=== PATIENT | female | born 1945 | race Caucasian/White ===

== ENCOUNTER 2021-05-16 16:49 | Outpatient (REF) | payer MEDICARE, SELFPAY ==
[2021-05-16 17:05] LABS: MANUAL DIFF FLAG NO
[2021-05-16 17:11] LABS: Basophils Absolute Auto 0.1 X10*3/uL (0.0-0.2); Basophils Percent Auto 0.7 % (0-2); Eosinophils Absolute Auto 0.6 X10*3/uL (0.0-0.4); Eosinophils Percent Auto 7.3 % (0-4); Hematocrit 34.4 % (37.0-47.0); Hemoglobin 11.1 g/dl (12.0-16.0); Imm Gran Abs Auto 0.01 X10*3/uL (0.00-0.03); Imm Gran Pct Auto 0.1 % (0.0-0.4); Lymphocytes Absolute Auto 2.6 X10*3/uL (1.2-4.9); Mean Corpuscular HGB Conc 32.3 g/dl (31.0-35.0); Mean Corpuscular Hemoglobin 29.5 pg (27.0-33.0); Mean Corpuscular Volume 91.5 fL (80.0-98.0); Mean Platelet Volume 10.5 fL (9.4-12.3); Monocytes Absolute Auto 0.6 X10*3/uL (0.1-1.2); Monocytes Percent Auto 7.1 % (2-11); Neutrophils Absolute Auto 4.6 x10*3/uL (2.0-8.3); Neutrophils Percent Auto 53.8 % (45-73); Platelet Count 205 X10*3/uL (160-400); Red Blood Count 3.76 X10*6/uL (4.20-5.50); Red Cell Distribution Width 14.5 % (11.0-16.0); White Blood Count 8.5 X10*3/uL (4.8-10.8)
[2021-05-16 17:30] LABS: Alanine Aminotransferase 7 U/L (0-31); Albumin Level 4.4 g/dL (3.5-5.0); Alkaline Phosphatase 87 U/L (39-117); Anion Gap 16 (12-20); Aspartate Amino Transferase 8 U/L (5-31); Bilirubin Total 0.3 mg/dL (0.0-1.0); Blood Urea Nitrogen 41 mg/dL (9-16); Calcium 10.3 mg/dL (8.4-10.2); Carbon Dioxide 25 mmol/L (22-29); Chloride 108 mmol/L (96-108); Estimated Glomerular Filt Rate 14; Glucose Random 172 mg/dL (60-115); Potassium 4.3 mmol/L (3.3-5.1); Sodium 145 mmol/L (135-145); Total Protein 7.9 g/dL (6.5-8.0)
[2021-05-16 18:08] LABS: Creatinine Urine 71.82 mg/dL; Protein/Creatinine Ratio, Ur 0.63 (<0.2); Total Protein Urine Random 45 mg/dL (<12)
[2021-05-17 16:02] LABS: PTHI 110 pg/mL (14-64)
== END 2021-05-16 16:50 | disposition home or self-care (01) ==
LOC: HO.LAB 16:49
PROVIDERS: Visit Provider Internal Medicine Hypertension Specialist
DX: I12.9 Hypertensive chronic kidney disease with stage 1 through stage 4 chronic kidney disease, or unspecified chronic kidney disease (principal); N18.9 Chronic kidney disease, unspecified
CPT/HCPCS: 36415; 80053; 83970; 84156; 85025

== ENCOUNTER 2021-07-25 14:55 | Outpatient (REF) | payer MEDICARE, SELFPAY ==
[2021-07-25 16:20] LABS: Anion Gap 12 (12-20); Blood Urea Nitrogen 36 mg/dL (9-16); Calcium 10.7 mg/dL (8.4-10.2); Carbon Dioxide 26 mmol/L (22-29); Chloride 109 mmol/L (96-108); Estimated Glomerular Filt Rate 17; Glucose Random 108 mg/dL (60-115); Potassium 4.2 mmol/L (3.3-5.1); Sodium 143 mmol/L (135-145)
[2021-07-25 17:22] LABS: Creatinine Urine 77.79 mg/dL; Protein/Creatinine Ratio, Ur 0.64 (<0.2); Total Protein Urine Random 50 mg/dL (<12)
[2021-07-26 07:54] LABS: ~Hepatitis C Antibody Nonreactive (Nonreactive)
[2021-07-26 07:57] LABS: HBsAGNum1 0.24 S/CO (0.00-0.99); Hepatitis B Surface Antigen Negative (Negative)
[2021-07-26 13:36] LABS: Anti Nuclear Antibody Screen NEGATIVE (NEGATIVE)
[2021-07-26 17:41] LABS: Complement C3 157 mg/dL (83-193)
[2021-07-27 12:21] LABS: Anti Glomerular Basement Memb <1.0 AI; Myeloperoxidase Antibody <1.0 AI; Proteinase 3 PR3 Antibodies <1.0 AI
[2021-07-31 07:12] LABS: Prot Elec - Albumin 4.2 g/dL (3.8-4.8); Prot Elec - Alpha1 0.3 g/dL (0.2-0.3); Prot Elec - Alpha2 0.9 g/dL (0.5-0.9); Prot Elec - Beta 1 0.5 g/dL (0.4-0.6); Prot Elec - Beta 2 0.4 g/dL (0.2-0.5); Prot Elec - Gamma 1.2 g/dL (0.8-1.7); Prot Elec - Total Protein 7.4 g/dL (6.1-8.1)
[2021-07-31 14:31] LABS: PEU-Protein Creat Ratio Rand 0.788 (0.021-0.161); PEU-Rand. Prot/Creat Ratio 788 mg/g creat (21-161); PEU-Random Ur. Gamma Globulin 15 %; PEU-Random Urine A1 Globulin 3 %; PEU-Random Urine A2 Globulin 8 %; PEU-Random Urine Albumin 57 %; PEU-Random Urine Beta Globulin 17 %; PEU-Random Urine Creatinine 80 mg/dL (20-275); PEU-Random Urine Protein 63 mg/dL (5-24)
[2021-08-01 16:31] LABS: IgA 294 mg/dL (70-320); IgG 1128 mg/dL (600-1540); IgM 120 mg/dL (50-300)
== END 2021-07-25 14:56 | disposition home or self-care (01) ==
LOC: HO.LAB 14:55
PROVIDERS: PCP Internal Medicine; Visit Provider Internal Medicine Hypertension Specialist
DX: N17.9 Acute kidney failure, unspecified (principal)
CPT/HCPCS: 80048; 82570; 82784; 83520; 84156; 84165; 84166; 86021; 86038; 86039; 86160; 86334; 86335; 86803; 87340

== ENCOUNTER 2021-10-17 15:45 | Outpatient (REF) | payer MEDICARE, SELFPAY ==
[2021-10-17 16:31] LABS: Appearance Urine CLEAR; Color Urine YELLOW; Glucose Urine UA NEG (NEG); Leukocyte Esterase Urine NEG (NEG); Nitrite Urine NEG (NEG); PH 5.5 (5.0-8.0); Specific Gravity - Urine 1.025 (1.005-1.025); Urine Blood 1+ (NEG); Urine Ketones NEG (NEG); Urine Protein 2+ MG/DL (NEG-TRACE)
[2021-10-17 16:39] LABS: WBC Urine 0 /HPF (0-4)
[2021-10-17 16:40] LABS: Bacteria Urine TRACE /LPF; Squamous Epithelial Cell Urine 2+ /LPF
[2021-10-17 16:44] LABS: Creatinine Urine 113.05 mg/dL; Protein/Creatinine Ratio, Ur 0.71 (<0.2); Total Protein Urine Random 80 mg/dL (<12)
[2021-10-18 04:14] LABS: HBc Num1 0.13 S/CO (0.00-0.79); HBsAGNum1 0.14 S/CO (0.00-0.99); Hepatitis B Core Antibody Nonreactive (Nonreactive); Hepatitis B Surface Antigen Negative (Negative)
[2021-10-18 22:22] LABS: Complement C3 162 mg/dL (83-193)
[2021-10-19 16:31] LABS: Anti Nuclear Antibody Screen NEGATIVE (NEGATIVE)
[2021-10-21 14:21] LABS: Anti Glomerular Basement Memb <1.0 AI
[2021-10-22 11:06] LABS: Prot Elec - Albumin 4.2 g/dL (3.8-4.8); Prot Elec - Alpha1 0.3 g/dL (0.2-0.3); Prot Elec - Alpha2 0.9 g/dL (0.5-0.9); Prot Elec - Beta 1 0.5 g/dL (0.4-0.6); Prot Elec - Beta 2 0.4 g/dL (0.2-0.5); Prot Elec - Total Protein 7.3 g/dL (6.1-8.1)
[2021-10-23 11:05] LABS: Neutrophil Cyto Ab Screen ATYP P-ANCA POS (NEGATIVE)
== END 2021-10-17 15:46 | disposition home or self-care (01) ==
LOC: HO.LAB 15:45
PROVIDERS: PCP Internal Medicine; Visit Provider Internal Medicine Hypertension Specialist
DX: I12.9 Hypertensive chronic kidney disease with stage 1 through stage 4 chronic kidney disease, or unspecified chronic kidney disease (principal); N18.4 Chronic kidney disease, stage 4 (severe)
CPT/HCPCS: 81001; 83520; 84156; 84165; 86036; 86037; 86038; 86039; 86160; 86335; 86704; 87340

== ENCOUNTER 2021-11-05 12:58 | Outpatient (REF) | payer MEDICARE, SELFPAY ==
[2021-11-05 13:49] LABS: MANUAL DIFF FLAG NO
[2021-11-05 14:00] LABS: Basophils Absolute Auto 0.1 X10*3/uL (0.0-0.2); Basophils Percent Auto 0.6 % (0-2); Eosinophils Absolute Auto 0.7 X10*3/uL (0.0-0.4); Eosinophils Percent Auto 8.8 % (0-4); Hematocrit 33.7 % (37.0-47.0); Hemoglobin 11.1 g/dl (12.0-16.0); Imm Gran Abs Auto 0.02 X10*3/uL (0.00-0.03); Imm Gran Pct Auto 0.2 % (0.0-0.4); Lymphocytes Absolute Auto 2.4 X10*3/uL (1.2-4.9); Mean Corpuscular HGB Conc 32.9 g/dl (31.0-35.0); Mean Corpuscular Hemoglobin 29.8 pg (27.0-33.0); Mean Corpuscular Volume 90.6 fL (80.0-98.0); Mean Platelet Volume 10.7 fL (9.4-12.3); Monocytes Absolute Auto 0.8 X10*3/uL (0.1-1.2); Monocytes Percent Auto 10.2 % (2-11); Neutrophils Absolute Auto 4.1 x10*3/uL (2.0-8.3); Neutrophils Percent Auto 50.2 % (45-73); Platelet Count 174 X10*3/uL (160-400); Red Blood Count 3.72 X10*6/uL (4.20-5.50); Red Cell Distribution Width 13.8 % (11.0-16.0); White Blood Count 8.1 X10*3/uL (4.8-10.8)
[2021-11-05 14:09] LABS: Prothrombin Time 10.9 SEC (9.9-13.0)
[2021-11-05 14:39] LABS: Anion Gap 12 (12-20); Blood Urea Nitrogen 37 mg/dL (9-16); Calcium 10.3 mg/dL (8.4-10.2); Carbon Dioxide 26 mmol/L (22-29); Chloride 107 mmol/L (96-108); Estimated Glomerular Filt Rate 16; Potassium 4.3 mmol/L (3.3-5.1); Sodium 141 mmol/L (135-145)
== END 2021-11-05 12:59 | disposition home or self-care (01) ==
LOC: HO.LAB 12:58
PROVIDERS: PCP Internal Medicine; Visit Provider Internal Medicine Hypertension Specialist
DX: N18.4 Chronic kidney disease, stage 4 (severe) (principal)
CPT/HCPCS: 36415; 80051; 82310; 82565; 84520; 85025; 85610

== ENCOUNTER 2022-06-22 13:53 | Emergency (ER) | payer MEDICARE, SELFPAY ==
--- NOTE | ~2022-06-22 | XR_ITS ---
EXAMINATION: XR SHOULDER, RIGHT CLINICAL INFORMATION: Right shoulder pain COMPARISON: None TECHNIQUE: AP external rotation, Grashey, scapular Y, and axillary views of the right shoulder. FINDINGS: The glenohumeral joint space maintained. Minimal reduction AC joint space with inferior acromial spurring. There is a sclerotic lesion humeral head likely osteoid osteoma. No visible fracture or dislocation seen but is mild anterior periarticular spurring. No soft tissue calcification seen. XR/XR shoulder RT min 2V IMPRESSION: Mild degenerative changes right A.C. joint with inferior acromial and periarticular spurring. No visible acute fracture or dislocation seen. Sclerotic lesion or right humeral head, likely osteoid osteoma
[2022-06-22 14:04] VITALS: BP 154/76; PULSE 88; RESP 18; TEMP 36.8; O2SAT 98; BMI 27.4
--- NOTE | 2022-06-22 14:05 | ED.GENADULT ---
HPI - General Adult General Chief complaint: Extremity Injury, Upper <DREAD Hugo - Last Filed: 06/22/22 18:32> Stated complaint: R arm/shoulder pain no inj <DREAD Hugo - Last Filed: 06/22/22 18:32> Time Seen by Provider: 06/22/22 15:18 <DREAD Hugo - Last Filed: 06/22/22 18:32> History of Present Illness HPI narrative: Patient complains of atraumatic right shoulder pain which began yesterday without injury She denies any redness or swelling, it hurts to move the arm but she is able to move it, she has no other swollen joints denies any fever denies any numbness weakness or tingling, no chest pain no shortness of breath <DREAD Baez - Last Filed: 06/28/22 11:46> Related Data Allergies/adverse reactions: Allergies Allergy/AdvReac Type Severity Reaction Status Date / Time No Known Allergies Allergy Verified 06/22/22 14:04 <DREAD Hugo - Last Filed: 06/22/22 18:32> [facility] Past Medical History Source: nursing notes reviewed <DREAD Baez - Last Filed: 06/28/22 11:46> Physical Exam ED Vital Signs: Vital Signs - 24 hr 06/22/22 14:04 Temperature 98.2 F Pulse Rate 88 Respiratory Rate 18 Blood Pressure 154/76 H Pulse Oximetry 98 Oxygen Delivery Method Room Air BMI result Body Mass Index 27.4 <DREAD Hugo Last Filed: 06/22/22 18:32> Vital Signs - 24 hr 06/22/22 14:04 Temperature 98.2 F Pulse Rate 88 Respiratory Rate 18 Blood Pressure 154/76 H Pulse Oximetry 98 Oxygen Delivery Method Room Air BMI result Body Mass Index 27.4 <DREAD Baez - Last Filed: 06/28/22 11:46> General appearance comfortable no distress Head is normocephalic atraumatic Neck is supple Respiratory no distress Chest clear to auscultation bilateral Heart no murmur Abdomen soft nontender Extremities the right shoulder is not red it is not warm there is no rash or wound no swelling The right shoulder does have full range of motion but there is some discomfort with range of motion, neurovascular intact distal, there was tenderness to the anterior and lateral deltoid area of the shoulder Other extremities normal Neuro no focal motor sensory deficits <DREAD Baez - Last Filed: 06/28/22 11:46> Course Course Course Narrative: RME: 76 yold female presents to the ED for right shoulder pain that is worse on movement without any trauma. Symptoms since yesterday. patient deneis redness or swelling. NEuro/vascular exam of extremity intact. shoulder motor movement limited due to pain. shoulder xray ordered. <DREAD Hugo Last Filed: 06/22/22 18:32> RME: 76 yold female presents to the ED for right shoulder pain that is worse on movement without any trauma. Symptoms since yesterday. patient deneis redness or swelling. NEuro/vascular exam of extremity intact. shoulder motor movement limited due to pain. shoulder xray ordered. 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, Osteoid osteoma <DREAD Hugo Last Filed: 06/22/22 18:32> Patient Disposition: Home, Self-Care <DREAD Hugo Last Filed: 06/22/22 18:32> Additional Instructions: X-ray showed some arthritic changes There was also a probable osteoma, which is a likely benign lesion that may or may not be causing your pain, so follow with orthopedist for further evaluation and possible treatment Exam did not show any sign of infection, there were no broken bone seen on the x-ray Use Tylenol if needed Return any time any worse condition or any concerns <DREAD Hugo Last Filed: 06/22/22 18:32> Referrals: Bubba Lim MD [Physician] - (Right shoulder pain) <DREAD Hugo Last Filed: 06/22/22 18:32> Interventions: ED Discharge Assessment Last Done: 06/22/22 16:09 <DREAD Hugo - Last Filed: 06/22/22 18:32> Discharge Date/Time: 06/22/22 16:11 <DREAD Hugo - Last Filed: 06/22/22 18:32>
== END 2022-06-22 16:11 | disposition home or self-care (01) ==
PROVIDERS: Emergency Provider Emergency Medicine; PCP Internal Medicine
DX: M25.511 Pain in right shoulder (principal)
CPT/HCPCS: 73030; 99282; 99283

== ENCOUNTER → 2022-07-10 10:22 | Outpatient (BNVA) | payer MEDICARE, SELFPAY | PROVIDERS: PCP Internal Medicine; Visit Provider Physician Assistant | DX: M75.101 Unspecified rotator cuff tear or rupture of right shoulder, not specified as traumatic (principal) | CPT/HCPCS: 99202 ==

== ENCOUNTER 2022-09-18 15:41 | Outpatient (REF) | payer MEDICARE, SELFPAY ==
[2022-09-18 17:48] LABS: Hematocrit 34.2 % (37.0-47.0); Hemoglobin 11.1 g/dl (12.0-16.0); Mean Corpuscular HGB Conc 32.5 g/dl (31.0-35.0); Mean Corpuscular Hemoglobin 29.1 pg (27.0-33.0); Mean Corpuscular Volume 89.5 fL (80.0-98.0); Mean Platelet Volume 10.9 fL (9.4-12.3); Platelet Count 215 X10*3/uL (160-400); Red Blood Count 3.82 X10*6/uL (4.20-5.50); Red Cell Distribution Width 14.1 % (11.0-16.0); White Blood Count 7.9 X10*3/uL (4.8-10.8)
[2022-09-18 18:13] LABS: Anion Gap 16 (12-20); Blood Urea Nitrogen 38 mg/dL (9-16); Calcium 9.3 mg/dL (8.4-10.2); Carbon Dioxide 22 mmol/L (22-29); Chloride 110 mmol/L (96-108); Estimated Glomerular Filt Rate 17; Glucose Random 113 mg/dL (60-115); Potassium 4.6 mmol/L (3.3-5.1); Sodium 143 mmol/L (135-145)
[2022-09-22 11:03] LABS: Calcium (PTHI) 9.7 mg/dL (8.6-10.4); PTHI 120 pg/mL (16-77)
== END 2022-09-18 15:42 | disposition home or self-care (01) ==
LOC: HO.LAB 15:41
PROVIDERS: Visit Provider Internal Medicine Hypertension Specialist
DX: N18.4 Chronic kidney disease, stage 4 (severe) (principal)
CPT/HCPCS: 36415; 80048; 83970; 85027

== ENCOUNTER 2023-03-02 14:07 | Outpatient (REF) | payer MEDICARE, SELFPAY ==
[2023-03-02 16:05] LABS: Alanine Aminotransferase 7 U/L (0-31); Albumin Level 4.1 g/dL (3.5-5.0); Alkaline Phosphatase 69 U/L (39-117); Anion Gap 14 (12-20); Aspartate Amino Transferase 8 U/L (5-31); Bilirubin Total 0.4 mg/dL (0.0-1.0); Blood Urea Nitrogen 38 mg/dL (9-16); Calcium 9.1 mg/dL (8.4-10.2); Carbon Dioxide 21 mmol/L (22-29); Chloride 111 mmol/L (96-108); Estimated Glomerular Filt Rate 18; Glucose Random 154 mg/dL (60-115); Sodium 142 mmol/L (135-145); Total Protein 7.3 g/dL (6.5-8.0)
[2023-03-03 15:18] LABS: Calcium (PTHI) 9.1 mg/dL (8.6-10.4); PTHI 149 pg/mL (16-77)
== END 2023-03-02 14:08 | disposition home or self-care (01) ==
LOC: HO.LAB 14:07
PROVIDERS: PCP Internal Medicine; Visit Provider Internal Medicine Hypertension Specialist
DX: N18.4 Chronic kidney disease, stage 4 (severe) (principal)
CPT/HCPCS: 36415; 80053; 83970

== ENCOUNTER 2023-07-06 11:27 | Outpatient (AMB) | payer MEDICARE, SELFPAY ==
[2023-07-06 11:30] VITALS: BP 130/56; PULSE 82; O2SAT 96; BMI 28.3
--- NOTE | 2023-07-06 11:30 | HO.NEPHOV ---
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 She is here for further follow-up. No specific complaints today. PFSH Family History Mother Diabetes Hypertension H/O kidney removal Social History (Updated 07/06/23 @ 11:33 by Kierra Bobby) Alcohol intake: never Patient Tobacco Use Status: Former Tobacco user Vital Signs 07/06/23 11:30 Height 5 ft 6 in Weight 175 lb 8 oz BMI 28.3 BP 130/56 L Blood Pressure Location Rt brachial Position Sitting Pulse 82 Pulse Source Pulse Oximeter Pulse Oximetry (%) 96 Oxygen Delivery Method Room Air Physical Exam Vital Signs: Last Vital Signs Pulse 82 07/06/23 11:30 BP 130/56 L 07/06/23 11:30 Pulse Ox 96 07/06/23 11:30 Oxygen Delivery Method Room Air 07/06/23 11:30 BMI result Body Mass Index 28.3 Const General: comfortable Nutritional Appearance: well nourished Orientation/consciousness: patient oriented x3 HEENT Head: No normal to inspection Mouth: moist mucous membranes Neck Neck: Yes supple and Yes no JVD Resp Auscultation: clear to auscultation bilaterally, no rales and rub present Cardio Jugular venous distension: no JVD Palpation: no palpable S3 and no palpable S4 Heart sounds: no rubs GI Palpation (GI): Soft to palpation and nontender Percussion: No Fluid wave present General: Yes no CVA tenderness Back/Spine/Pelvis Back: no CVA tenderness Skin General skin exam: no rashes or lesions noted Neuro General: patient oriented x3 Extrem General: Yes no pedal edema and No clubbing Assessment & Plan Assessment & Plan (1) CKD (chronic kidney disease): Code(s): N18.9 - Chronic kidney disease, unspecified (2) Diabetes mellitus: Code(s): E11.9 - Type 2 diabetes mellitus without complications Plan Elderly woman with longstanding diabetes mellitus with CKD 4. 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 At present renal function stable at baseline. Goal is to slow the portion disease Continue to avoid nephrotoxic agents. Optimize blood pressure and maintain blood pressure less than 130/80. Continue with losartan for renal protection. All questions were answered. Orders: Orders Complete Blood Count no Diff 07/06/23 N18.9 - Chronic kidney disease, unspecified Comprehensive Met. Panel 07/06/23 N18.9 - Chronic kidney disease, unspecified Parathyroid Hormone Intact 07/06/23 N18.9 - Chronic kidney disease, unspecified Vitamin D 25-OH (D2 and D3) 07/06/23 N18.9 - Chronic kidney disease, unspecified Creatinine Urine 07/06/23 N18.9 - Chronic kidney disease, unspecified Total Protein Urine Random 07/06/23 N18.9 - Chronic kidney disease, unspecified UA and rflx microscopic 07/06/23 N18.9 - Chronic kidney disease, unspecified Hemoglobin A1c 07/06/23 N18.9 - Chronic kidney disease, unspecified, E11.9 - Type 2 diabetes mellitus without complications Coding Level of Care Code Est Pt Level 4 (80000) Diagnoses CKD (chronic kidney disease) N18.9 Diabetes mellitus E11.9 Results Reviewed Nephrology Results: Hgb 11.1 g/dl (12.0-16.0) L 07/06/23 WBC 7.7 X10*3/uL (4.8-10.8) 07/06/23 Plt Count 217 X10*3/uL (160-400) 07/06/23 Sodium 144 mmol/L (135-145) 07/06/23 Potassium 4.3 mmol/L (3.3-5.1) 07/06/23 Chloride 114 mmol/L (96-108) H 07/06/23 Carbon Dioxide 20 mmol/L (22-29) L 07/06/23 BUN 45 mg/dL (9-16) H 07/06/23 Creatinine 2.85 mg/dL (0.5-1.4) H 07/06/23 Calcium 9.8 mg/dL (8.4-10.2) 07/06/23 PTH Intact 101.1 pg/mL (8.7-77.1) H 07/06/23 Urine Protein 100 (2+) mg/dL (Neg-Trace) H 07/06/23 Urine Creatinine 147.27 mg/dL 07/06/23 Protein/Creatinin Ratio 0.71 (<0.2) H 10/17/21
== END 2023-07-06 11:48 | disposition home or self-care (01) ==
PROVIDERS: PCP Internal Medicine; Visit Provider Internal Medicine Hypertension Specialist
DX: N18.9 Chronic kidney disease, unspecified (principal); E11.9 Type 2 diabetes mellitus without complications
CPT/HCPCS: 99214

== ENCOUNTER → 2023-07-06 11:27 | Outpatient (BNVA) | payer MEDICARE, SELFPAY | PROVIDERS: PCP Internal Medicine; Visit Provider Internal Medicine Hypertension Specialist | DX: E11.22 Type 2 diabetes mellitus with diabetic chronic kidney disease (principal); N18.4 Chronic kidney disease, stage 4 (severe) | CPT/HCPCS: 99212 ==

== ENCOUNTER 2023-07-06 11:52 | Outpatient (REF) | payer MEDICARE, SELFPAY ==
[2023-07-06 13:19] LABS: Hematocrit 34.6 % (37.0-47.0); Hemoglobin 11.1 g/dl (12.0-16.0); Mean Corpuscular HGB Conc 32.1 g/dl (31.0-35.0); Mean Corpuscular Hemoglobin 29.1 pg (27.0-33.0); Mean Corpuscular Volume 90.8 fL (80.0-98.0); Mean Platelet Volume 11.1 fL (9.4-12.3); Platelet Count 217 X10*3/uL (160-400); Red Blood Count 3.81 X10*6/uL (4.20-5.50); Red Cell Distribution Width 13.9 % (11.0-16.0); White Blood Count 7.7 X10*3/uL (4.8-10.8)
[2023-07-06 13:21] LABS: Appearance Urine Cloudy; Color Urine Yellow; Glucose Urine UA Negative (Negative); Leukocyte Esterase Urine Small (1+) (Negative); Nitrite Urine Negative (Negative); PH 5.5 (5.0-9.0); Specific Gravity - Urine 1.015 (1.005-1.025); UMIC TRIGGER UA YES; Urine Blood Trace (Negative); Urine Ketones Negative (Negative); Urine Protein 100 (2+) mg/dL (Neg-Trace)
[2023-07-06 13:40] LABS: Estimated Average Glucose 140 mg/dL; Hemoglobin A1c % 6.5 % (<6.0)
[2023-07-06 13:50] LABS: Bacteria Urine Trace (None Seen); Granular Casts Urine Present; RBC Urine 0-2 /HPF (0-2)
[2023-07-06 14:00] LABS: Alanine Aminotransferase 12 U/L (0-31); Albumin Level 4.2 g/dL (3.5-5.0); Alkaline Phosphatase 67 U/L (39-117); Anion Gap 14 (12-20); Aspartate Amino Transferase 13 U/L (5-31); Bilirubin Total 0.3 mg/dL (0.0-1.0); Blood Urea Nitrogen 45 mg/dL (9-16); Calcium 9.8 mg/dL (8.4-10.2); Carbon Dioxide 20 mmol/L (22-29); Chloride 114 mmol/L (96-108); Estimated Glomerular Filt Rate 16; Glucose Random 133 mg/dL (60-115); Parathyroid Hormone Intact 101.1 pg/mL (8.7-77.1); Potassium 4.3 mmol/L (3.3-5.1); Sodium 144 mmol/L (135-145); Total Protein 7.7 g/dL (6.5-8.0)
[2023-07-06 14:03] LABS: Creatinine Urine 147.27 mg/dL; Total Protein Urine Random 127 mg/dL (<12)
[2023-07-10 14:22] LABS: Vitamin D 25-OH, D2 <4 ng/mL; Vitamin D 25-OH, D3 44 ng/mL; Vitamin D 25-OH, Total 44 ng/mL (30-100)
== END 2023-07-06 11:53 | disposition home or self-care (01) ==
LOC: HO.10HDL 11:52
PROVIDERS: Visit Provider Internal Medicine Hypertension Specialist
DX: E11.22 Type 2 diabetes mellitus with diabetic chronic kidney disease (principal); N18.9 Chronic kidney disease, unspecified
CPT/HCPCS: 36415; 80053; 81001; 82306; 82570; 83036; 83970; 84156; 85027

== ENCOUNTER 2023-10-05 11:33 | Outpatient (AMB) | payer MEDICARE, SELFPAY ==
[2023-10-05 11:34] VITALS: BP 132/66; PULSE 121; O2SAT 95; BMI 29.0
--- NOTE | 2023-10-05 11:34 | HO.NEPHOV ---
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 h/o P-ANCA positivity She is here for further follow-up. No specific complaints today. PFSH Family History Mother Diabetes Hypertension H/O kidney removal Social History Alcohol intake: never Patient Tobacco Use Status: Former Tobacco user Physical Exam Vital Signs: Last Vital Signs Pulse 121 H 10/05/23 11:34 BP 132/66 10/05/23 11:34 Pulse Ox 95 10/05/23 11:34 Oxygen Delivery Method Room Air 10/05/23 11:34 BMI result Body Mass Index 29.0 Const General: comfortable Nutritional Appearance: well nourished Orientation/consciousness: patient oriented x3 HEENT Head: No normal to inspection Mouth: moist mucous membranes Neck Neck: Yes supple and Yes no JVD Resp Auscultation: clear to auscultation bilaterally, no rales and rub present Cardio Jugular venous distension: no JVD Palpation: no palpable S3 and no palpable S4 Heart sounds: no rubs GI Palpation (GI): Soft to palpation and nontender Percussion: No Fluid wave present General: Yes no CVA tenderness Back/Spine/Pelvis Back: no CVA tenderness Skin General skin exam: no rashes or lesions noted Neuro General: patient oriented x3 Extrem General: Yes no pedal edema and No clubbing Results Reviewed Nephrology Results: Hgb 11.1 g/dl (12.0-16.0) L 07/06/23 WBC 7.7 X10*3/uL (4.8-10.8) 07/06/23 Plt Count 217 X10*3/uL (160-400) 07/06/23 Sodium 144 mmol/L (135-145) 07/06/23 Potassium 4.3 mmol/L (3.3-5.1) 07/06/23 Chloride 114 mmol/L (96-108) H 07/06/23 Carbon Dioxide 20 mmol/L (22-29) L 07/06/23 BUN 45 mg/dL (9-16) H 07/06/23 Creatinine 2.85 mg/dL (0.5-1.4) H 07/06/23 Calcium 9.8 mg/dL (8.4-10.2) 07/06/23 PTH Intact 101.1 pg/mL (8.7-77.1) H 07/06/23 Urine Protein 100 (2+) mg/dL (Neg-Trace) H 07/06/23 Urine Creatinine 147.27 mg/dL 07/06/23 Protein/Creatinin Ratio 0.71 (<0.2) H 10/17/21 Assessment & Plan Assessment & Plan (1) CKD (chronic kidney disease): Code(s): N18.9 - Chronic kidney disease, unspecified Category: Medical (2) Diabetes mellitus: Code(s): E11.9 - Type 2 diabetes mellitus without complications Category: Medical Plan Elderly woman with longstanding diabetes mellitus with CKD 4. 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 At present renal function stable at baseline. Goal is to slow the portion disease Continue to avoid nephrotoxic agents. Optimize blood pressure and maintain blood pressure less than 130/80. Continue with losartan for renal protection. h/o P-ANCA positivity- shall recheck All questions were answered. Orders: Orders Comprehensive Met. Panel Today N18.9 - Chronic kidney disease, unspecified Parathyroid Hormone Intact Today N18.9 - Chronic kidney disease, unspecified Neutrophil Cytoplasma Ab Today N18.9 - Chronic kidney disease, unspecified Myeloperoxidase Antibody Today N18.9 - Chronic kidney disease, unspecified Proteinase 3 PR3 Antibodies Today N18.9 - Chronic kidney disease, unspecified Complete Blood Count Auto Diff Today N18.30 - Chronic kidney disease, stage 3 unspecified, N18.9 - Chronic kidney disease, unspecified Hemoglobin A1c Today N18.9 - Chronic kidney disease, unspecified Phosphorus Today N18.9 - Chronic kidney disease, unspecified Coding Level of Care Code Est Pt Level 4 (40089) Diagnoses CKD (chronic kidney disease) N18.9 Diabetes mellitus E11.9
== END 2023-10-05 11:48 | disposition home or self-care (01) ==
PROVIDERS: PCP Internal Medicine; Visit Provider Internal Medicine Hypertension Specialist
DX: N18.9 Chronic kidney disease, unspecified (principal); E11.9 Type 2 diabetes mellitus without complications
CPT/HCPCS: 99214

== ENCOUNTER → 2023-10-05 11:33 | Outpatient (BNVA) | payer MEDICARE, SELFPAY | PROVIDERS: PCP Internal Medicine; Visit Provider Internal Medicine Hypertension Specialist | DX: E11.22 Type 2 diabetes mellitus with diabetic chronic kidney disease (principal); E11.21 Type 2 diabetes mellitus with diabetic nephropathy; N18.4 Chronic kidney disease, stage 4 (severe) | CPT/HCPCS: 99212 ==

== ENCOUNTER 2023-10-06 12:05 | Outpatient (REF) | payer MEDICARE, SELFPAY ==
[2023-10-06 13:15] LABS: MANUAL DIFF FLAG NO
[2023-10-06 13:30] LABS: Basophils Absolute Auto 0.1 X10*3/uL (0.0-0.2); Basophils Percent Auto 0.9 % (0-2); Eosinophils Absolute Auto 0.4 X10*3/uL (0.0-0.4); Hematocrit 33.4 % (37.0-47.0); Hemoglobin 11.1 g/dl (12.0-16.0); Imm Gran Abs Auto 0.04 X10*3/uL (0.00-0.03); Imm Gran Pct Auto 0.5 % (0.0-0.4); Lymphocytes Absolute Auto 1.8 X10*3/uL (1.2-4.9); Lymphocytes Percent Auto 23.5 % (20-40); Mean Corpuscular HGB Conc 33.2 g/dl (31.0-35.0); Mean Corpuscular Hemoglobin 30.6 pg (27.0-33.0); Mean Platelet Volume 10.9 fL (9.4-12.3); Monocytes Absolute Auto 0.8 X10*3/uL (0.1-1.2); Monocytes Percent Auto 10.5 % (2-11); Neutrophils Absolute Auto 4.5 x10*3/uL (2.0-8.3); Neutrophils Percent Auto 59.6 % (45-73); Platelet Count 182 X10*3/uL (160-400); Red Blood Count 3.63 X10*6/uL (4.20-5.50); Red Cell Distribution Width 14.4 % (11.0-16.0); White Blood Count 7.5 X10*3/uL (4.8-10.8)
[2023-10-06 13:54] LABS: Alanine Aminotransferase 12 U/L (0-31); Albumin Level 4.1 g/dL (3.5-5.0); Alkaline Phosphatase 68 U/L (39-117); Anion Gap 12 (12-20); Aspartate Amino Transferase 12 U/L (5-31); Bilirubin Total 0.4 mg/dL (0.0-1.0); Blood Urea Nitrogen 30 mg/dL (9-16); Calcium 8.9 mg/dL (8.4-10.2); Carbon Dioxide 21 mmol/L (22-29); Chloride 114 mmol/L (96-108); Estimated Glomerular Filt Rate 18; Glucose Random 251 mg/dL (60-115); Phosphorus 3.2 mg/dL (2.7-4.5); Potassium 3.9 mmol/L (3.3-5.1); Sodium 143 mmol/L (135-145); Total Protein 7.4 g/dL (6.5-8.0)
[2023-10-06 15:13] LABS: Estimated Average Glucose 151 mg/dL; Hemoglobin A1C 150.3066 umol/L; Hemoglobin A1c % 6.9 % (<6.0)
[2023-10-06 16:08] LABS: Parathyroid Hormone Intact 308.8 pg/mL (8.7-77.1)
[2023-10-07 20:23] LABS: Myeloperoxidase Antibody <1.0 AI; Proteinase 3 PR3 Antibodies <1.0 AI
[2023-10-09 14:27] LABS: Atypical P-ANCA Titer 1:40 titer (<1:20); Neutrophil Cyto Ab Screen ATYP P-ANCA POS (NEGATIVE)
== END 2023-10-06 12:06 | disposition home or self-care (01) ==
LOC: HO.10HDL 12:05
PROVIDERS: Visit Provider Internal Medicine Hypertension Specialist
DX: N18.9 Chronic kidney disease, unspecified (principal); N18.30 Chronic kidney disease, stage 3 unspecified
CPT/HCPCS: 36415; 80053; 83036; 83970; 84100; 85025; 86021; 86036; 86037

== ENCOUNTER 2024-02-01 11:20 | Outpatient (REF) | payer MEDICARE, SELFPAY ==
[2024-02-01 12:05] LABS: MANUAL DIFF FLAG NO
[2024-02-01 12:46] LABS: Basophils Absolute Auto 0.1 X10*3/uL (0.0-0.2); Basophils Percent Auto 0.8 % (0-2); Eosinophils Absolute Auto 0.5 X10*3/uL (0.0-0.4); Eosinophils Percent Auto 6.1 % (0-4); Hematocrit 34.6 % (37.0-47.0); Hemoglobin 11.3 g/dl (12.0-16.0); Imm Gran Abs Auto 0.02 X10*3/uL (0.00-0.03); Imm Gran Pct Auto 0.3 % (0.0-0.4); Lymphocytes Absolute Auto 1.7 X10*3/uL (1.2-4.9); Lymphocytes Percent Auto 22.2 % (20-40); Mean Corpuscular HGB Conc 32.7 g/dl (31.0-35.0); Mean Corpuscular Hemoglobin 30.2 pg (27.0-33.0); Mean Corpuscular Volume 92.5 fL (80.0-98.0); Mean Platelet Volume 10.6 fL (9.4-12.3); Monocytes Absolute Auto 0.7 X10*3/uL (0.1-1.2); Monocytes Percent Auto 9.2 % (2-11); Neutrophils Absolute Auto 4.7 x10*3/uL (2.0-8.3); Neutrophils Percent Auto 61.4 % (45-73); Platelet Count 168 X10*3/uL (160-400); Red Blood Count 3.74 X10*6/uL (4.20-5.50); White Blood Count 7.6 X10*3/uL (4.8-10.8)
[2024-02-01 13:10] LABS: Estimated Average Glucose 148 mg/dL; Hemoglobin A1c % 6.8 % (<6.0)
[2024-02-01 13:13] LABS: Alanine Aminotransferase 17 U/L (0-31); Albumin Level 4.2 g/dL (3.5-5.0); Alkaline Phosphatase 57 U/L (39-117); Anion Gap 14 (12-20); Aspartate Amino Transferase 15 U/L (5-31); Bilirubin Total 0.6 mg/dL (0.0-1.0); Blood Urea Nitrogen 31 mg/dL (9-16); Calcium 9.2 mg/dL (8.4-10.2); Carbon Dioxide 23 mmol/L (22-29); Chloride 109 mmol/L (96-108); Estimated Glomerular Filt Rate 17; Glucose Random 144 mg/dL (60-115); Potassium 4.8 mmol/L (3.3-5.1); Sodium 141 mmol/L (135-145); Total Protein 7.4 g/dL (6.5-8.0); Uric Acid 6.1 mg/dL (2.4-5.7)
[2024-02-01 13:14] LABS: Parathyroid Hormone Intact 305.9 pg/mL (8.7-77.1)
[2024-02-01 13:34] LABS: Appearance Urine Clear; Color Urine Yellow; Glucose Urine UA Negative (Negative); Leukocyte Esterase Urine Small (1+) (Negative); Nitrite Urine Negative (Negative); PH 5.5 (5.0-9.0); UMIC TRIGGER UA YES; Urine Blood Trace (Negative); Urine Ketones Negative (Negative); Urine Protein 100 (2+) mg/dL (Neg-Trace)
[2024-02-01 13:59] LABS: Creatinine Urine 63.53 mg/dL; Total Protein Urine Random 81 mg/dL (<12)
[2024-02-01 14:04] LABS: Bacteria Urine None Seen (None Seen); Hyaline Casts Urine 0-2 /LPF (0-2); RBC Urine 0-2 /HPF (0-2); Squamous Epithelial Cell Urine 0-2 /HPF (0-2); WBC Urine 0-5 /HPF (0-5)
== END 2024-02-01 11:21 | disposition home or self-care (01) ==
LOC: HO.LAB 11:20
PROVIDERS: PCP Internal Medicine; Visit Provider Internal Medicine Hypertension Specialist
DX: N18.9 Chronic kidney disease, unspecified (principal); E11.9 Type 2 diabetes mellitus without complications
CPT/HCPCS: 36415; 80053; 81001; 82570; 83036; 83970; 84156; 84550; 85025; 99212

== ENCOUNTER 2024-02-01 11:20 | Outpatient (AMB) | payer MEDICARE, SELFPAY ==
--- NOTE | 2024-02-01 11:22 | HO.NEPHOV ---
Vital Signs 02/01/24 11:23 Height 5 ft 6 in Weight 180 lb BMI 29.0 BP 130/58 L Blood Pressure Location Lt brachial Position Sitting Pulse 120 H Pulse Source Pulse Oximeter Pulse Oximetry (%) 93 Oxygen Delivery Method Room Air Intake Visit Reasons: CKD/ 4 MO FU/ Unable to reach Lactation Consultant Required: No Accompanied by: Self / Same As Patient Allergies shellfish Allergy (Mild, Uncoded 10/05/23 11:36) Unknown Medication List - Last Reconciled 02/01/24 by Fadi Stokes MD albuterol sulfate 90 mcg/actuation 2 puffs inhalation Q4H PRN alendronate 70 mg PO QWEEK amlodipine 5 mg PO DAILY cholecalciferol (vitamin D3) 50 mcg PO DAILY colestipol 1 g PO DAILY PRN heoemanebuw-wspordxnu-qzfsoknt 200-62.5-25 mcg (Trelegy Ellipta) 1 inh inhalation DAILY losartan 25 mg PO DAILY montelukast 10 mg PO DAILY simvastatin 10 mg PO BEDTIME sitagliptin phosphate (Januvia) 100 mg PO DAILY HPI Comments Details: Elderly woman with a history of longstanding diabetes mellitus with 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 h/o P-ANCA positivity She is here for further follow-up. No specific complaints today. PFSH Family History Mother Diabetes Hypertension H/O kidney removal Social History Alcohol intake: never Patient Tobacco Use Status: Former Tobacco user Physical Exam Vital Signs: Last Vital Signs Pulse 120 H 02/01/24 11:23 BP 130/58 L 02/01/24 11:23 Pulse Ox 93 02/01/24 11:23 Oxygen Delivery Method Room Air 02/01/24 11:23 BMI result Body Mass Index 29.0 Const General: comfortable; No acute distress Orientation/consciousness: patient oriented x3 Eyes General: appearance normal, both eyes and all related structures Visual Barriga: normal visual barriga by confrontation Neck Neck: Yes supple and Yes no JVD Resp Effort & Inspection: normal respiratory effort and respiratory effort not decreased Auscultation: rhonchi Cardio Palpation: no palpable S3 and no palpable S4 Heart sounds: no rubs GI Inspection: Yes normal to inspection Palpation (GI): Soft to palpation Percussion: Yes normal to percussion Auscultation: normal bowel sounds General: Yes no CVA tenderness Back/Spine/Pelvis Back: no CVA tenderness Skin General skin exam: no petechiae and no purpura Neuro General: patient oriented x3 and no focal motor deficits Extrem General: No clubbing and No edema Results Reviewed Nephrology Results: Hgb 11.1 g/dl (12.0-16.0) L 10/06/23 WBC 7.5 X10*3/uL (4.8-10.8) 10/06/23 Plt Count 182 X10*3/uL (160-400) 10/06/23 Sodium 143 mmol/L (135-145) 10/06/23 Potassium 3.9 mmol/L (3.3-5.1) 10/06/23 Chloride 114 mmol/L (96-108) H 10/06/23 Carbon Dioxide 21 mmol/L (22-29) L 10/06/23 BUN 30 mg/dL (9-16) H 10/06/23 Creatinine 2.58 mg/dL (0.5-1.4) H 10/06/23 Calcium 8.9 mg/dL (8.4-10.2) 10/06/23 Phosphorus 3.2 mg/dL (2.7-4.5) 10/06/23 PTH Intact 308.8 pg/mL (8.7-77.1) H 10/06/23 Urine Protein 100 (2+) mg/dL (Neg-Trace) H 07/06/23 Urine Creatinine 147.27 mg/dL 07/06/23 Protein/Creatinin Ratio 0.71 (<0.2) H 10/17/21 Assessment & Plan Assessment & Plan (1) CKD (chronic kidney disease): Code(s): N18.9 - Chronic kidney disease, unspecified Category: Medical (2) Diabetes mellitus: Code(s): E11.9 - Type 2 diabetes mellitus without complications Category: Medical Plan Elderly woman with longstanding diabetes mellitus with CKD 4. 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 At present renal function stable at baseline. Goal is to slow the portion disease Continue to avoid nephrotoxic agents. Optimize blood pressure and maintain blood pressure less than 130/80. Continue with losartan for renal protection. ALong with JAnuvia h/o P-ANCA positivity REcheck PTH and add CAlcitriol if needed Am=nemia- HgB is stbale at 11.1 All questions were answered. Orders: Orders Comprehensive Met. Panel Today N18.9 - Chronic kidney disease, unspecified Creatinine Urine Today N18.9 - Chronic kidney disease, unspecified Complete Blood Count Auto Diff Today N18.9 - Chronic kidney disease, unspecified Total Protein Urine Random Today N18.9 - Chronic kidney disease, unspecified Parathyroid Hormone Intact Today N18.9 - Chronic kidney disease, unspecified Hemoglobin A1c Today N18.9 - Chronic kidney disease, unspecified Coding Level of Care Code Est Pt Level 4 (34209) Diagnoses CKD (chronic kidney disease) N18.9 Diabetes mellitus E11.9
[2024-02-01 11:23] VITALS: BP 130/58; PULSE 120; O2SAT 93; BMI 29.0
== END 2024-02-01 11:39 | disposition home or self-care (01) ==
PROVIDERS: PCP Internal Medicine; Visit Provider Internal Medicine Hypertension Specialist
DX: N18.9 Chronic kidney disease, unspecified (principal); E11.9 Type 2 diabetes mellitus without complications
CPT/HCPCS: 99214

== ENCOUNTER 2024-05-23 10:43 | Outpatient (AMB) | payer MEDICARE, SELFPAY ==
[2024-05-23 10:46] VITALS: BP 112/58; PULSE 109; O2SAT 97; BMI 28.2
--- NOTE | 2024-05-23 10:46 | HO.NEPHOV_ITS ---
Vital Signs 05/23/24 10:46 Height 5 ft 6 in Weight 175 lb BMI 28.2 BP 112/58 L Blood Pressure Location Lt brachial Position Sitting Pulse 109 H Pulse Source Pulse Oximeter Pulse Oximetry (%) 97 Oxygen Delivery Method Room Air Intake Visit Reasons: CKD/ Conf Marketing Recruiter Required: No Accompanied by: Self / Same As Patient Allergies shellfish Allergy (Mild, Uncoded 10/05/23 11:36) Unknown Medication List - Last Reconciled 05/23/24 by Fadi Stokes MD albuterol sulfate 90 mcg/actuation 2 puffs inhalation Q4H PRN alendronate 70 mg PO QWEEK amlodipine 5 mg PO DAILY cholecalciferol (vitamin D3) 50 mcg PO DAILY colestipol 1 g PO DAILY PRN dapagliflozin propanediol (Farxiga) 10 mg PO DAILY kyunibvmjsh-enrxizaln-nbusrbyx 200-62.5-25 mcg (Trelegy Ellipta) 1 inh inhalation DAILY losartan 25 mg PO DAILY montelukast 10 mg PO DAILY simvastatin 10 mg PO BEDTIME HPI Comments Details: Elderly woman with a history of longstanding diabetes mellitus with 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 h/o P-ANCA positivity She is here for further follow-up. No specific complaints today. [facility] Family History Mother Diabetes Hypertension H/O kidney removal Social History Alcohol intake: never Patient Tobacco Use Status: Former Tobacco user Physical Exam Vital Signs: Last Vital Signs Pulse 109 H 05/23/24 10:46 Pulse Ox 97 05/23/24 10:46 Oxygen Delivery Method Room Air 05/23/24 10:46 BMI result Body Mass Index 28.2 Comfortable Neck supple no JVD. Lungs entry equal no rales. Heart S1-S2 heard no gallop or rub. Abdomen soft nontender. Neuro alert awake oriented. No asterixis. Extremities no edema. Results Reviewed Nephrology Results: Hgb 11.3 g/dl (12.0-16.0) L 02/01/24 WBC 7.6 X10*3/uL (4.8-10.8) 02/01/24 Plt Count 168 X10*3/uL (160-400) 02/01/24 Sodium 141 mmol/L (135-145) 02/01/24 Potassium 4.8 mmol/L (3.3-5.1) 02/01/24 Chloride 109 mmol/L (96-108) H 02/01/24 Carbon Dioxide 23 mmol/L (22-29) 02/01/24 BUN 31 mg/dL (9-16) H 02/01/24 Creatinine 2.64 mg/dL (0.5-1.4) H 02/01/24 Calcium 9.2 mg/dL (8.4-10.2) 02/01/24 Phosphorus 3.2 mg/dL (2.7-4.5) 10/06/23 PTH Intact 305.9 pg/mL (8.7-77.1) H 02/01/24 Urine Protein 100 (2+) mg/dL (Neg-Trace) H 02/01/24 Urine Creatinine 63.53 mg/dL 02/01/24 Assessment & Plan Assessment & Plan (1) CKD (chronic kidney disease): Code(s): N18.9 - Chronic kidney disease, unspecified Category: Medical (2) Diabetes mellitus: Code(s): E11.9 - Type 2 diabetes mellitus without complications Category: Medical Plan Elderly woman with longstanding diabetes mellitus with CKD 4. 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 At present renal function stable at baseline. Goal is to slow the portion disease Continue to avoid nephrotoxic agents. Optimize blood pressure and maintain blood pressure less than 130/80. Continue with losartan for renal protection. h/o P-ANCA positivity Off Januvia Will benefit from Farxiga ; Agree with titrating the dose. PTH remains elevated add Calcitriol 0.25 Decrease cholecalceferol to 2000 U QOD from QD Watch Ca and PTH Anemia- HgB is stable at 11.1 All questions were answered. Orders: Orders Parathyroid Hormone Intact 2 Months N18.9 - Chronic kidney disease, unspecified Basic Metabolic Panel 2 Months N18.9 - Chronic kidney disease, unspecified Complete Blood Count no Diff 2 Months N18.9 - Chronic kidney disease, unspecified Medications: New calcitriol 0.25 mcg PO DAILY 30 caps 6RF Changed From cholecalciferol (vitamin D3) 50 mcg PO DAILY To cholecalciferol (vitamin D3) 50 mcg PO .QOD Coding Level of Care Code Est Pt Level 4 (45412) Diagnoses CKD (chronic kidney disease) N18.9 Diabetes mellitus E11.9
== END 2024-05-23 11:00 | disposition home or self-care (01) ==
PROVIDERS: PCP Internal Medicine; Visit Provider Internal Medicine Hypertension Specialist
DX: E11.22 Type 2 diabetes mellitus with diabetic chronic kidney disease (principal); N18.4 Chronic kidney disease, stage 4 (severe)
CPT/HCPCS: 99214

== ENCOUNTER → 2024-05-23 10:43 | Outpatient (BNVA) | payer MEDICARE, SELFPAY | PROVIDERS: PCP Internal Medicine; Visit Provider Internal Medicine Hypertension Specialist | DX: E11.22 Type 2 diabetes mellitus with diabetic chronic kidney disease (principal); E11.21 Type 2 diabetes mellitus with diabetic nephropathy; N18.4 Chronic kidney disease, stage 4 (severe) | CPT/HCPCS: 99212 ==

== ENCOUNTER 2024-08-10 11:11 | Outpatient (REF) | payer MEDICARE, SELFPAY ==
--- OUTSIDE RECORDS SUMMARY | 2024-08-10 13:27 | XMS_ITS | Clinical Summary ---
Author Organization [address] Address [address] [place] [address] Phone Care Team Providers Care Receiver Bulk System Name Role Phone Venu Moreira MD Primary Care Provider Encounters Date Type Department Care Team Description 07/04/2024 Lab Requisition [facility] - Main Lab [address] [facility] [place] [address] Gonzalo Aguilar PA Other fatigue; Encounter for screening for diabetes mellitus; Mixed hyperlipidemia; Type 2 diabetes mellitus without complications (CMS/HCC) from Last 3 Months Surgical History Surgery Date Site/Laterality Comments LASER ABLATION OF THE CERVIX PROCEDURE: [place] CAUTERY CERVIX LASER ABLATION Medical History Medical History Date Comments Acquired cyst of kidney 12/31/2006 DX:Acqui red cyst of kidney; COMMENT: CT 12/12: The right renal mass identified on lumbar spine CT is probably a benign cyst containing proteinaceous fluid or hemorrhage. 6-month followup CT with contrast is recommended. There is a second Bosniak category II lesion in the interpolar right kidney posterolaterally which should also be followed up in [address] without and with intravenous c* Retinal detachment with reti nal defect, unspecified DX:Retinal detachment with r etinal defect, unspecified; COMMENT: od Type II or unspecified type diabetes mellitus without mention of complication, not stated as uncontrolled 06/16/2005 DX:Type II or unspecified ty pe diabetes mellitus without mention of complication, not stated as uncontrolled Essential hypertension, benign 06/16/2005 D X:Essential hypertension, benign Essential hypertension, benign 06/16/2005 D X:Essential hypertension, benign DM (diabetes mellitus) type II controlled with renal manifestation (CMS/HCC) 07/31/2010 DX:DM (diabetes mellitus) ty pe II controlled with renal manifestation ([facility]) Family History Medical History Relation Name Comments Diabetes Maternal Grandfather Diabetes Mother Blindness Other cousin Macular degeneration Sister Cataracts Neg Hx Glaucoma Neg Hx Strabismus Neg Hx Relation Name Status Comments Maternal Grandfather Mother Other cousin Alive Sister Social History Tobacco Use Types Packs/Day Years Used Date Smoking Tobacco: Former Cigarettes Q uit: 08/06/2010 Smokeless Tobacco: Never Alcohol Use Standard Drinks/Week Comments No 0 (1 standard drink = 0.6 oz pur e alcohol) Comments Unknown Sex and Gender Information Value Date Recorded Sex Assigned at Not on file Legal Sex Female 8:28 PM EST Gender Identity Not on file Sexual Orientation Not on file Obstetrics History Plan of Treatment Health Maintenance Due Date Last Done Comments Diabetes: Annual Foot Exam 12/20/1953 Diabetes: Annual Retina Eye Exam 12/20/1953 Zoster Vaccines (1 of 2) 12/20/1993 Pneumococcal Vaccine: 50+ Years (2 of 2 - PCV) 04/26/2011 04/26/2010, 05/20/2002 DTaP,Tdap,and Td Vaccines (2 - Td or Tdap) 04/06/2017 04/06/2007 RSV Immunization Patients 60+ Years Old (1 - 1-dose 75+ series) 12/20/2018 Depression Screening 05/10/2022 Falls Risk Assessment 05/10/2022 Medicare Annual Wellness Visit 05/10/2022 Social Influencers of Health Screening 05/10/2022 Diabetes: Annual Urine Albumin-Creatinine Ratio (uACR) 05/24/2022 COVID-19 Vaccine ( season) 2024 Influenza Vaccine (#1) 2024 2, 02/19/2011, 04/26/2010, Additional history exists Diabetes: Blood Sugar Control Test (HGBA1C) 01/01/2025 07/04/2024 Diabetes: Annual GFR (Glomerular Filtration Rate) 07/04/2025 07/04/2024 Hypertension/CHF/CAD Annual BMP Blood Test 07/04/2025 07/04/2024 Cholesterol Screening (Lipid Panel) 07/04/2029 07/04/2024, 07/04/2024 Osteoporosis Screening (Bone Density Screening) 11/23/2031 11/22/2021, 08/10/2019 HIB Vaccines Aged Out No longer eligi ble based on patient's age to complete this topic HPV Vaccines Aged Out No longer eligi ble based on patient's age to complete this topic Hepatitis A Vaccines Aged Out No long er eligible based on patient's age to complete this topic Hepatitis B Vaccines Aged Out No long er eligible based on patient's age to complete this topic IPV Vaccines Aged Out No longer eligi ble based on patient's age to complete this topic MMR Vaccines Aged Out No longer eligi ble based on patient's age to complete this topic Meningococcal ACWY Vaccine Aged Out N o longer eligible based on patient's age to complete this topic Meningococcal B Vacine Aged Out No lo nger eligible based on patient's age to complete this topic RSV Immunization Patients Under 20 months Aged Out No longer eligible based on patient's age to complete this topic Varicella Vaccines Aged Out No longer eligible based on patient's age to complete this topic Procedures Procedure Name Priority Date/Time Associated Diagnosis Comments CBC WITH AUTO DIFFERENTIAL Routine 07/04/2024 12:00 AM EST Other fatigue Encounter for screening for diabetes mellitus Mixed hyperlipidemia Type 2 diabetes mellitus without complications (CMS/HCC) SST - GOLD Routine 07/04/2024 12:00 AM EST Other fatigue Encounter for screening for diabetes mellitus Mixed hyperlipidemia Type 2 diabetes mellitus without complications (CMS/HCC) HEMOGLOBIN A1C Routine 07/04/2024 12:00 AM EST Other fatigue Encounter for screening for diabetes mellitus Mixed hyperlipidemia Type 2 diabetes mellitus without complications (CMS/HCC) CBC AND DIFFERENTIAL Routine 07/04/2024 12:00 AM EST Other fatigue Encounter for screening for diabetes mellitus Mixed hyperlipidemia Type 2 diabetes mellitus without complications (CMS/HCC) LDL CHOLESTEROL, DIRECT Routine 07/04/2024 12:00 AM EST Other fatigue Encounter for screening for diabetes mellitus Mixed hyperlipidemia Type 2 diabetes mellitus without complications (CMS/HCC) LIPID PANEL WITH REFLEX TO DIRECT LDL Routine 07/04/2024 12:00 AM EST Other fatigue Encounter for screening for diabetes mellitus Mixed hyperlipidemia Type 2 diabetes mellitus without complications (CMS/HCC) COMPREHENSIVE METABOLIC PANEL Routine 07/04/2024 12:00 AM EST Other fatigue Encounter for screening for diabetes mellitus Mixed hyperlipidemia Type 2 diabetes mellitus without complications (CMS/HCC) [facility] DEXA AXIAL SKELETON Routine 11/22/2021 10:45 AM EDT Other specified disorders of bone density and structure, multiple sites from Last 3 Months or Most Recently Relevant to Health Maintenance Results * SST tube (07/04/2024 12:00 AM EST) Pathologist [facility] Extra Tube Hold for add-ons. 07/04/2024 8:[address] [facility] Comment:Auto resulted. Blood Venous blood specimen / Unknown 07/04/2024 07/04/2024 6:18 PM EST us Gonzalo [place] LAB BLOOD ORDERABLES Final Res ult [facility] [address] [place] [address], [place] [phone] * (ABNORMAL) Lipid panel with reflex to direct LDL (07/04/2024 12:00 AM EST) [facility] Cholesterol 165 0 - 200 mg/dL LAB CHEMISTRY METHOD 07/04/2024 7:[address] [facility] Triglycerides 346(H) 0 - 150 mg/dL LAB CHEMISTRY METHOD 07/04/2024 7:[address] [facility] HDL 33(L) >=40 mg/dL LAB CHEMISTRY METHOD 07/04/2024 7:[address] [facility] LDL Calculated 63 0 - 100 mg/dL LAB CHEMISTRY METHOD 07/04/2024 7:[address] [facility] VLDL Cholesterol Jose Maria 69.2 mg/dL LAB CHEMISTRY METHOD 07/04/2024 7:[address] [facility] Non HDL Chol. (LDL+VLDL) 132 <145 mg/dL LAB CHEMISTRY METHOD 07/04/2024 7:[address] [facility] Chol/HDL Ratio 5.0(H) 0.0 - 4.4 LAB CHEMISTRY METHOD 07/04/2024 7:[address] [facility] Blood Venous blood specimen / Unknown 07/04/2024 07/04/2024 6:18 PM EST us Gonzalo [place] LAB BLOOD ORDERABLES Final Res ult [facility] [address] [place] [address], [place] [phone] * (ABNORMAL) CBC auto differential (07/04/2024 12:00 AM EST) WBC 8.2 4.8 - 10.8 K/mcL LAB HEMETOLOGY METHOD 07/04/2024 6:[address] [facility] RBC 3.90 3.80 - 4.80 M/mcL LAB HEMETOLOGY METHOD 07/04/2024 6:[address] [facility] Hemoglobin 11.9 11.5 - 16.0 g/dL LAB HEMETOLOGY METHOD 07/04/2024 6:[address] [facility] Hematocrit 37.4 35.0 - 47.0 % LAB HEMETOLOGY METHOD 07/04/2024 6:[address] [facility] MCV 94.9 79.0 - 98.0 FL LAB HEMETOLOGY METHOD 07/04/2024 6:[address] [facility] MCH 30.2 27.0 - 32.0 pcg LAB HEMETOLOGY METHOD 07/04/2024 6:[address] [facility] MCHC 31.8(L) 32.0 - 37.0 g/dL LAB HEMETOLOGY METHOD 07/04/2024 6:[address] [facility] RDW 13.7 11.0 - 15.0 % LAB HEMETOLOGY METHOD 07/04/2024 6:[address] [facility] Platelets 195 130 - 400 K/mcL LAB HEMETOLOGY METHOD 07/04/2024 6:[address] [facility] MPV 11.3(H) 7.0 - 11.0 FL LAB HEMETOLOGY METHOD 07/04/2024 6:[address] [facility] NRBC 0.0 <1.0 % LAB HEMETOLOGY METHOD 07/04/2024 6:[address] [facility] NRBC Absolute 0.00 <0.10 K/mcL LAB HEMETOLOGY METHOD 07/04/2024 6:[address] [facility] Neutrophils Relative 63.4 % LAB HEMETOLOGY METHOD 07/04/2024 6:[address] [facility] Lymphocytes Relative 17.7 % LAB HEMETOLOGY METHOD 07/04/2024 6:[address] [facility] Monocytes Relative 11.7 % LAB HEMETOLOGY METHOD 07/04/2024 6:[address] [facility] Eosinophils Relative 5.8 % LAB HEMETOLOGY METHOD 07/04/2024 6:[address] [facility] Basophils Relative 1.0 % LAB HEMETOLOGY METHOD 07/04/2024 6:[address] [facility] Immature Granulocytes Relative 0.4 % LAB HEMETOLOGY METHOD 07/04/2024 6:[address] [facility] Neutrophils Absolute 5.23 1.50 - 7.00 K/mcL LAB HEMETOLOGY METHOD 07/04/2024 6:[address] [facility] Lymphocytes Absolute 1.46 1.00 - 5.00 K/mcL LAB HEMETOLOGY METHOD 07/04/2024 6:[address] [facility] Monocytes Absolute 0.96 0.20 - 1.00 K/mcL LAB HEMETOLOGY METHOD 07/04/2024 6:58 PM EST [facility] Eosinophils Absolute 0.48 0.00 - 0.50 K/[facility] LAB HEMETOLOGY METHOD 07/04/2024 6:58 PM EST [facility] Basophils Absolute 0.08 0.00 - 0.20 K/[facility] LAB HEMETOLOGY METHOD 07/04/2024 6:58 PM EST [facility] Immature Granulocytes Absolute 0.03 0.00 - 0.03 K/[facility] LAB HEMETOLOGY METHOD 07/04/2024 6:58 PM EST [facility] Blood Venous blood specimen / Unknown 07/04/2024 07/04/2024 6:18 PM EST [facility] [place] LAB BLOOD ORDERABLES Final Res ult Performing Organization Address City/[facility]/ZIP Co de Phone Number [facility] [address] [place] [address], [place] [phone] * LDL cholesterol, direct (07/04/2024 12:00 AM EST) LDL Direct 89 <=100 mg/dL LAB CHEMISTRY METHOD 07/04/2024 7:[address] [facility] Blood Venous blood specimen / Unknown 07/04/2024 07/04/2024 6:18 PM EST [facility] [place] [facility] BLOOD ORDERABLES Final Res ult [facility] [address] [place] [address], [place] [phone] * (ABNORMAL) Hemoglobin A1c (07/04/2024 12:00 AM EST) Hemoglobin A1C 7.0(H) <6.5 % LAB CHEMISTRY METHOD 07/04/2024 9:16 PM EST [facility] Mean Bld Glu Estim. 154 mg/dL LAB CHEMISTRY METHOD 07/04/2024 9:16 PM EST [facility] Blood Venous blood specimen / Unknown 07/04/2024 07/04/2024 6:18 PM EST us [facility] [place] [facility] BLOOD ORDERABLES Final Res ult [facility] [address] [place] [address], [place] [phone] * (ABNORMAL) Comprehensive metabolic panel (07/04/2024 12:00 AM EST) Sodium 138 133 - 145 mmol/L LAB CHEMISTRY METHOD 07/04/2024 7:[address] [facility] Potassium 4.7 3.5 - 5.5 mmol/L LAB CHEMISTRY METHOD 07/04/2024 7:[address] [facility] Chloride 107 96 - 110 mmol/L LAB CHEMISTRY METHOD 07/04/2024 7:[address] [facility] CO2 25 21 - 32 mmol/L LAB CHEMISTRY METHOD 07/04/2024 7:[address] [facility] Anion Gap 6 3 - 11 LAB CHEMISTRY METHOD 07/04/2024 7:[address] [facility] Glucose 184(H) 70 - 100 mg/dL LAB CHEMISTRY METHOD 07/04/2024 7:[address] [facility] BUN 44(H) 5 - 25 mg/dL LAB CHEMISTRY METHOD 07/04/2024 7:[address] [facility] Creatinine 3.32(H) 0.50 - 1.10 mg/dL LAB CHEMISTRY METHOD 07/04/2024 7:[address] [facility] eGFR 14(L) >=60 mL/min/1. 73m2 LAB CHEMISTRY METHOD 07/04/2024 7:[address] [facility] Comment:Calculation based on the??Chronic Kidney Disease Epidemiology Collaboration (CKD-EPI) equation refit??without adjustment for race. BUN/Creatinine Ratio 13.3 LAB CHEMISTRY METHOD 07/04/2024 7:[address] [facility] Calcium 9.9 8.5 - 10.5 mg/dL LAB CHEMISTRY METHOD 07/04/2024 7:[address] [facility] AST (SGOT) 9(L) 10 - 42 unit/L LAB CHEMISTRY METHOD 07/04/2024 7:[address] [facility] ALT (SGPT) 22 10 - 60 unit/L LAB CHEMISTRY METHOD 07/04/2024 7:[address] [facility] Alkaline Phosphatase 70 42 - 121 unit/L LAB CHEMISTRY METHOD 07/04/2024 7:[address] [facility] Total Protein 7.6 6.0 - 8.0 g/dL LAB CHEMISTRY METHOD 07/04/2024 7:[address] [facility] Albumin 4.1 3.2 - 5.0 g/dL LAB CHEMISTRY METHOD 07/04/2024 7:[address] [facility] Total Bilirubin 0.5 0.0 - 1.4 mg/dL LAB CHEMISTRY METHOD 07/04/2024 7:[address] [facility] Blood Venous blood specimen / Unknown 07/04/2024 07/04/2024 6:18 PM EST us Gonzalo [place] [facility] BLOOD ORDERABLES Final Res ult [facility] [address] [place] [address], * EDGARDO DEXA AXIAL SKELETON (11/22/2021 10:45 AM EDT) Anatomical Region Laterality Modality Mammography 11/22/2021 9:50 AM EDT Narrative 11/22/2021 10:45 AM EDT [facility] Diagnostic Imaging Department [address] [place] [address] Patient: ??MADELEINE BATISTA I ?/Age/Sex: 1945 75 - F Unit#: ??[id number] ? Location/Status: ??SPDIMAM/REG CLI ? Mnemonic/Ordering Site: ??MAMDEXAAX/SPMAM Ordering Physician: ??VENU MOREIRA MD [facility] Dexa Axial Skeleton - 11/22/21 - 1013 HISTORY: ??The patient is a 75-year-old postmenopausal female with clinical concern for metabolic bone disease. FINDINGS: ??Dual energy x-ray absorptiometry of the lumbar spine and femurs is performed. The mean bone mineral density at L1-L4 is 0.970 gm/cm2 which is 82% of that of young normals and 95% of that of age matched controls. This yields a T-score of -1.7 and a Z-score of -0.4 which is diagnostic of osteopenia. The mean bone mineral density of the femurs bilaterally is 0.855 gm/cm2 which is 85% of that of young normals and 105% of that of age matched controls. ??This yields a T-score of -1.2 and a Z-score of 0.3 which is diagnostic of osteopenia. The T-score of the right femoral neck is -1.9 and that of the left femoral neck is -2.3 which is diagnostic of osteopenia. IMPRESSION: 1. Osteopenia. ??There has been a decrease of 2.2% in bone mineral density in the lumbar spine since the prior examination of 08/10/2019. ??There has been a decrease of 3.9% in bone mineral density in the right femur and a decrease of 3.3% in bone mineral density in the left femur. 2. FRAX analysis yields a 10-year probability of major osteoporotic fracture of 20.7% and a 10-year probability of hip fracture of 5.2%. Code 23219 Dictating Physician: ??LIANA KIRKLAND MD Electronically Signed by: ??LIANA KIRKLAND MD Dic Date/Time: ??11/22/21 1044 Sign date/Time: ??11/22/21 1045 Procedure Note Liana Kirkland MD - 05/28/2022 [facility] Diagnostic Imaging Department [address] [place], [place] [id number] Patient: MADELEINE BATISTA I /Age/Sex: 1945 - 75 - F Unit#: [id number] [facility]Ordering Site: [facility] Ordering Physician: VENU MOREIRA MD [facility] Dexa Axial Skeleton - 11/22/21 - 1013 HISTORY: The patient is a 75-year-old postmenopausal female withclinical concern for metabolic bone disease. FINDINGS: Dual energy x-ray absorptiometry of the lumbar spine and femursis performed. The mean bone mineral density at L1-L4 is 0.970 gm/cm2 which is82% of that of young normals and 95% of that of age matched controls. Thisyields a T-score of -1.7 and a Z-score of -0.4 which is diagnostic of osteopenia. The mean bone mineral density of the femurs bilaterally is 0.855 gm/hy4nurit is 85% of that of young normals and 105% of that of age matched controls.This yields a T-score of -1.2 and a Z-score of 0.3 which is diagnostic ofosteopenia. The T-score of the right femoral neck is -1.9 and that of the left femoralneck is -2.3 which is diagnostic of osteopenia. IMPRESSION: 1. Osteopenia. There has been a decrease of 2.2% in bone mineral densityin the lumbar spine since the prior examination of 08/10/2019. There has jose decrease of 3.9% in bone mineral density in the right femur and a decreaseof 3.3% in bone mineral density in the left femur. 2. FRAX analysis yields a 10-year probability of major osteoporoticfracture of 20.7% and a 10-year probability of hip fracture of 5.2%. Code 50976 Dictating Physician: LIANA KIRKLAND MD Electronically Signed by: LIANA KIRKLAND MD Dic Date/Time: 11/22/21 1044 Sign date/Time: 11/22/21 104 Venu Moreira MD IM BI PROCEDURES Final Res ult from Last 3 Months or Most Recently Relevant to Health Maintenance Insurance [employer] MEDICARE [facility] [place] [id number] Care Teams Receiver Bulk System Relationship Specialty Start Date End Date Venu Moreira MD [address] [place] [address] PCP - General Internal Medicine 02/17/14
--- OUTSIDE RECORDS SUMMARY | 2024-08-10 13:27 | XMS_ITS | Clinical Summary ---
Author Organization [facility] Address [address] [place] [address] Phone Care Team Providers Care Silica Spray Mixer Name Role Phone Venu Ramos MD Primary Care Provider [phone] Allergies No known active allergies Medications alendronate (FOSAMAX) 70 MG tablet Take 1 tablet (70 mg total) by mouth 1 (one) time each day 90 tablet 3 04/08/2021 Active albuterol HFA (PROVENTIL HFA;VENTOLIN HFA) 108 (90 Base) MCG/ACT inhaler 02/07/2021 Active cholecalciferol (VITAMIN D-3 SUPER STRENGTH) 50 MCG (2000 UT) tablet Take 1 tablet by mouth 1 (one) time each day Active Trelegy Ellipta 200-62.5-25 MCG/INH aerosol powder 03/04/2021 Active montelukast (SINGULAIR) 10 MG tablet Take 1 tablet by mouth 1 (one) time each day Active simvastatin (ZOCOR) 10 MG tablet Take 10 mg by mouth every night 03/06/2021 Active colestipol (COLESTID) 1 g tablet Take 1 g by mouth if needed 05/23/2021 Active glipiZIDE (Glucotrol XL) 5 MG 24 hr tablet Take 1 tablet (5 mg total) by mouth 1 (one) time each day Do not crush, chew, or split. 90 tablet 3 12/30/2021 Active Januvia 100 MG tablet Take 100 mg by mouth 1 (one) time each day 03/25/2022 Active losartan (COZAAR) 25 MG tablet Take 25 mg by mouth 1 (one) time each day 05/06/2022 Active amLODIPine (NORVASC) 5 MG tablet Take 1 tablet (5 mg total) by mouth 1 (one) time each day 90 tablet 03/23/2023 Active Active Problems Problem Noted Date Diagnosed Date Chronic kidney disease 05/15/2021 Hypertensive disorder 05/15/2021 Microalbuminuria 11/19/2011 Overview (07/24/2021): Last elevated on 10/15/2010 Nuclear senile cataract 11/19/2011 Overview (07/24/2021): 2+ nuclear sclerosis bilat as noted from Dr. Rossi exam on 04/18/2011. Type 2 diabetes mellitus 07/31/2010 Postmenopausal osteoporosis 06/21/2008 Acquired cyst of kidney 12/31/2006 Overview (07/24/2021): CT 12/12: The right renal mass identified on lumbar spine CT is probably a benign cyst containing proteinaceous fluid or hemorrhage. 6-month followup CT with contrast is recommended. There is a second Bosniak category II lesion in the interpolar right kidney posterolaterally which should also be followed up in [address] without and with intravenous contrast. Additional clearly benign cysts are visible on CT but apparently not visible on ultrasound. There is a nonobstructing 2 mm calculus in a lower pole calyx in the right kidney. 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 Benign essential hypertension 06/16/2005 Chronic airway obstruction, not elsewhere classi fied 06/16/2005 Overview (07/24/2021): PFT 07/11 FEV11.36, 55% Pure hypercholesterolemia 06/16/2005 Family History Medical History Relation Comments Diabetes Mother Hypertension Mother Kidney disease Mother kidney full of s tones Diabetes Sibling Relation Status Comments Mother Sibling Social History Tobacco Use Types Packs/Day Years Used Date Smoking Tobacco: Former Smokeless Tobacco: Never Tobacco Cessation:Counseling Given: No Alcohol Use Standard Drinks/Week Comments Never 0 (1 standard drink = 0.6 oz pure alcohol) Alcoholic Drinks/day: Occasional social drink Comments Unknown Sex and Gender Information Value Date Recorded Sex Assigned at Not on file Legal Sex Female 4:56 PM EST Gender Identity Not on file Sexual Orientation Not on file Last Filed Vital Signs Vital Sign Reading Time Taken Comments Blood Pressure 119/65 04/03/2023 10:29 AM EDT Pulse 82 04/03/2023 10:29 AM EDT Temperature - - Respiratory Rate - - Oxygen Saturation 99% 03/02/2023 1:50 PM EDT Inhaled Oxygen Concentration - - Weight 81.2 kg (179 lb) 04/03/2023 10:29 AM EDT Height 162.6 cm (5' 4 ) 08/11/2019 12:00 PM EST Body Mass Index 30.73 08/11/2019 12:00 PM EST Plan of Treatment Health Maintenance Due Date Last Done Comments Pneumococcal Vaccine: 65+ Years (3 of 3 - PCV) 04/26/2011 04/26/2010, 05/20/2002 Diabetes: Hemoglobin A1C 05/15/2021 Diabetes: Ophthalmology Exam 05/15/202104/2011, 03/12/2010, 03/07/2009, Additional history exists Diabetes: Pedal Pulse Checked 05/15/2021 Diabetes: Sensory Foot Exam 05/15/2021 Diabetes: Visual Foot Exam 05/15/2021 Influenza Vaccine (#1) 2024 Hepatitis B Vaccine Aged Out No longe r eligible based on patient's age to complete this topic [place] [address] MEDICARE Care Teams Silica Spray Mixer Relationship Specialty Start Date End Date Venu Ramos MD [address] [facility] [address] [place], [place] PCP - General 06/18/20
--- OUTSIDE RECORDS SUMMARY | 2024-08-10 13:27 | XMS_ITS | Encounter Summary ---
Author Organization [facility] Address [address] [place] [address] Care Team Providers Care Blood Bank Laboratory Technician Name Role Phone Venu Ramos MD Primary Care Provider Encounter Details Date Type Department Care Team (Latest Contact Info) Description 07/04/2024 Lab Requisition [facility] - Main Lab [address] [facility] [place] [address] Gonzalo Aguilar PA 299 [facility] [address] [place], [place] [id number] Other fatigue; Encounter for screening for diabetes mellitus; Mixed hyperlipidemia; Type 2 diabetes mellitus without complications (CMS/HCC) Social History Tobacco Use Types Packs/Day Years [...] on file Sexual Orientation Not on file documented as of this encounter Plan of Treatment Not on file documented as of this encounter Procedures Procedure Name Priority Date/Time Associated Diagnosis Comments SST - GOLD Routine 07/04/2024 12:00 AM EST Other fatigue Encounter for screening for diabetes mellitus Mixed hyperlipidemia Type 2 diabetes mellitus without complications (CMS/HCC) LIPID PANEL WITH REFLEX TO DIRECT LDL Routine 07/04/2024 12:00 AM EST Other fatigue Encounter for screening for diabetes mellitus Mixed hyperlipidemia Type 2 diabetes mellitus without complications (CMS/HCC) CBC WITH AUTO DIFFERENTIAL Routine 07/04/2024 12:00 [...] Type 2 diabetes mellitus without complications (CMS/HCC) documented in this encounter Results * (ABNORMAL) CBC auto differential (07/04/2024 12:00 AM EST) [facility] WBC 8.2 4.8 - 10.8 K/mcL LAB HEMETOLOGY METHOD 07/04/2024 6:58 PM [facility] RBC 3.90 3.80 - 4.80 M/mcL LAB HEMETOLOGY METHOD 07/04/2024 6:58 PM [facility] Hemoglobin 11.9 11.5 - 16.0 g/dL LAB HEMETOLOGY METHOD 07/04/2024 6:58 PM [facility] Hematocrit 37.4 35.0 - 47.0 % LAB HEMETOLOGY METHOD 07/04/2024 6:58 PM [facility] MCV 94.9 79.0 - 98.0 FL LAB HEMETOLOGY METHOD 07/04/2024 6:58 PM [facility] MCH 30.2 27.0 - 32.0 pcg LAB HEMETOLOGY METHOD 07/04/2024 6:58 PM [facility] MCHC 31.8(L) 32.0 - 37.0 g/dL LAB HEMETOLOGY METHOD 07/04/2024 6:58 PM [facility] RDW 13.7 11.0 - 15.0 % LAB HEMETOLOGY METHOD 07/04/2024 6:58 PM [facility] Platelets 195 130 - 400 K/mcL LAB HEMETOLOGY METHOD 07/04/2024 6:58 PM [facility] MPV 11.3(H) 7.0 - 11.0 FL LAB HEMETOLOGY METHOD 07/04/2024 6:58 PM [facility] NRBC 0.0 <1.0 % LAB HEMETOLOGY METHOD 07/04/2024 6:58 PM [facility] NRBC Absolute 0.00 <0.10 K/mcL LAB HEMETOLOGY METHOD 07/04/2024 6:58 PM [facility] Neutrophils Relative 63.4 % LAB HEMETOLOGY METHOD 07/04/2024 6:58 PM [facility] Lymphocytes Relative 17.7 % LAB HEMETOLOGY METHOD 07/04/2024 6:58 PM [facility] Monocytes Relative 11.7 % LAB HEMETOLOGY METHOD 07/04/2024 6:58 PM [facility] Eosinophils Relative 5.8 % LAB HEMETOLOGY METHOD 07/04/2024 6:58 PM [facility] Basophils Relative 1.0 % LAB HEMETOLOGY METHOD 07/04/2024 6:58 PM [facility] Immature Granulocytes Relative 0.4 % LAB HEMETOLOGY METHOD 07/04/2024 6:58 PM [facility] Neutrophils Absolute 5.23 1.50 - 7.00 K/mcL LAB HEMETOLOGY METHOD 07/04/2024 6:58 PM [facility] Lymphocytes Absolute 1.46 1.00 - 5.00 K/mcL LAB HEMETOLOGY METHOD 07/04/2024 6:58 PM EST [facility] Monocytes Absolute 0.96 0.20 - 1.00 K/[facility] LAB HEMETOLOGY METHOD 07/04/2024 6:58 PM EST [facility] Eosinophils Absolute 0.48 0.00 - 0.50 K/[facility] LAB HEMETOLOGY METHOD 07/04/2024 6:58 PM EST [facility] Basophils Absolute 0.08 0.00 - 0.20 K/[facility] LAB HEMETOLOGY METHOD 07/04/2024 6:58 PM EST [facility] Immature Granulocytes Absolute 0.03 0.00 - 0.03 K/[facility] LAB HEMETOLOGY METHOD 07/04/2024 6:58 PM EST [facility] Blood Venous blood specimen / Unknown 07/04/2024 07/04/2024 6:18 PM EST Gonzalo [place] LAB BLOOD ORDERABLES Final Res ult [facility] [address] [place] [address], [place] [phone] * SST tube (07/04/2024 12:00 AM EST) Extra Tube Hold for add-ons. 07/04/2024 8:01 PM EST [facility] Comment:Auto resulted. Blood Venous blood specimen / Unknown 07/04/2024 07/04/2024 6:18 PM EST Gonzalo [place] LAB BLOOD ORDERABLES Final Res ult [facility] [address] [place] [address], [place] [phone] * (ABNORMAL) Hemoglobin A1c (07/04/2024 12:00 AM EST) Hemoglobin A1C 7.0(H) <6.5 % LAB CHEMISTRY METHOD 07/04/2024 9:16 PM EST [facility] Mean Bld Glu Estim. 154 mg/dL LAB CHEMISTRY METHOD 07/04/2024 9:16 PM EST [facility] Blood Venous blood specimen / Unknown 07/04/2024 07/04/2024 6:18 PM EST Gonz[place] LAB BLOOD ORDERABLES Final Res ult [facility] [address] [place] [address], [place] [phone] * LDL cholesterol, direct (07/04/2024 12:00 AM EST) Pathologist [facility] [place] LDL Direct 89 <=100 mg/dL LAB CHEMISTRY METHOD 07/04/2024 7:13 PM EST [facility] Blood Venous blood specimen / Unknown 07/04/2024 07/04/2024 6:18 PM EST Gonz[place] LAB BLOOD ORDERABLES Final Res ult [facility] [address] [place] [address], [place] [phone] * (ABNORMAL) Lipid panel with reflex to direct LDL (07/04/2024 12:00 AM EST) Pathologist [facility] [place] Cholesterol 165 0 - 200 mg/dL LAB CHEMISTRY METHOD 07/04/2024 7:14 PM EST [facility] Triglycerides 346(H) 0 - 150 mg/dL LAB CHEMISTRY METHOD 07/04/2024 7:14 PM [facility] HDL 33(L) >=40 mg/dL LAB CHEMISTRY METHOD 07/04/2024 7:14 PM EST [facility] LDL Calculated 63 0 - 100 mg/dL LAB CHEMISTRY METHOD 07/04/2024 7:14 PM [facility] VLDL Cholesterol Jose Maria 69.2 mg/dL LAB CHEMISTRY METHOD 07/04/2024 7:14 PM [facility] Non HDL Chol. (LDL+VLDL) 132 <145 mg/dL LAB CHEMISTRY METHOD 07/04/2024 7:14 PM [facility] Chol/HDL Ratio 5.0(H) 0.0 - 4.4 LAB CHEMISTRY METHOD 07/04/2024 7:14 PM [facility] Blood Venous blood specimen / Unknown 07/04/2024 07/04/2024 6:18 PM EST us Gonzalo [place] LAB BLOOD ORDERABLES Final Res ult [facility] [address] [place] [address], [place] [phone] * (ABNORMAL) Comprehensive metabolic panel (07/04/2024 12:00 AM EST) Sodium 138 133 - 145 mmol/L LAB CHEMISTRY METHOD 07/04/2024 7:13 PM [facility] Potassium 4.7 3.5 - 5.5 mmol/L LAB CHEMISTRY METHOD 07/04/2024 7:13 PM [facility] Chloride 107 96 - 110 mmol/L LAB CHEMISTRY METHOD 07/04/2024 7:13 PM [facility] CO2 25 21 - 32 mmol/L LAB CHEMISTRY METHOD 07/04/2024 7:13 PM [facility] Anion Gap 6 3 - 11 LAB CHEMISTRY METHOD 07/04/2024 7:13 PM [facility] Glucose 184(H) 70 - 100 mg/dL LAB CHEMISTRY METHOD 07/04/2024 7:13 PM [facility] BUN 44(H) 5 - 25 mg/dL LAB CHEMISTRY METHOD 07/04/2024 7:13 PM [facility] Creatinine 3.32(H) 0.50 - 1.10 mg/dL LAB CHEMISTRY METHOD 07/04/2024 7:13 PM [facility] eGFR 14(L) >=60 mL/min/1. 73m2 LAB CHEMISTRY METHOD 07/04/2024 7:13 PM [facility] Comment:Calculation based on the??Chronic Kidney Disease Epidemiology Collaboration (CKD-EPI) equation refit??without adjustment for race. BUN/Creatinine Ratio 13.3 LAB CHEMISTRY METHOD 07/04/2024 7:13 PM [facility] Calcium 9.9 8.5 - 10.5 mg/dL LAB CHEMISTRY METHOD 07/04/2024 7:13 PM [facility] AST (SGOT) 9(L) 10 - 42 unit/L LAB CHEMISTRY METHOD 07/04/2024 7:13 PM [facility] ALT (SGPT) 22 10 - 60 unit/L LAB CHEMISTRY METHOD 07/04/2024 7:13 PM [facility] Alkaline Phosphatase 70 42 - 121 unit/L LAB CHEMISTRY METHOD 07/04/2024 7:13 PM [facility] Total Protein 7.6 6.0 - 8.0 g/dL LAB CHEMISTRY METHOD 07/04/2024 7:13 PM [facility] Albumin 4.1 3.2 - 5.0 g/dL LAB CHEMISTRY METHOD 07/04/2024 7:13 PM [facility] Total Bilirubin 0.5 0.0 - 1.4 mg/dL LAB CHEMISTRY METHOD 07/04/2024 7:13 PM [facility] Blood Venous blood specimen / Unknown 07/04/2024 07/04/2024 6:18 PM EST Gonz[place] LAB BLOOD ORDERABLES Final Res ult [facility] [address] [place] [address], documented in this encounter Visit Diagnoses Diagnosis Other fatigue Encounter for screening for diabetes mellitus Mixed hyperlipidemia Type 2 diabetes mellitus without complications (CMS/HCC) documented in this encounter Care Teams Blood Bank Laboratory Technician Relationship Specialty Start Date End Date Venu Ramos MD [address] PCP - General Internal Medicine 02/17/14 documented as of this encounter
[2024-08-10 13:33] LABS: Hematocrit 33.9 % (37.0-47.0); Mean Corpuscular HGB Conc 32.4 g/dl (31.0-35.0); Mean Corpuscular Hemoglobin 30.1 pg (27.0-33.0); Mean Corpuscular Volume 92.9 fL (80.0-98.0); Mean Platelet Volume 11.3 fL (9.4-12.3); Platelet Count 177 X10*3/uL (160-400); Red Blood Count 3.65 X10*6/uL (4.20-5.50); Red Cell Distribution Width 13.7 % (11.0-16.0); White Blood Count 6.7 X10*3/uL (4.8-10.8)
[2024-08-10 13:38] LABS: Anion Gap 13 (12-20); Blood Urea Nitrogen 40 mg/dL (9-16); Calcium 9.8 mg/dL (8.4-10.2); Carbon Dioxide 23 mmol/L (22-29); Chloride 113 mmol/L (96-108); Estimated Glomerular Filt Rate 16; Glucose Random 185 mg/dL (60-115); Potassium 4.2 mmol/L (3.3-5.1); Sodium 145 mmol/L (135-145)
[2024-08-10 14:25] LABS: Parathyroid Hormone Intact 155.3 pg/mL (8.7-77.1)
== END 2024-08-10 11:12 | disposition home or self-care (01) ==
LOC: HO.10HDL 11:11
PROVIDERS: Visit Provider Internal Medicine Hypertension Specialist
DX: N18.9 Chronic kidney disease, unspecified (principal)
CPT/HCPCS: 36415; 80048; 83970; 85027

== ENCOUNTER 2024-08-15 09:34 | Outpatient (AMB) | payer MEDICARE, SELFPAY ==
[2024-08-15 09:35] VITALS: BP 132/68; PULSE 102; O2SAT 94; BMI 27.6
--- NOTE | 2024-08-15 09:35 | HO.NEPHOV ---
Vital Signs 08/15/24 09:35 Height 5 ft 6 in Weight 171 lb BMI 27.6 BP 132/68 Blood Pressure Location Rt brachial Position Sitting Pulse 102 H Pulse Source Pulse Oximeter Pulse Oximetry (%) 94 Oxygen Delivery Method Room Air Intake Visit Reasons: CKD/ Conf Methods And Procedures Analyst Required: No Accompanied by: Self / Same As Patient Allergies shellfish Allergy (Mild, Uncoded 10/05/23 11:36) Unknown Medication List - Last Reconciled 08/15/24 by Fadi Stokes MD albuterol sulfate 90 mcg/actuation 2 puffs inhalation Q4H PRN alendronate 70 mg PO QWEEK amlodipine 5 mg PO DAILY calcitriol 0.25 mcg PO DAILY cholecalciferol (vitamin D3) 50 mcg PO .QOD colestipol 1 g PO DAILY PRN dapagliflozin propanediol (Farxiga) 10 mg PO DAILY cdzuytjzrxr-hrlwlmwij-xcxohjjy 200-62.5-25 mcg (Trelegy Ellipta) 1 inh inhalation DAILY losartan 25 mg PO DAILY montelukast 10 mg PO DAILY simvastatin 10 mg PO BEDTIME HPI Comments Details: Elderly woman with a history of longstanding diabetes mellitus with 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 h/o P-ANCA positivity She is here for further follow-up. No specific complaints today. 08/15/24 Sha loose stools - on Cholestepol and it helps She stopped Farxiga- Too expensive ( about $400 for 3 months) PFSH Family History Mother Diabetes Hypertension H/O kidney removal Social History Alcohol intake: never Patient Tobacco Use Status: Former Tobacco user Physical Exam Vital Signs: Last Vital Signs Pulse 102 H 08/15/24 09:35 BP 132/68 08/15/24 09:35 Pulse Ox 94 08/15/24 09:35 Oxygen Delivery Method Room Air 08/15/24 09:35 BMI result Body Mass Index 27.6 Comfortable Neck supple no JVD. Lungs entry equal no rales. Heart S1-S2 heard no gallop or rub. Abdomen soft nontender. Neuro alert awake oriented. No asterixis. Extremities no edema. Results Reviewed Nephrology Results: Hgb 11.0 g/dl (12.0-16.0) L 08/10/24 WBC 6.7 X10*3/uL (4.8-10.8) 08/10/24 Plt Count 177 X10*3/uL (160-400) 08/10/24 Sodium 145 mmol/L (135-145) 08/10/24 Potassium 4.2 mmol/L (3.3-5.1) 08/10/24 Chloride 113 mmol/L (96-108) H 08/10/24 Carbon Dioxide 23 mmol/L (22-29) 08/10/24 BUN 40 mg/dL (9-16) H 08/10/24 Creatinine 2.77 mg/dL (0.5-1.4) H 08/10/24 Calcium 9.8 mg/dL (8.4-10.2) 08/10/24 Phosphorus 3.2 mg/dL (2.7-4.5) 10/06/23 PTH Intact 155.3 pg/mL (8.7-77.1) H 08/10/24 Urine Protein 100 (2+) mg/dL (Neg-Trace) H 02/01/24 Urine Creatinine 63.53 mg/dL 02/01/24 Assessment & Plan Assessment & Plan (1) CKD (chronic kidney disease): Code(s): N18.9 - Chronic kidney disease, unspecified Category: Medical (2) Diabetes mellitus: Code(s): E11.9 - Type 2 diabetes mellitus without complications Category: Medical Plan Elderly woman with longstanding diabetes mellitus with CKD 4. 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 At present renal function stable at baseline. Goal is to slow the portion disease Continue to avoid nephrotoxic agents. Optimize blood pressure and maintain blood pressure less than 130/80. Continue with losartan for renal protection. h/o P-ANCA positivity Off Januvia Will benefit from Farxiga ; Unable to to take due to cost ! PTH remains elevated added Calcitriol 0.25 Decreased cholecalceferol 2000 U QOD from QD Repeat PTH is 153 - down from 308 Watch Ca and PTH Anemia- HgB is stable at 11.0 and stable All questions were answered. Orders: Orders Basic Metabolic Panel 4 Months N18.9 - Chronic kidney disease, unspecified Hemoglobin A1c 4 Months N18.9 - Chronic kidney disease, unspecified Parathyroid Hormone Intact 4 Months N18.9 - Chronic kidney disease, unspecified Complete Blood Count no Diff 4 Months N18.9 - Chronic kidney disease, unspecified Coding Level of Care Code Est Pt Level 4 (37906) Diagnoses CKD (chronic kidney disease) N18.9 Diabetes mellitus E11.9
--- OUTSIDE RECORDS SUMMARY | 2024-08-15 10:22 | XMS_ITS | Encounter Summary ---
Author Organization [facility] Address [address] [place] [address] Care Team Providers Care Community Representative Name Role Phone Venu Ramos MD Primary Care Provider Encounter Details Date Type Department Care Team (Latest Contact Info) Description 07/04/2024 Lab Requisition [facility] - Main Lab [address] [facility] [place] [address] Gonzalo Aguilar PA [address] [facility] [address] [place], [place] [id number] Other fatigue; Encounter for screening for diabetes [...] CBC auto differential (07/04/2024 12:00 AM EST) [facility] WBC 8.2 4.8 - 10.8 K/mcL LAB HEMETOLOGY METHOD 07/04/2024 6:58 PM [facility] RBC 3.90 3.80 - 4.80 M/mcL LAB HEMETOLOGY METHOD 07/04/2024 6:58 PM [facility] Hemoglobin 11.9 11.5 - 16.0 g/dL LAB HEMETOLOGY METHOD 07/04/2024 6:58 PM [facility] Hematocrit 37.4 35.0 - 47.0 % LAB HEMETOLOGY METHOD 07/04/2024 6:58 PM [facility] MCV 94.9 79.0 - 98.0 FL LAB HEMETOLOGY METHOD 07/04/2024 6:58 PM [facility] MCH 30.2 27.0 - 32.0 pcg LAB HEMETOLOGY METHOD 07/04/2024 6:58 PM [facility] MCHC 31.8(L) 32.0 - 37.0 g/dL LAB HEMETOLOGY METHOD 07/04/2024 6:58 PM [facility] RDW 13.7 11.0 - 15.0 % LAB HEMETOLOGY METHOD 07/04/2024 6:58 PM [facility] Platelets 195 130 - 400 K/mcL LAB HEMETOLOGY METHOD 07/04/2024 6:58 PM [facility] MPV 11.3(H) 7.0 - 11.0 FL LAB HEMETOLOGY METHOD 07/04/2024 6:58 PM [facility] NRBC 0.0 <1.0 % LAB HEMETOLOGY METHOD 07/04/2024 6:58 PM [facility] NRBC Absolute 0.00 <0.10 K/mcL LAB HEMETOLOGY METHOD 07/04/2024 6:58 PM [facility] Neutrophils Relative 63.4 % LAB HEMETOLOGY METHOD 07/04/2024 6:58 PM [facility] Lymphocytes Relative 17.7 % LAB HEMETOLOGY METHOD 07/04/2024 6:58 PM [facility] Monocytes Relative 11.7 % LAB HEMETOLOGY METHOD 07/04/2024 6:58 PM [facility] Eosinophils Relative 5.8 % LAB HEMETOLOGY METHOD 07/04/2024 6:58 PM [facility] Basophils Relative 1.0 % LAB HEMETOLOGY METHOD 07/04/2024 6:58 PM [facility] Immature Granulocytes Relative 0.4 % LAB HEMETOLOGY METHOD 07/04/2024 6:58 PM [facility] Neutrophils Absolute 5.23 1.50 - 7.00 K/mcL LAB HEMETOLOGY METHOD 07/04/2024 6:58 PM [facility] Lymphocytes Absolute 1.46 1.00 - 5.00 K/mcL LAB HEMETOLOGY METHOD 07/04/2024 6:58 PM EST [facility] Monocytes Absolute 0.96 0.20 - 1.00 K/[facility] LAB HEMETOLOGY METHOD 07/04/2024 6:58 PM EST [facility] Eosinophils Absolute 0.48 0.00 - 0.50 K/[facility] LAB HEMETOLOGY METHOD 07/04/2024 6:58 PM EST [facility] Basophils Absolute 0.08 0.00 - 0.20 K/[facility] LAB HEMETOLOGY METHOD 07/04/2024 6:58 PM EST [facility] Immature Granulocytes Absolute 0.03 0.00 - 0.03 K/[facility] LAB HEMETOLOGY METHOD 07/04/2024 6:58 PM EST [facility] Blood Venous blood specimen / Unknown 07/04/2024 07/04/2024 6:18 PM EST Gonzalo [place] LAB BLOOD ORDERABLES Final Res ult [facility] [address] [place] [address], [place] [phone] * SST tube (07/04/2024 12:00 AM EST) Extra Tube Hold for add-ons. 07/04/2024 8:01 PM EST [facility] Comment:Auto resulted. Blood Venous blood specimen / Unknown 07/04/2024 07/04/2024 6:18 PM EST [place] LAB BLOOD ORDERABLES Final Res ult [facility] [address] [place] [address], [place] [phone] * (ABNORMAL) Hemoglobin A1c (07/04/2024 12:00 AM EST) Hemoglobin A1C 7.0(H) <6.5 % LAB CHEMISTRY METHOD 07/04/2024 9:16 PM EST [facility] Mean Bld Glu Estim. 154 mg/dL LAB CHEMISTRY METHOD 07/04/2024 9:16 PM EST [facility] Blood Venous blood specimen / Unknown 07/04/2024 07/04/2024 6:18 PM EST [place] LAB BLOOD ORDERABLES Final Res ult [facility] [address] [place] [address], [place] [phone] * LDL cholesterol, direct (07/04/2024 12:00 AM EST) Pathologist [facility] LDL Direct 89 <=100 mg/dL LAB CHEMISTRY METHOD 07/04/2024 7:13 PM EST [facility] Blood Venous blood specimen / Unknown 07/04/2024 07/04/2024 6:18 PM EST Gonz[place] LAB BLOOD ORDERABLES Final Res ult [facility] [address] [place] [address], [place] [phone] * (ABNORMAL) Lipid panel with reflex to direct LDL (07/04/2024 12:00 AM EST) Pathologist [facility] Cholesterol 165 0 - 200 mg/dL LAB CHEMISTRY METHOD 07/04/2024 7:14 PM EST [facility] Triglycerides 346(H) 0 - 150 mg/dL LAB CHEMISTRY METHOD 07/04/2024 7:14 PM [facility] HDL 33(L) >=40 mg/dL LAB CHEMISTRY METHOD 07/04/2024 7:14 PM EST [facility] LDL Calculated 63 0 - 100 mg/dL LAB CHEMISTRY METHOD 07/04/2024 7:14 PM [facility] VLDL Cholesterol Jose Maria 69.2 mg/dL LAB CHEMISTRY METHOD 07/04/2024 7:14 PM [facility] Non HDL Chol. (LDL+VLDL) 132 <145 mg/dL LAB CHEMISTRY METHOD 07/04/2024 7:14 PM [facility] Chol/HDL Ratio 5.0(H) 0.0 - 4.4 LAB CHEMISTRY METHOD 07/04/2024 7:14 PM [facility] Blood Venous blood specimen / Unknown 07/04/2024 07/04/2024 6:18 PM EST us Gonzalo [place] LAB BLOOD ORDERABLES Final Res ult [facility] [address] [place] [address], [place] [phone] * (ABNORMAL) Comprehensive metabolic panel (07/04/2024 12:00 AM EST) Sodium 138 133 - 145 mmol/L LAB CHEMISTRY METHOD 07/04/2024 7:13 PM [facility] Potassium 4.7 3.5 - 5.5 mmol/L LAB CHEMISTRY METHOD 07/04/2024 7:13 PM [facility] Chloride 107 96 - 110 mmol/L LAB CHEMISTRY METHOD 07/04/2024 7:13 PM [facility] CO2 25 21 - 32 mmol/L LAB CHEMISTRY METHOD 07/04/2024 7:13 PM [facility] Anion Gap 6 3 - 11 LAB CHEMISTRY METHOD 07/04/2024 7:13 PM [facility] Glucose 184(H) 70 - 100 mg/dL LAB CHEMISTRY METHOD 07/04/2024 7:13 PM [facility] BUN 44(H) 5 - 25 mg/dL LAB CHEMISTRY METHOD 07/04/2024 7:13 PM [facility] Creatinine 3.32(H) 0.50 - 1.10 mg/dL LAB CHEMISTRY METHOD 07/04/2024 7:13 PM [facility] eGFR 14(L) >=60 mL/min/1. 73m2 LAB CHEMISTRY METHOD 07/04/2024 7:13 PM [facility] Comment:Calculation based on the??Chronic Kidney Disease Epidemiology Collaboration (CKD-EPI) equation refit??without adjustment for race. BUN/Creatinine Ratio 13.3 LAB CHEMISTRY METHOD 07/04/2024 7:13 PM [facility] Calcium 9.9 8.5 - 10.5 mg/dL LAB CHEMISTRY METHOD 07/04/2024 7:13 PM [facility] AST (SGOT) 9(L) 10 - 42 unit/L LAB CHEMISTRY METHOD 07/04/2024 7:13 PM [facility] ALT (SGPT) 22 10 - 60 unit/L LAB CHEMISTRY METHOD 07/04/2024 7:13 PM [facility] Alkaline Phosphatase 70 42 - 121 unit/L LAB CHEMISTRY METHOD 07/04/2024 7:13 PM [facility] Total Protein 7.6 6.0 - 8.0 g/dL LAB CHEMISTRY METHOD 07/04/2024 7:13 PM [facility] Albumin 4.1 3.2 - 5.0 g/dL LAB CHEMISTRY METHOD 07/04/2024 7:13 PM [facility] Total Bilirubin 0.5 0.0 - 1.4 mg/dL LAB CHEMISTRY METHOD 07/04/2024 7:13 PM [facility] Blood Venous blood specimen / Unknown 07/04/2024 07/04/2024 6:18 PM EST [place] LAB BLOOD ORDERABLES Final Res ult [facility] [address] [place] [address], documented in this encounter Visit Diagnoses Diagnosis Other fatigue Encounter for screening for diabetes mellitus Mixed hyperlipidemia Type 2 diabetes mellitus without complications (CMS/HCC) documented in this encounter Care Teams Community Representative Relationship Specialty Start Date End Date Venu Ramos MD [address] PCP - General Internal Medicine 02/17/14 documented as of this encounter
--- OUTSIDE RECORDS SUMMARY | 2024-08-15 10:22 | XMS_ITS | Clinical Summary ---
Author Organization [address] Address [address] [place] [address] Phone Care Team Providers Care Office Agent Name Role Phone Venu Moreira MD Primary Care Provider [phone] Encounters Date Type Department Care Team Description 07/04/2024 Lab Requisition [facility] - Main Lab [address] [facility] [place] [address] Gonzalo Aguilar PA Other fatigue; Encounter for screening for diabetes mellitus; Mixed hyperlipidemia; Type 2 diabetes mellitus without complications (CMS/HCC) from Last 3 Months Surgical History Surgery Date Site/Laterality Comments LASER ABLATION OF THE CERVIX PROCEDURE: [place] CAUTERY CERVIX LASER ABLATION Medical History Medical [...] 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) Family History Medical History Relation Name Comments [...] Type 2 diabetes mellitus without complications (CMS/HCC) [facility] DEXA AXIAL SKELETON Routine 11/22/2021 10:45 AM EDT Other specified disorders of bone density and structure, multiple sites from Last 3 Months or Most Recently Relevant to Health Maintenance Results * SST tube (07/04/2024 12:00 AM EST) Pathologist [facility] Extra Tube Hold for add-ons. 07/04/2024 8:01 PM [facility] Comment:Auto resulted. Blood Venous blood specimen / Unknown 07/04/2024 07/04/2024 6:18 PM EST us Gonzalo CANADA LAB BLOOD ORDERABLES Final Res ult [facility] [address] [place] [address], [place] [phone] * (ABNORMAL) Lipid panel with reflex to direct LDL (07/04/2024 12:00 AM EST) [facility] Cholesterol 165 0 - 200 mg/dL LAB CHEMISTRY METHOD 07/04/2024 7:14 PM [facility] Triglycerides 346(H) 0 - 150 mg/dL LAB CHEMISTRY METHOD 07/04/2024 7:14 PM [facility] HDL 33(L) >=40 mg/dL LAB CHEMISTRY METHOD 07/04/2024 7:14 PM [facility] LDL Calculated 63 0 - 100 mg/dL LAB CHEMISTRY METHOD 07/04/2024 7:14 PM [facility] VLDL Cholesterol Jose Maria 69.2 mg/dL LAB CHEMISTRY METHOD 07/04/2024 7:14 PM [facility] Non HDL Chol. (LDL+VLDL) 132 <145 mg/dL LAB CHEMISTRY METHOD 07/04/2024 7:14 PM [facility] Chol/HDL Ratio 5.0(H) 0.0 - 4.4 LAB CHEMISTRY METHOD 07/04/2024 7:14 PM [facility] Blood Venous blood specimen / Unknown 07/04/2024 07/04/2024 6:18 PM EST us Gonzalo [place] LAB BLOOD ORDERABLES Final Res ult [facility] [address] [place] [address], [place] [phone] * (ABNORMAL) CBC auto differential (07/04/2024 12:00 AM EST) WBC 8.2 4.8 - 10.8 K/mcL LAB HEMETOLOGY METHOD 07/04/2024 6:58 PM [facility] RBC 3.90 3.80 - 4.80 M/mcL LAB HEMETOLOGY METHOD 07/04/2024 6:58 PM [facility] Hemoglobin 11.9 11.5 - 16.0 g/dL LAB HEMETOLOGY METHOD 07/04/2024 6:58 PM [facility] Hematocrit 37.4 35.0 - 47.0 % LAB HEMETOLOGY METHOD 07/04/2024 6:58 PM [facility] MCV 94.9 79.0 - 98.0 FL LAB HEMETOLOGY METHOD 07/04/2024 6:58 PM [facility] MCH 30.2 27.0 - 32.0 pcg LAB HEMETOLOGY METHOD 07/04/2024 6:58 PM [facility] MCHC 31.8(L) 32.0 - 37.0 g/dL LAB HEMETOLOGY METHOD 07/04/2024 6:58 PM [facility] RDW 13.7 11.0 - 15.0 % LAB HEMETOLOGY METHOD 07/04/2024 6:58 PM [facility] Platelets 195 130 - 400 K/mcL LAB HEMETOLOGY METHOD 07/04/2024 6:58 PM [facility] MPV 11.3(H) 7.0 - 11.0 FL LAB HEMETOLOGY METHOD 07/04/2024 6:58 PM [facility] NRBC 0.0 <1.0 % LAB HEMETOLOGY METHOD 07/04/2024 6:58 PM [facility] NRBC Absolute 0.00 <0.10 K/mcL LAB HEMETOLOGY METHOD 07/04/2024 6:58 PM [facility] Neutrophils Relative 63.4 % LAB HEMETOLOGY METHOD 07/04/2024 6:58 PM [facility] Lymphocytes Relative 17.7 % LAB HEMETOLOGY METHOD 07/04/2024 6:58 PM [facility] Monocytes Relative 11.7 % LAB HEMETOLOGY METHOD 07/04/2024 6:58 PM [facility] Eosinophils Relative 5.8 % LAB HEMETOLOGY METHOD 07/04/2024 6:58 PM [facility] Basophils Relative 1.0 % LAB HEMETOLOGY METHOD 07/04/2024 6:58 PM [facility] Immature Granulocytes Relative 0.4 % LAB HEMETOLOGY METHOD 07/04/2024 6:58 PM [facility] Neutrophils Absolute 5.23 1.50 - 7.00 K/mcL LAB HEMETOLOGY METHOD 07/04/2024 6:58 PM [facility] Lymphocytes Absolute 1.46 1.00 - 5.00 K/mcL LAB HEMETOLOGY METHOD 07/04/2024 6:58 PM [facility] Monocytes Absolute 0.96 0.20 - 1.00 K/mcL LAB HEMETOLOGY METHOD 07/04/2024 6:58 PM EST [facility] Eosinophils Absolute 0.48 0.00 - 0.50 K/[facility] LAB HEMETOLOGY METHOD 07/04/2024 6:58 PM EST [facility] Basophils Absolute 0.08 0.00 - 0.20 K/[facility] LAB HEMETOLOGY METHOD 07/04/2024 6:58 PM EST [facility] Immature Granulocytes Absolute 0.03 0.00 - 0.03 K/[facility] LAB HEMETOLOGY METHOD 07/04/2024 6:58 PM EST [facility] Blood Venous blood specimen / Unknown 07/04/2024 07/04/2024 6:18 PM EST Gonzalo CANA[place] LAB BLOOD ORDERABLES Final Res ult Performing Organization Address City/[facility]/ZIP Co de Phone Number [facility] [address] [place] [address], [place] [phone] * LDL cholesterol, direct (07/04/2024 12:00 AM EST) LDL Direct 89 <=100 mg/dL LAB CHEMISTRY METHOD 07/04/2024 7:13 PM [facility] Blood Venous blood specimen / Unknown 07/04/2024 07/04/2024 6:18 PM EST Gonzalo [place] LAB BLOOD ORDERABLES Final Res ult [facility] [address] [place] [address], [place] [phone] * (ABNORMAL) Hemoglobin A1c (07/04/2024 12:00 AM EST) Hemoglobin A1C 7.0(H) <6.5 % LAB CHEMISTRY METHOD 07/04/2024 9:16 PM EST [facility] Mean Bld Glu Estim. 154 mg/dL LAB CHEMISTRY METHOD 07/04/2024 9:16 PM EST [facility] Blood Venous blood specimen / Unknown 07/04/2024 07/04/2024 6:18 PM EST us Gonzalo [place] LAB BLOOD ORDERABLES Final Res ult [facility] [address] [place] [address], [place] [phone] * (ABNORMAL) Comprehensive metabolic panel (07/04/2024 12:00 AM EST) Sodium 138 133 - 145 mmol/L LAB CHEMISTRY METHOD 07/04/2024 7:13 PM [facility] Potassium 4.7 3.5 - 5.5 mmol/L LAB CHEMISTRY METHOD 07/04/2024 7:13 PM [facility] Chloride 107 96 - 110 mmol/L LAB CHEMISTRY METHOD 07/04/2024 7:13 PM [facility] CO2 25 21 - 32 mmol/L LAB CHEMISTRY METHOD 07/04/2024 7:13 PM [facility] Anion Gap 6 3 - 11 LAB CHEMISTRY METHOD 07/04/2024 7:13 PM [facility] Glucose 184(H) 70 - 100 mg/dL LAB CHEMISTRY METHOD 07/04/2024 7:13 PM [facility] BUN 44(H) 5 - 25 mg/dL LAB CHEMISTRY METHOD 07/04/2024 7:13 PM [facility] Creatinine 3.32(H) 0.50 - 1.10 mg/dL LAB CHEMISTRY METHOD 07/04/2024 7:13 PM [facility] eGFR 14(L) >=60 mL/min/1. 73m2 LAB CHEMISTRY METHOD 07/04/2024 7:13 PM [facility] Comment:Calculation based on the??Chronic Kidney Disease Epidemiology Collaboration (CKD-EPI) equation refit??without adjustment for race. BUN/Creatinine Ratio 13.3 LAB CHEMISTRY METHOD 07/04/2024 7:13 PM [facility] Calcium 9.9 8.5 - 10.5 mg/dL LAB CHEMISTRY METHOD 07/04/2024 7:13 PM [facility] AST (SGOT) 9(L) 10 - 42 unit/L LAB CHEMISTRY METHOD 07/04/2024 7:13 PM [facility] ALT (SGPT) 22 10 - 60 unit/L LAB CHEMISTRY METHOD 07/04/2024 7:13 PM [facility] Alkaline Phosphatase 70 42 - 121 unit/L LAB CHEMISTRY METHOD 07/04/2024 7:13 PM [facility] Total Protein 7.6 6.0 - 8.0 g/dL LAB CHEMISTRY METHOD 07/04/2024 7:13 PM [facility] Albumin 4.1 3.2 - 5.0 g/dL LAB CHEMISTRY METHOD 07/04/2024 7:13 PM [facility] Total Bilirubin 0.5 0.0 - 1.4 mg/dL LAB CHEMISTRY METHOD 07/04/2024 7:13 PM [facility] Blood Venous blood specimen / Unknown 07/04/2024 07/04/2024 6:18 PM EST us Gonzalo [place] LAB BLOOD ORDERABLES Final Res ult [facility] [address] [place] [address], * EDGARDO DEXA AXIAL SKELETON (11/22/2021 10:45 AM EDT) Anatomical Region Laterality Modality Mammography 11/22/2021 9:50 AM EDT Narrative 11/22/2021 10:45 AM EDT [facility] Diagnostic Imaging Department [address] [place] [address] Patient: ??MADELEINE BATISTA I ?/Age/Sex: 1945 75 - F Unit#: ??[id number] ? Location/Status: ??SPDIMAM/REG CLI ? Mnemonic/Ordering Site: ??MAMDEXAAX/SPMAM Ordering Physician: ??VENU MOREIRA MD [facility] Dexa Axial Skeleton - 11/22/21 [...] probability of hip fracture of 5.2%. Code 99355 Dictating Physician: ??LIANA KIRKLAND MD Electronically Signed by: ??LIANA KIRKLAND MD Dic Date/Time: ??11/22/21 1044 Sign date/Time: ??11/22/21 1045 Procedure Note Liana Kirkland MD - 05/28/2022 [facility] Diagnostic Imaging Department [address] [place], [place] [id number] Patient: MADELEINE BATISTA I /Age/Sex: 1945 - 75 - F Unit#: [id number] [facility] Ordering Physician: VENU MOREIRA MD [facility] Dexa Axial Skeleton - 11/22/21 [...] density of the femurs bilaterally is 0.855 gm/ru7vytvd is 85% of that of young normals [...] probability of hip fracture of 5.2%. Code 57412 Dictating Physician: LIANA KIRKLAND MD Electronically Signed by: LIANA KIRKLAND MD Dic Date/Time: 11/22/21 1044 Sign date/Time: 11/22/21 104 Venu Moreira MD IM BI PROCEDURES Final Res ult from Last 3 Months or Most Recently Relevant to Health Maintenance Insurance [employer]ICARE [facility] [place] [id number] Care Teams Office Agent Relationship Specialty Start Date End Date Venu Moreira MD [address] [place] [address] PCP - General Internal Medicine 02/17/14
--- OUTSIDE RECORDS SUMMARY | 2024-08-15 10:22 | XMS_ITS | Clinical Summary ---
Author Organization [facility] Address [address] [place] [address] Phone Care Team Providers Care Contact Lens Polisher Name Role Phone Venu Ramos MD Primary Care Provider [phone] Allergies No known active allergies Medications alendronate [...] age to complete this topic Insurance MEDICARE MEDICARE Care Teams Contact Lens Polisher Relationship Specialty Start Date End Date Venu Ramos MD [address] [facility] [address] [place], [place] PCP - General 06/18/20
== END 2024-08-15 09:50 | disposition home or self-care (01) ==
PROVIDERS: PCP Internal Medicine; Visit Provider Internal Medicine Hypertension Specialist
DX: N18.9 Chronic kidney disease, unspecified (principal); E11.9 Type 2 diabetes mellitus without complications
CPT/HCPCS: 99214

== ENCOUNTER → 2024-08-15 09:34 | Outpatient (BNVA) | payer MEDICARE, SELFPAY | PROVIDERS: PCP Internal Medicine; Visit Provider Internal Medicine Hypertension Specialist | DX: E11.22 Type 2 diabetes mellitus with diabetic chronic kidney disease (principal); N18.9 Chronic kidney disease, unspecified | CPT/HCPCS: 99212 ==

== ENCOUNTER 2024-12-07 12:42 | Outpatient (REF) | payer MEDICARE, SELFPAY ==
--- OUTSIDE RECORDS SUMMARY | 2024-12-07 13:12 | XMS_ITS | Encounter Summary ---
Author Organization [facility] Address [address] [place] [address] Care Team Providers Care Linux Server Engineer Name Role Phone Venu Ramos MD Primary Care Provider Encounter Details Date Type Department Care Team (Latest Contact Info) Description 10/04/2024 Lab Requisition [facility] - Main Lab 299 [facility] [place] [address] Gonzalo Aguilar PA 299 [facility] [address] [place], [place] [id number] Essential (primary) hypertension; Type 2 diabetes mellitus without complications (CMS/HCC V24, CMS/HCC V28) Social History Tobacco Use Types Packs/Day Years [...] Procedure Name Priority Date/Time Associated Diagnosis Comments URINALYSIS MICROSCOPIC ONLY Routine 10/04/2024 12:00 AM EDT Essential (primary) hypertension Type 2 diabetes mellitus without complications (CMS/HCC V24, CMS/HCC V28) THYROID STIMULATING HORMONE WITH REFLEX TO FREE T4 AND FREE T3 Routine 10/04/2024 12:00 AM EDT Essential (primary) hypertension Type 2 diabetes mellitus without complications (CMS/HCC V24, CMS/HCC V28) SST - GOLD Routine 10/04/2024 12:00 AM EDT Essential (primary) hypertension Type 2 diabetes mellitus without complications (CMS/HCC V24, CMS/HCC V28) LIPID PANEL WITH REFLEX TO DIRECT LDL Routine 10/04/2024 12:00 AM EDT Essential (primary) hypertension Type 2 diabetes mellitus without complications (CMS/HCC V24, CMS/HCC V28) URINALYSIS MICROSCOPIC ONLY Routine 10/04/2024 12:00 AM EDT Essential (primary) hypertension Type 2 diabetes mellitus without complications (CMS/HCC V24, CMS/HCC V28) CBC WITH AUTO DIFFERENTIAL Routine 10/04/2024 12:00 AM EDT Essential (primary) hypertension Type 2 diabetes mellitus without complications (CMS/HCC V24, CMS/HCC V28) CBC AND DIFFERENTIAL Routine 10/04/2024 12:00 AM EDT Essential (primary) hypertension Type 2 diabetes mellitus without complications (CMS/HCC V24, CMS/HCC V28) C-REACTIVE PROTEIN Routine 10/04/2024 12 :00 AM EDT Essential (primary) hypertension Type 2 diabetes mellitus without complications (CMS/HCC V24, CMS/HCC V28) THYROXINE FREE Routine 10/04/2024 12:00 AM EDT Essential (primary) hypertension Type 2 diabetes mellitus without complications (CMS/HCC V24, CMS/HCC V28) MAGNESIUM Routine 10/04/2024 12:00 AM EDT Essential (primary) hypertension Type 2 diabetes mellitus without complications (CMS/HCC V24, CMS/HCC V28) HEMOGLOBIN A1C Routine 10/04/2024 12:00 AM EDT Essential (primary) hypertension Type 2 diabetes mellitus without complications (CMS/HCC V24, CMS/HCC V28) COMPREHENSIVE METABOLIC PANEL Routine 10/04/2024 12:00 AM EDT Essential (primary) hypertension Type 2 diabetes mellitus without complications (CMS/HCC V24, CMS/HCC V28) documented in this encounter Results * Thyroxine free (10/04/2024 12:00 AM EDT) Free T4 1.10 0.70 - 1.80 ng/dL LAB CHEMISTRY METHOD 10/05/2024 9:41 AM EDT [facility] Blood Venous blood specimen / Unknown 10/04/2024 10/04/2024 7:03 PM EDT Gonzalo CANADA LAB BLOOD ORDERABLES Final Res ult [facility] [address] [place] [address], [place] [phone] * SST tube (10/04/2024 12:00 AM EDT) [facility] Extra Tube Hold for add-ons. 10/04/2024 9:01 PM EDT [facility] Comment:Auto resulted. Blood Venous blood specimen / Unknown 10/04/2024 10/04/2024 7:03 PM EDT Gonzalo CANADA LAB BLOOD ORDERABLES Final Res ult [facility] [address] [place] [address], [place] [phone] * (ABNORMAL) Urinalysis microscopic only (10/04/2024 12:00 AM EDT) [facility] RBC, Urine 2.9 0 - 4 /HPF LAB URINALYSIS - AUTOMATED METHOD 10/04/2024 8:38 PM EDT [facility] WBC, Urine 20.8(H) 0 - 4 /HPF LAB URINALYSIS - AUTOMATED METHOD 10/04/2024 8:38 PM EDT [facility] Squamous Epithelial, Urine 38 0 - 60 /LPF LAB URINALYSIS - AUTOMATED METHOD 10/04/2024 8:38 PM EDT [facility] Bacteria, Urine Negative Negative /HPF LAB URINALYSIS - AUTOMATED METHOD 10/04/2024 8:38 PM EDT [facility] Hyaline Casts, Urine 2.8 0 - 3 /LPF LAB URINALYSIS - AUTOMATED METHOD 10/04/2024 8:38 PM EDT [facility] Urine Urine specimen obtained by clean catch procedure / Unknown 10/04/2024 10/04/2024 7:03 PM EDT us Gonzalo CANADA LAB URINE ORDERABLES Final Res ult [facility] [address] [place] [address], [place] [phone] * (ABNORMAL) CBC auto differential (10/04/2024 12:00 AM EDT) WBC 7.0 4.8 - 10.8 K/mcL LAB [facility]EMETOLOG[facility] RBC 3.90 3.80 - 4.80 M/mcL LAB HEMETOLOGY METHOD 10/04/2024 8:05 PM [facility] Hemoglobin 11.9 11.5 - 16.0 g/dL LAB HEMETOLOGY METHOD 10/04/2024 8:05 PM EDT [facility] Hematocrit 37.9 35.0 - 47.0 % LAB HEMETOLOGY METHOD [facility]/04[facility]2024 [facility] MCV 97.4 79.0 - 98.0 FL LAB HEMETOLOGY METHOD 10/04/2024 8:05 PM [facility] MCH 30.6 27.0 - 32.0 pcg LAB HEMETOLOGY METHOD 10/04/2024 8[facility] MCHC 31.4(L) 32.0 - 37.0 g/dL LAB HEMETOLOGY METHOD 10/04/2024 8:05 PM [facility] RDW 13.8 11.0 - 15.0 % LAB HEMETOLOGY METHOD 10/04/2024 8:05 PM [facility] Platelets 194 130 - 400 K/mcL LAB HEMETOLOGY METHOD 10/04/2024 8:05 PM [facility] MPV 11.4(H) 7.0 - 11.0 FL LAB HEMETOLOGY METHOD 10/04/2024 8:05 PM [facility] NRBC 0.0 <1.0 % LAB HEMETOLOGY METHOD 10/04/2024 8:05 PM [facility] NRBC Absolute 0.00 <0.10 K/mcL LAB HEMETOLOGY METHOD 10/04/2024 8:05 PM [facility] Neutrophils Relative 58.4 % LAB HEMETOLOGY METHOD 10/04/2024 8:05 PM [facility] Lymphocytes Relative 26.4 % LAB HEMETOLOGY METHOD 10/04/2024 8:05 PM [facility] Monocytes Relative 8.0 % LAB HEMETOLOGY METHOD 10/04/2024 8:05 PM [facility] Eosinophils Relative 5.7 % LAB HEMETOLOGY METHOD 10/04/2024 8:05 PM [facility] Basophils Relative 1.1 % LAB HEMETOLOGY METHOD 10/04/2024 8:05 PM [facility] Immature Granulocytes Relative 0.4 % LAB HEMETOLOGY METHOD 10/04/2024 8:05 PM [facility] Neutrophils Absolute 4.08 1.50 - 7.00 K/mcL LAB HEMETOLOGY METHOD 10/04/2024 8:05 PM EDT [facility] Lymphocytes Absolute 1.85 1.00 - 5.00 K/mcL LAB HEMETOLOGY METHOD 10/04/2024 8:05 PM EDT [facility] Monocytes Absolute 0.56 0.20 - 1.00 K/mcL LAB HEMETOLOGY METHOD 10/04/2024 8:05 PM EDT [facility] Eosinophils Absolute 0.40 0.00 - 0.50 K/[facility] LAB HEMETOLOGY METHOD 10/04/2024 8:05 PM EDT [facility] Basophils Absolute 0.08 0.00 - 0.20 K/mcL LAB HEMETOLOGY METHOD 10/04/2024 8:05 PM EDT [facility] Immature Granulocytes Absolute 0.03 0.00 - 0.03 K/mcL LAB HEMETOLOGY METHOD 10/04/2024 8:05 PM EDT [facility] Blood Venous blood specimen / Unknown 10/04/2024 10/04/2024 7:03 PM EDT Gonzalo CANA[place] LAB BLOOD ORDERABLES Final Res ult [facility] [address] [place] [address], * Magnesium (10/04/2024 12:00 AM EDT) Magnesium 2.2 1.9 - 2.6 mg/dL LAB CHEMISTRY METHOD 10/04/2024 8:11 PM EDT [facility] Blood Venous blood specimen / Unknown 10/04/2024 10/04/2024 7:03 PM EDT Gonzalo [place] LAB BLOOD ORDERABLES Final Res ult [facility] [address] [place] [address], [place] [phone] * (ABNORMAL) Hemoglobin A1c (10/04/2024 12:00 AM EDT) [facility] Hemoglobin A1C 6.7(H) <6.5 % LAB CHEMISTRY METHOD 10/05/2024 12:47 PM EDT [facility] Mean Bld Glu Estim. 146 mg/dL LAB CHEMISTRY METHOD 10/05/2024 12:47 PM EDT [facility] Blood Venous blood specimen / Unknown 10/04/2024 10/04/2024 7:03 PM EDT us Gonzalo CANADA LAB BLOOD ORDERABLES Final Res ult [facility] [address] [place] [address], * Thyroid stimulating hormone with reflex to free t4 and free t3 (10/04/2024 12:00 AM EDT) [facility] TSH 1.01 0.40 - 4.00 mcIU/mL LAB CHEMISTRY METHOD 10/04/2024 9:03 PM EDT [facility] Blood Venous blood specimen / Unknown 10/04/2024 10/04/2024 7:03 PM EDT us Gonzalo CANA[place] LAB BLOOD ORDERABLES Final Res ult [facility] [address] [place] [address], [place] [phone] * C-reactive protein (10/04/2024 12:00 AM EDT) [facility] C-Reactive Protein <0.29 <=0.50 mg/dL LAB CHEMISTRY METHOD 10/04/2024 8:11 PM EDT [facility] Blood Venous blood specimen / Unknown 10/04/2024 10/04/2024 7:03 PM EDT Gonzalo CANADA LAB BLOOD ORDERABLES Final Res ult [facility] [address] [place] [address], [place] [phone] * (ABNORMAL) Lipid panel with reflex to direct LDL (10/04/2024 12:00 AM EDT) Cholesterol 148 0 - 200 mg/dL LAB CHEMISTRY METHOD 10/04/2024 8:15 PM EDT [facility] Triglycerides 252(H) 0 - 150 mg/dL LAB CHEMISTRY METHOD 10/04/2024 8:15 PM EDT [facility] HDL 35(L) >=40 mg/dL LAB CHEMISTRY METHOD 10/04/2024 8:15 PM EDT [facility] LDL Calculated 63 0 - 100 mg/dL LAB CHEMISTRY METHOD 10/04/2024 8:15 PM EDT [facility] VLDL Cholesterol Jose Maria 50.4 mg/dL LAB CHEMISTRY METHOD 10/04/2024 8:15 PM EDT [facility] Non HDL Chol. (LDL+VLDL) 113 <145 mg/dL LAB CHEMISTRY METHOD 10/04/2024 8:15 PM EDT [facility] Chol/HDL Ratio 4.2 0.0 - 4.4 LAB CHEMISTRY METHOD 10/04/2024 8:15 PM EDT [facility] Blood Venous blood specimen / Unknown 10/04/2024 10/04/2024 7:03 PM EDT us Gonzalo CANADA LAB BLOOD ORDERABLES Final Res ult Performing Organization Address City/[facility]/ZIP Co de Phone Number [facility] [address] [place] [address], [place] [phone] * (ABNORMAL) Comprehensive metabolic panel (10/04/2024 12:00 AM EDT) Sodium 140 133 - 145 mmol/L LAB CHEMISTRY METHOD 10/04/2024 8:15 PM [facility] Potassium 4.2 3.5 - 5.5 mmol/L LAB CHEMISTRY METHOD 10/04/2024 8:15 PM [facility] Chloride 113(H) 96 - 110 mmol/L LAB CHEMISTRY METHOD 10/04/2024 8:15 PM [facility] CO2 21 21 - 32 mmol/L LAB CHEMISTRY METHOD 10/04/2024 8:15 PM [facility] Anion Gap 6 3 - 11 LAB CHEMISTRY METHOD 10/04/2024 8:15 PM [facility] Glucose 106(H) 70 - 100 mg/dL LAB CHEMISTRY METHOD 10/04/2024 8:15 PM [facility] BUN 40(H) 5 - 25 mg/dL LAB CHEMISTRY METHOD 10/04/2024 8:15 PM [facility] Creatinine 3.15(H) 0.50 - 1.10 mg/dL LAB CHEMISTRY METHOD 10/04/2024 8:15 PM [facility] eGFR 14(L) >=60 mL/min/1. 73m2 LAB CHEMISTRY METHOD 10/04/2024 8:15 PM [facility] Comment:Calculation based on the Chronic Kidney Disease Epidemiology Collaboration (CKD-EPI) equation refit without adjustment for race. BUN/Creatinine Ratio 12.7 LAB CHEMISTRY METHOD 10/04/2024 8:15 PM [facility] Calcium 9.1 8.5 - 10.5 mg/dL LAB CHEMISTRY METHOD 10/04/2024 8:15 PM [facility] AST (SGOT) 13 10 - 42 unit/L LAB CHEMISTRY METHOD 10/04/2024 8:15 PM [facility] ALT (SGPT) 22 10 - 60 unit/L LAB CHEMISTRY METHOD 10/04/2024 8:15 PM EDT [facility] Alkaline Phosphatase 71 42 - 121 unit/L LAB CHEMISTRY METHOD 10/04/2024 8:15 PM EDT [facility] Total Protein 7.7 6.0 - 8.0 g/dL LAB CHEMISTRY METHOD 10/04/2024 8:15 PM EDT [facility] Albumin 4.2 3.2 - 5.0 g/dL LAB CHEMISTRY METHOD 10/04/2024 8:15 PM EDT [facility] Total Bilirubin 0.6 0.0 - 1.4 mg/dL LAB CHEMISTRY METHOD 10/04/2024 8:15 PM EDT [facility] Blood Venous blood specimen / Unknown 10/04/2024 10/04/2024 7:03 PM EDT us Gonzalo [place]NA[place] LAB BLOOD ORDERABLES Final Res ult [facility] [address] [place] [address], documented in this encounter Visit Diagnoses Diagnosis Essential (primary) hypertension Unspecified essential hypertension Type 2 diabetes mellitus without complications (CMS/HCC V24, CMS/HCC V28) documented in this encounter Care Teams Linux Server Engineer Relationship Specialty Start Date End Date Venu Ramos MD [address] PCP - General Internal Medicine 02/17/14 documented as of this encounter
--- OUTSIDE RECORDS SUMMARY | 2024-12-07 13:12 | XMS_ITS | Patient Health Record ---
Author Organization [facility] [place] Address [address] [facility] [address] [place] [address] Care Team Providers Care Retention Specialist Name Role Phone Gonzalo Aguilar Unavailable [phone] Migration, Provider Unavailable Unavailable Reason For Referral No Information Encounters Encounter Location Date Provider Diagnosis [facility] [place] [address] [facility] [address] [place] [phone] 01/11/2024 Provider Migration [facility] [place] 299 [facility] [address] [place] [phone] 02/15/2024 Provider Migration [facility] [place] 299 [facility] [address] [place] [phone] 04/04/2024 Provider Migration [facility] [place] [address] [facility] [address] [place] [phone] 05/02/2024 Provider Migration [facility] [place] 299 [facility] [address] [place] [phone] 05/23/2024 Provider Migration [facility] [place] [address] [facility] [address] [place] [phone] 06/13/2024 Provider Migration [facility] [place] [address] [phone] 07/04/2024 Gonzalo Aguilar [facility] [place] [address] [facility] [address] [place] [phone] 07/04/2024 Provider Migration [facility] [place] 299 [facility] [address] [place] [phone] 10/04/2024 Gonzalo Aguilar Plan Of Treatment Next Appt Details Provider Name:Gonzalo Aguilar , 01/03/2025 11:45:00 AM, [address], Suite [facility], [place], [address], [phone] Insurance Providers Payer Name Payer Address Payer Phone Subscriber Number Group Number Insured Name Patient Relationship to Insured Coverage Start Date Coverage End Date [facility] Medicare Plan [address] [address] [place] [id number] LYNNENovember Self - patient is the insured
--- OUTSIDE RECORDS SUMMARY | 2024-12-07 13:12 | XMS_ITS | Clinical Summary ---
Author Organization [facility] Address [address] [place] [address] Phone Care Team Providers Care Distribution Systems Serviceperson Name Role Phone Venu Ramos MD Primary Care Provider [phone] Allergies No known active allergies Medications alendronate [...] Due Date Last Done Comments Pneumococcal Vaccine: 50+ Years (3 of 3 - PCV) 04/26/2011 04/26/2010, 05/20/2002 Diabetes: Hemoglobin A1C 05/15/2021 Diabetes: Ophthalmology Exam 05/15/2021 04/18/2011, 03/12/2010, 03/07/2009, Additional history exists Diabetes: Pedal Pulse Checked 05/15/2021 Diabetes: Sensory Foot Exam 05/15/2021 Diabetes: Visual Foot Exam 05/15/2021 Influenza Vaccine (Season Ended) 2025 Pneumococcal Vaccine: Peds (0 to 5 Years) and At-Risk Patients (6 to 49 Years) Discontinued 04/26/2010, 05/20/2002 Hepatitis B Vaccine Aged Out No longe r eligible based on patient's age to complete this topic Insurance Medicare [facility] Medicare Care Teams Distribution Systems Serviceperson Relationship Specialty Start Date End Date Venu Ramos MD [address] [place] [address] [address] [place] [address] PCP - General 06/18/20
[2024-12-07 13:46] LABS: Hematocrit 35.3 % (37.0-47.0); Hemoglobin 11.2 g/dl (12.0-16.0); Mean Corpuscular HGB Conc 31.7 g/dl (31.0-35.0); Mean Corpuscular Hemoglobin 29.5 pg (27.0-33.0); Mean Corpuscular Volume 92.9 fL (80.0-98.0); NRBC Abs Auto 0.000 X10*3/uL (0.0-0.012); NRBC Pct Auto 0.0 /100WBC (0.0-0.2); Platelet Count 204 X10*3/uL (160-400); Red Blood Count 3.80 X10*6/uL (4.20-5.50); White Blood Count 8.3 X10*3/uL (4.8-10.8)
[2024-12-07 14:03] LABS: Hemoglobin A1C 142.3536 umol/L; Total Hemoglobin (HGBA1C) 2988.5206 umol/L
[2024-12-07 14:19] LABS: Parathyroid Hormone Intact 84.7 pg/mL (8.7-77.1)
[2024-12-07 14:20] LABS: Anion Gap 12 (12-20); Blood Urea Nitrogen 44 mg/dL (9-16); Calcium 9.6 mg/dL (8.4-10.2); Carbon Dioxide 23 mmol/L (22-29); Chloride 112 mmol/L (96-108); Estimated Glomerular Filt Rate 15; Potassium 5.1 mmol/L (3.3-5.1); Sodium 142 mmol/L (135-145)
== END 2024-12-07 12:43 | disposition home or self-care (01) ==
LOC: HO.LAB 12:42
PROVIDERS: PCP Internal Medicine; Visit Provider Internal Medicine Hypertension Specialist
DX: Z13.1 Encounter for screening for diabetes mellitus (principal); N18.9 Chronic kidney disease, unspecified
CPT/HCPCS: 36415; 80048; 83036; 83970; 85027

== ENCOUNTER 2024-12-08 12:14 | Outpatient (AMB) | payer MEDICARE, SELFPAY ==
--- NOTE | 2024-12-08 12:16 | HO.NEPHOV ---
Vital Signs 12/08/24 12:17 Height 5 ft 6 in Weight 167 lb BMI 27.0 BP 110/60 Blood Pressure Location Lt brachial Position Sitting Pulse 101 H Pulse Source Pulse Oximeter Pulse Oximetry (%) 94 Oxygen Delivery Method Room Air Intake Visit Reasons: December-Conf Match Up Worker Required: No Accompanied by: Self / Same As Patient Allergies shellfish Allergy (Mild, Uncoded 10/05/23 11:36) Unknown Medication List - Last Reconciled 12/08/24 by Fadi Stokes MD albuterol sulfate 90 mcg/actuation 2 puffs inhalation Q4H PRN alendronate 70 mg PO QWEEK amlodipine 5 mg PO DAILY calcitriol 0.25 mcg PO DAILY cholecalciferol (vitamin D3) 50 mcg PO .QOD colestipol 1 g PO DAILY PRN dapagliflozin propanediol (Farxiga) 10 mg PO DAILY efzwdxfmxqr-oqpcmcalx-pixuejpm 200-62.5-25 mcg (Trelegy Ellipta) 1 inh inhalation DAILY losartan 25 mg PO DAILY montelukast 10 mg PO DAILY simvastatin 10 mg PO BEDTIME HPI Comments Details: Elderly woman with a history of longstanding diabetes mellitus with 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 h/o P-ANCA positivity She is here for further follow-up. No specific complaints today. 08/15/24 Sha loose stools - on Cholestepol and it helps She stopped Farxiga- Too expensive ( about $400 for 3 months) 12/08/24 The patient is an 78-year-old female presenting with chronic kidney disease. Her kidney function is currently stable at 15-17%, which has been consistent over recent evaluations. She has been advised to maintain hydration and monitor her kidney function regularly. The patient also has a history of asthma, which is managed with her current medication regimen. She reports no recent exacerbations and denies any significant respiratory symptoms. Additionally, the patient experiences occasional hyperglycemia, though she does not monitor her blood sugar levels daily. She has been advised to keep her blood sugar under control to prevent complications. [facility] Family History Mother Diabetes Hypertension H/O kidney removal Social History Alcohol intake: never Patient Tobacco Use Status: Former Tobacco user Physical Exam Vital Signs: Last Vital Signs Pulse 101 H 12/08/24 12:17 BP 110/60 12/08/24 12:17 Pulse Ox 94 12/08/24 12:17 Oxygen Delivery Method Room Air 12/08/24 12:17 BMI result Body Mass Index 27.0 Comfortable Neck supple no JVD. Lungs entry equal no rales. Heart S1-S2 heard no gallop or rub. Abdomen soft nontender. Neuro alert awake oriented. No asterixis. Extremities no edema. Results Reviewed Nephrology Results: Hgb, (12.0-16.0) 11.2 g/dl L 12/07/24 WBC, (4.8-10.8) 8.3 X10*3/uL 12/07/24 Plt Count, (160-400) 204 X10*3/uL 12/07/24 Sodium, (135-145) 142 mmol/L 12/07/24 Potassium, (3.3-5.1) 5.1 mmol/L Δ 12/07/24 Chloride, (96-108) 112 mmol/L H 12/07/24 Carbon Dioxide, (22-29) 23 mmol/L 12/07/24 BUN, (9-16) 44 mg/dL H 12/07/24 Creatinine, (0.5-1.4) 2.98 mg/dL H 12/07/24 Calcium, (8.4-10.2) 9.6 mg/dL 12/07/24 Phosphorus, (2.7-4.5) 3.2 mg/dL 10/06/23 PTH Intact, (8.7-77.1) 84.7 pg/mL H 12/07/24 Urine Protein, (Neg-Trace) 100 (2+) mg/dL H 02/01/24 Urine Creatinine 63.53 mg/dL 02/01/24 Assessment & Plan Assessment & Plan (1) CKD (chronic kidney disease): Code(s): N18.9 - Chronic kidney disease, unspecified Category: Medical (2) Diabetes mellitus: Code(s): E11.9 - Type 2 diabetes mellitus without complications Category: Medical Plan Elderly woman with longstanding diabetes mellitus with CKD 4. 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 At present renal function stable at baseline. Goal is to slow the portion disease Continue to avoid nephrotoxic agents. Optimize blood pressure and maintain blood pressure less than 130/80. Continue with losartan for renal protection. h/o P-ANCA positivity Off Januvia On SGLT2 inhi PTH remains elevated On Calcitriol 0.25 Decreased cholecalceferol 2000 U QOD from QD Repeat PTH is 86, down from 153 - down from 308 Watch Ca and PTH Anemia- HgB is stable at 11.2 and stable No indication for KAZ All questions were answered. Discussed possible need for dialysis in the near future. Will refer for education Orders: Orders Basic Metabolic Panel 3 Months N18.9 - Chronic kidney disease, unspecified Parathyroid Hormone Intact 3 Months N18.9 - Chronic kidney disease, unspecified Phosphorus 3 Months N18.9 - Chronic kidney disease, unspecified Complete Blood Count no Diff 3 Months N18.9 - Chronic kidney disease, unspecified Coding Level of Care Code Est Pt Level 4 (88586) Diagnoses CKD (chronic kidney disease) N18.9 Diabetes mellitus E11.9
[2024-12-08 12:17] VITALS: BP 110/60; PULSE 101; O2SAT 94; BMI 27.0
--- OUTSIDE RECORDS SUMMARY | 2024-12-08 12:38 | XMS_ITS | Clinical Summary ---
Author Organization [facility] Address [address] [place] [address] Phone Care Team Providers Care Statement Clerks Supervisor Name Role Phone Venu Ramos MD Primary Care Provider [phone] Allergies No known active allergies Medications alendronate [...] age to complete this topic Insurance Medicare [place] Medicare Care Teams Statement Clerks Supervisor Relationship Specialty Start Date End Date Venu Ramos MD [address] [place] [address] [place] [address] PCP - General 06/18/20
--- OUTSIDE RECORDS SUMMARY | 2024-12-08 12:38 | XMS_ITS | Patient Health Record ---
Author Organization [facility] [place] Address [address] [facility] [address] [place] [address] Care Team Providers Care Director Child Name Role Phone Gonzalo Aguilar Unavailable [phone] Migration, Provider Unavailable Unavailable Reason For Referral No Information Encounters Encounter Location Date Provider Diagnosis [facility] [place] [address] [facility] [address] [place] [phone] 01/11/2024 Provider Migration [facility] [place] [address] [facility] [address] [place] [phone] 02/15/2024 Provider Migration [facility] [place] [address] [facility] [address] [place] [phone] 04/04/2024 Provider Migration [facility] [place] [address] [facility] [address] [place] [phone] 05/02/2024 Provider Migration [facility] [place] [address] [facility] [address] [place] [phone] 05/23/2024 Provider Migration [facility] [place] [address] [facility] [address] [place] [phone] 06/13/2024 Provider Migration [facility] [place] [address] [address] 07/04/2024 Gonzalo Aguilar [facility] [place] [address] [facility] [address] [place] [phone] 07/04/2024 Provider Migration [facility] [place] [address] [facility] [address] [place] [phone] 10/04/2024 Gonzalo Aguilar Plan Of Treatment Next Appt Details Provider Name:Gonzalo Aguilar , 01/03/2025 11:45:00 AM, [address], Suite [facility], [place], [address], [phone] Insurance Providers Payer Name Payer Address Payer Phone Subscriber Number Group Number Insured Name Patient Relationship to Insured Coverage Start Date Coverage End Date [facility] Medicare Plan [address] [address] [place] [id number] LYNNENovember Self - patient is the insured
--- OUTSIDE RECORDS SUMMARY | 2024-12-08 12:38 | XMS_ITS | Encounter Summary ---
Author Organization [employer] Address [address] [place] [address] Care Team Providers Care Paper Bundler Name Role Phone Venu Ramos MD Primary Care Provider Encounter Details Date Type Department Care Team (Latest Contact Info) Description 10/04/2024 Lab Requisition [facility] - Main Lab [address] [facility] [place] [address] Gonzalo Aguilar PA [address] [facility] [address] [place], [place] [id number] Essential (primary) hypertension; Type 2 diabetes mellitus [...] LAB CHEMISTRY METHOD 10/05/2024 9:41 AM EDT [facility] Blood Venous blood specimen / Unknown 10/04/2024 10/04/2024 7:03 PM EDT Gonzalo [place] LAB BLOOD ORDERABLES Final Res ult [facility] [address] [place] [address], [place] [phone] * SST tube (10/04/2024 12:00 AM EDT) [facility] Extra Tube Hold for add-ons. 10/04/2024 9:01 PM EDT [facility] Comment:Auto resulted. Blood Venous blood specimen / Unknown 10/04/2024 10/04/2024 7:03 PM EDT Gonzalo [place] LAB BLOOD ORDERABLES Final Res ult [facility] [address] [place] [address], [place] [phone] * (ABNORMAL) Urinalysis microscopic only (10/04/2024 12:00 AM EDT) [facility] RBC, Urine 2.9 0 - 4 /HPF LAB URINALYSIS - AUTOMATED METHOD 10/04/2024 8:38 PM EDT [facility] WBC, Urine 20.8(H) 0 - 4 /HPF LAB URINALYSIS - AUTOMATED METHOD 10/04/2024 8:38 PM EDT [facility] Squamous Epithelial, Urine 38 0 - 60 /LPF LAB URINALYSIS - AUTOMATED METHOD 10/04/2024 8:38 PM EDT [facility] Bacteria, Urine Negative Negative /HPF LAB URINALYSIS - AUTOMATED METHOD 10/04/2024 8:38 PM EDT [facility] Hyaline Casts, Urine 2.8 0 - 3 /LPF LAB URINALYSIS - AUTOMATED METHOD 10/04/2024 8:38 PM EDT [facility] Urine Urine specimen obtained by clean catch procedure / Unknown 10/04/2024 10/04/2024 7:03 PM EDT us Gonzalo [place] LAB URINE ORDERABLES Final Res ult [facility] [address] [place] [address], [place] [phone] * (ABNORMAL) CBC auto differential (10/04/2024 12:00 AM EDT) WBC 7.0 4.8 - 10.8 K/mcL LAB HEMETOLOGY [facility] RBC 3.90 3.80 - 4.80 M/mcL LAB HEMETOLOGY METHOD 10/04/2024 8:05 PM [facility] Hemoglobin 11.9 11.5 - 16.0 g/dL LAB HEMETOLOGY METHOD 10/04/2024 8:05 PM EDT [facility] Hematocrit 37.9 35.0 - 47.0 % LAB HEMETOLOGY METHOD 10/04/2024 8:[facility] MCV 97.4 79.0 - 98.0 FL LAB HEMETOLOGY METHOD 10/04/2024 8:05 PM [facility] MCH 30.6 27.0 - 32.0 pcg LAB HEMETOLOGY METHOD 10/04[facility]2024 8[facility] MCHC 31.4(L) 32.0 - 37.0 g/dL LAB HEMETOLOGY METHOD 10/04/2024 8:05 PM [facility] RDW 13.8 11.0 - 15.0 % LAB HEMETOLOGY METHOD 10/04/2024 8:05 PM [facility] Platelets 194 130 - 400 K/mcL LAB HEMETOLOGY METHOD 10/04/2024 8:05 PM [facility] MPV 11.4(H) 7.0 - 11.0 FL LAB HEMETOLOGY METHOD 10/04/2024 8:05 PM [facility] NRBC 0.0 <1.0 % LAB HEMETOLOGY METHOD 10/04/2024 8:05 PM [facility] NRBC Absolute 0.00 <0.10 K/mcL LAB HEMETOLOGY METHOD 10/04/2024 8:05 PM [facility] Neutrophils Relative 58.4 % LAB HEMETOLOGY METHOD 10/04/2024 8:05 PM [facility] Lymphocytes Relative 26.4 % LAB HEMETOLOGY METHOD 10/04/2024 8:05 PM [facility] Monocytes Relative 8.0 % LAB HEMETOLOGY METHOD 10/04/2024 8:05 PM [facility] Eosinophils Relative 5.7 % LAB HEMETOLOGY METHOD 10/04/2024 8:05 PM [facility] Basophils Relative 1.1 % LAB HEMETOLOGY METHOD 10/04/2024 8:05 PM [facility] Immature Granulocytes Relative 0.4 % LAB HEMETOLOGY METHOD 10/04/2024 8:05 PM [facility] Neutrophils Absolute 4.08 1.50 - 7.00 K/mcL LAB HEMETOLOGY METHOD 10/04/2024 8:05 PM EDT [facility] Lymphocytes Absolute 1.85 1.00 - 5.00 K/mcL LAB HEMETOLOGY METHOD 10/04/2024 8:05 PM EDT [facility] Monocytes Absolute 0.56 0.20 - 1.00 K/mcL LAB HEMETOLOGY METHOD 10/04/2024 8:05 PM EDT [facility] Eosinophils Absolute 0.40 0.00 - 0.50 K/[facility] LAB HEMETOLOGY METHOD 10/04/2024 8:05 PM EDT [facility] Basophils Absolute 0.08 0.00 - 0.20 K/mcL LAB HEMETOLOGY METHOD 10/04/2024 8:05 PM EDT [facility] Immature Granulocytes Absolute 0.03 0.00 - 0.03 K/mcL LAB HEMETOLOGY METHOD 10/04/2024 8:05 PM EDT [facility] Blood Venous blood specimen / Unknown 10/04/2024 10/04/2024 7:03 PM EDT Gonzalo [place] LAB BLOOD ORDERABLES Final Res ult [facility] [address] [place] [address], * Magnesium (10/04/2024 12:00 AM EDT) Magnesium 2.2 1.9 - 2.6 mg/dL LAB CHEMISTRY METHOD 10/04/2024 8:11 PM EDT [facility] Blood Venous blood specimen / Unknown 10/04/2024 10/04/2024 7:03 PM EDT Gonzalo [place] LAB BLOOD ORDERABLES Final Res ult [facility] [address] [place] [address], [place] [phone] * (ABNORMAL) Hemoglobin A1c (10/04/2024 12:00 AM EDT) [facility] Hemoglobin A1C 6.7(H) <6.5 % LAB CHEMISTRY METHOD 10/05/2024 12:47 PM EDT [facility] Mean Bld Glu Estim. 146 mg/dL LAB CHEMISTRY METHOD 10/05/2024 12:47 PM EDT [facility] Blood Venous blood specimen / Unknown 10/04/2024 10/04/2024 7:03 PM EDT us Gonzalo [place] LAB BLOOD ORDERABLES Final Res ult [facility] [address] [place] [address], * Thyroid stimulating hormone with reflex to free t4 and free t3 (10/04/2024 12:00 AM EDT) [facility] TSH 1.01 0.40 - 4.00 mcIU/mL LAB CHEMISTRY METHOD 10/04/2024 9:03 PM EDT [facility] Blood Venous blood specimen / Unknown 10/04/2024 10/04/2024 7:03 PM EDT us Gonzalo [place] LAB BLOOD ORDERABLES Final Res ult [facility] [address] [place] [address], [place] [phone] * C-reactive protein (10/04/2024 12:00 AM EDT) [facility] C-Reactive Protein <0.29 <=0.50 mg/dL LAB CHEMISTRY METHOD 10/04/2024 8:11 PM EDT [facility] Blood Venous blood specimen / Unknown 10/04/2024 10/04/2024 7:03 PM EDT Gonzalo [place] LAB BLOOD ORDERABLES Final Res ult [facility] [address] [place] [address], [place] [phone] * (ABNORMAL) Lipid panel with reflex to direct LDL (10/04/2024 12:00 AM EDT) Cholesterol 148 0 - 200 mg/dL LAB CHEMISTRY METHOD 10/04/2024 8:15 PM EDT [facility] Triglycerides 252(H) 0 - 150 mg/dL LAB CHEMISTRY METHOD 10/04/2024 8:15 PM EDT [facility] HDL 35(L) >=40 mg/dL LAB CHEMISTRY METHOD 10/04/2024 8:15 PM EDT [facility] LDL Calculated 63 0 - 100 mg/dL LAB CHEMISTRY METHOD 10/04/2024 8:15 PM EDT [facility] VLDL Cholesterol Jose Maria 50.4 mg/dL LAB CHEMISTRY METHOD 10/04/2024 8:15 PM EDT [facility] Non HDL Chol. (LDL+VLDL) 113 <145 mg/dL LAB CHEMISTRY METHOD 10/04/2024 8:15 PM EDT [facility] Chol/HDL Ratio 4.2 0.0 - 4.4 LAB CHEMISTRY METHOD 10/04/2024 8:15 PM EDT [facility] Blood Venous blood specimen / Unknown 10/04/2024 10/04/2024 7:03 PM EDT us Gonzalo [place] LAB BLOOD ORDERABLES Final Res ult Performing Organization Address City/[facility]/ZIP Co de Phone Number [facility] [address] [place] [address], [place] [phone] * (ABNORMAL) Comprehensive metabolic panel (10/04/2024 12:00 AM EDT) Sodium 140 133 - 145 mmol/L LAB CHEMISTRY METHOD 10/04/2024 8:15 PM [facility] Potassium 4.2 3.5 - 5.5 mmol/L LAB CHEMISTRY METHOD 10/04/2024 8:15 PM [facility] Chloride 113(H) 96 - 110 mmol/L LAB CHEMISTRY METHOD 10/04/2024 8:15 PM [facility] CO2 21 21 - 32 mmol/L LAB CHEMISTRY METHOD 10/04/2024 8:15 PM [facility] Anion Gap 6 3 - 11 LAB CHEMISTRY METHOD 10/04/2024 8:15 PM [facility] Glucose 106(H) 70 - 100 mg/dL LAB CHEMISTRY METHOD 10/04/2024 8:15 PM [facility] BUN 40(H) 5 - 25 mg/dL LAB CHEMISTRY METHOD 10/04/2024 8:15 PM [facility] Creatinine 3.15(H) 0.50 - 1.10 mg/dL LAB CHEMISTRY METHOD 10/04/2024 8:15 PM [facility] eGFR 14(L) >=60 mL/min/1. 73m2 LAB CHEMISTRY METHOD 10/04/2024 8:15 PM [facility] Comment:Calculation based on the Chronic Kidney Disease Epidemiology Collaboration (CKD-EPI) equation refit without adjustment for race. BUN/Creatinine Ratio 12.7 LAB CHEMISTRY METHOD 10/04/2024 8:15 PM [facility] Calcium 9.1 8.5 - 10.5 mg/dL LAB CHEMISTRY METHOD 10/04/2024 8:15 PM [facility] AST (SGOT) 13 10 - 42 unit/L LAB CHEMISTRY METHOD 10/04/2024 8:15 PM [facility] ALT (SGPT) 22 10 - 60 unit/L LAB CHEMISTRY METHOD 10/04/2024 8:15 PM EDT [facility] Alkaline Phosphatase 71 42 - 121 unit/L LAB CHEMISTRY METHOD 10/04/2024 8:15 PM EDT [facility] Total Protein 7.7 6.0 - 8.0 g/dL LAB CHEMISTRY METHOD 10/04/2024 8:15 PM EDT [facility] Albumin 4.2 3.2 - 5.0 g/dL LAB CHEMISTRY METHOD 10/04/2024 8:15 PM EDT [facility] Total Bilirubin 0.6 0.0 - 1.4 mg/dL LAB CHEMISTRY METHOD 10/04/2024 8:15 PM EDT [facility] Blood Venous blood specimen / Unknown 10/04/2024 10/04/2024 7:03 PM EDT us Gonzalo [place] LAB BLOOD ORDERABLES Final Res ult [facility] [address] [place] [address], documented in this encounter Visit Diagnoses Diagnosis Essential (primary) hypertension Unspecified essential hypertension Type 2 diabetes mellitus without complications (CMS/HCC V24, CMS/HCC V28) documented in this encounter Care Teams Paper Bundler Relationship Specialty Start Date End Date Venu Ramos MD [address] PCP - General Internal Medicine 02/17/14 documented as of this encounter
== END 2024-12-08 12:27 | disposition home or self-care (01) ==
LOC: HO.HKA 12:15
PROVIDERS: PCP Internal Medicine; Visit Provider Internal Medicine Hypertension Specialist
DX: N18.9 Chronic kidney disease, unspecified (principal); E11.9 Type 2 diabetes mellitus without complications
CPT/HCPCS: 99214

== ENCOUNTER → 2024-12-08 12:14 | Outpatient (BNVA) | payer MEDICARE, SELFPAY | PROVIDERS: PCP Internal Medicine; Visit Provider Internal Medicine Hypertension Specialist | DX: E11.22 Type 2 diabetes mellitus with diabetic chronic kidney disease (principal); N18.4 Chronic kidney disease, stage 4 (severe); E11.21 Type 2 diabetes mellitus with diabetic nephropathy; Z79.899 Other long term (current) drug therapy | CPT/HCPCS: 99212 ==

== ENCOUNTER 2025-03-06 13:44 | Outpatient (REF) | payer MEDICARE, SELFPAY ==
--- OUTSIDE RECORDS SUMMARY | 2024-07-04 07:30 | XMS_ITS ---
Author Organization [facility] [place] Address [address] [facility] [address] [place] [address] Care Team Providers Care Technology Manager Name Role Phone Migration, Provider Unavailable Unavailable REASON FOR VISIT Follow-up Appt Encounters Encounter Location Date Provider Diagnosis [facility], [address] [place] [phone] 07/04/2024 Provider Migration Plan Of Treatment No Information Progress Notes * LYNNE, JUNE IDOB: (79 yo F)Acc No.[id number]:07/04/2024 Progress Notes Patient: Juan RAMOS NOVEMBER I Provider: Patsy Chase :1945 A ge:78 Y S ex:Female Date:07/04/2024 Address:[address] [place], [place] [phone] Subjective: * Chief Complaints: * F ollow-up Appt * Ocular Surgical History: Objective: Vision Examination: * Electronic signature of Prov ider Migration on 03/06/2025 at 03:21 PM EDT Sign off status: Pending * Provider: Patsy savage Migration Date: 0 07/04/2024 Generated for Tati agustin/Jaimie/eTjosephinesmitting on: 0 03/06/2025 03:21 PM EDT
--- OUTSIDE RECORDS SUMMARY | 2024-07-04 07:30 | XMS_ITS ---
Author Organization [facility], [place] Address [address] [place] [address] Care Team Providers Care Curing Oven Attendant Name Role Phone Gonzalo Aguilar Unavailable [phone] REASON FOR VISIT Follow-up Appt Encounters Encounter Location Date Provider Diagnosis [facility], [address] [place] [phone] 07/04/2024 Gonzalo Aguilar Plan Of Treatment No Information Progress Notes * LYNNE, JUNE IDOB: (79 yo F)Acc No.[id number]:07/04/2024 Progress Notes Patient: Juan RAMOS November Provider: Fiona [place] :1945 A ge:78 Y S ex:Female Date:07/04/2024 Address:[address] [place], [place] [phone] Subjective: * Chief Complaints: * F ollow-up Appt * Ocular Surgical History: Objective: Vision Examination: * Electronic signature of Oni Aguilar PA-C on 03/06/2025 at 03:22 PM EDT Sign off status: Pending * Provider: Fiona CANADA Date: 0 07/04/2024 Generated for Minii ng/Fanog/eTransmitting on: 0 03/06/2025 03:22 PM EDT
--- OUTSIDE RECORDS SUMMARY | 2024-10-04 07:30 | XMS_ITS ---
Author Organization [facility] [place] Address [address] [place] [address] Care Team Providers Care Business Investor Name Role Phone Gonzalo Aguilar Unavailable [phone] REASON FOR VISIT Follow-up Appt Medications Medication SIG (Take, Route, Frequency, Duration) Notes Start Date End Date Status Simvastatin 10 MG Tablet 1 tablet in the evening Orally Once a day; Duration: 90 days Active Encounters Encounter Location Date Provider Diagnosis [address] [address] 10/04/2024 Gonzalo Aguilar Plan Of Treatment Medication Medication Name Sig Start Date Stop Date Notes Simvastatin 10 MG Tablet 1 tablet in the evening Orally Once a day; Duration: 90 days Progress Notes * LYNNENovember IDOB: (79 yo F)Acc No.[id number]:10/04/2024 Progress Notes Patient: Juan RAMOS November Provider: Fiona [place] :1945 A ge:78 Y S ex:Female Date:10/04/2024 Address:[address] [place], [place] [id number] Subjective: * Chief Complaints: * F ollow-up Appt * Ocular Surgical History: Objective: Vision Examination: Plan: * Treatment: * Electronic signature of Oni Aguilar PA-C on 03/06/2025 at 03:21 PM EDT Sign off status: Pending * Provider: Fiona CANADA Date: 10/04/2024 Generated for Printi ng/Faxing/eTransmitting on: 0 03/06/2025 03:21 PM EDT
--- OUTSIDE RECORDS SUMMARY | 2025-01-19 11:30 | XMS_ITS ---
Author Organization [facility] [place] Address [address] [facility] [address] [place] [address] Care Team Providers Care Public Health Administrator Name Role Phone Carlos Manuel Candida Unavailable [phone] REASON FOR VISIT Medication management Medications Medication [...] Date Provider Diagnosis [facility], [address] [address] 01/19/2025 Candida Horowitz Plan Of Treatment No Information Progress Notes * November IDOB: 4 (79 yo F)Acc No.[id number]:01/19/2025 Patient: Juan RAMOS NOVEMBER I Provider: Patrice Horowitz :1945 A ge:79 Y S ex:Female Date:01/19/2025 Address:[address] [place] [address] [place] [facility] Subjective: * Chief Complaints: * M edication [...] * Electronic signature of Yennifer Horowitz on 03/06/2025 at 03:21 PM EDT Sign off status: Pending * Provider: Patrice Horowitz Date: 01/19/2025 Generated for Tati agustin/Jaimie/Maria Del Carmen on: 03/06/2025 03:21 PM EDT
[2025-03-06 14:23] LABS: Hematocrit 35.5 % (37.0-47.0); Hemoglobin 11.6 g/dl (12.0-16.0); Mean Corpuscular HGB Conc 32.7 g/dl (31.0-35.0); Mean Corpuscular Hemoglobin 30.4 pg (27.0-33.0); Mean Corpuscular Volume 93.2 fL (80.0-98.0); NRBC Abs Auto 0.000 X10*3/uL (0.0-0.012); NRBC Pct Auto 0.0 /100WBC (0.0-0.2); Platelet Count 178 X10*3/uL (160-400); Red Blood Count 3.81 X10*6/uL (4.20-5.50); White Blood Count 8.0 X10*3/uL (4.8-10.8)
[2025-03-06 15:02] LABS: Anion Gap 11 (12-20); Blood Urea Nitrogen 38 mg/dL (9-16); Calcium 9.6 mg/dL (8.4-10.2); Carbon Dioxide 23 mmol/L (22-29); Chloride 115 mmol/L (96-108); Estimated Glomerular Filt Rate 16; Potassium 4.2 mmol/L (3.3-5.1); Sodium 145 mmol/L (135-145)
--- OUTSIDE RECORDS SUMMARY | 2025-03-06 15:21 | XMS_ITS | Patient Health Record ---
Author Organization [facility] [place] Address [address] [facility] [address] [place] [address] Care Team Providers Care Fixed Income Manager Name Role Phone Gonzalo Aguilar Unavailable [phone] Migration, Provider Unavailable Unavailable Candida Horowitz Unavailable [phone] Ashtyn Coronado Unavailable [phone] Reason For Referral No Information Medications Medication SIG (Take, Route, Frequency, Duration) Notes Start Date End Date Status Montelukast Sodium 10 MG Tablet 1 tablet Orally Once a day; Duration: 90 days Active Losartan Potassium 25 MG Tablet 1 tablet Orally Once a day; Duration: 90 days Active Farxiga 5 MG Tablet 1 tablet Orally Once a day; Duration: 90 days Active Colestipol HCl 1 GM Tablet 1 tablet Oral ly Twice a day; Duration: 90 days Active amLODIPine Besylate 5 MG Tablet 1 tablet Orally Once a day; Duration: 90 days Active Simvastatin 10 MG Tablet 1 tablet in the evening Orally Once a day; Duration: 90 days Active Albuterol Sulfate HFA 108 (90 Base) MCG/ACT Aerosol Solution 1 puff as needed Inhalation every 4 hrs; Duration: 90 days Active Alendronate Sodium 70 MG Tablet 1 tablet 30 minutes before the first food, beverage or medicine of the day with plain water Orally daily; Duration: 90 days Active Vitamin D3 50 MCG (1999 UT) Tablet 1 tablet Orally Once a day; Duration: 90 days Active Trelegy Ellipta 100-62.5-25 MCG/ACT Aerosol Powder Breath Activated 1 puff Inhalation Once a day; Duration: 90 days Active Encounters Encounter Location Date Provider Diagnosis [facility], [address] [address] 04/04/2024 Provider Migration [address] [address] 05/02/2024 Provider Migration [address] [address] 05/23/2024 Provider Migration [facility] [place] [address] [facility] [address] [place] [phone] 06/13/2024 Provider Migration [facility] [place] [address] [facility] [address] [place] [phone] 07/04/2024 Gonzalo Aguilar [facility] [place] [address] [facility] [address] [place] [phone] 07/04/2024 Provider Migration [facility] [place] [address] [facility] [address] [place] [phone] 10/04/2024 Gonzalo Aguilar [facility] [place] [address] [facility] [address] [place] [phone] 01/25/2025 Ashtyn Coronado Medication management Z79.899 [facility] [place] [address] [facility] [address] [address] 01/25/2025 Candida Horowitz [facility] [place] [address] [facility] [address] [address] 02/24/2025 Ashtyn Coronado Assessments Encounter Date Diagnosis (ICD Code) Assessment Notes Treatment Notes Treatment Clinical Notes Section Notes 01/25/2025 Medication management (ICD-10 - Z79.899) Telehealth for medication management Plan Of Treatment No Information Insurance Providers Payer Name Payer Address Payer Phone Subscriber Number Group Number Insured Name Patient Relationship to Insured Coverage Start Date Coverage End Date [facility] Medicare Plan [address] [address] [place] [id number] November Self - patient is the insured Medical (General) History Medical History History ICD Code asthma hyperlipidemia hypertension diabetes
--- OUTSIDE RECORDS SUMMARY | 2025-03-06 15:21 | XMS_ITS | Encounter Summary ---
Author Organization [facility] Address [address] [place] [address] Care Team Providers Care Test Cell Technician Name Role Phone Venu Ramos MD Primary Care Provider Encounter Details Date Type Department Care Team (Latest Contact Info) Description 10/04/2024 Lab Requisition [facility] - Main Lab [address] [facility] [place] [address] Gonzalo Aguilar PA 299 [facility] [address] [place], [place] [id number] Essential (primary) hypertension; Type 2 diabetes mellitus [...] Final Res ult [facility] [address] [place] [address], [place] [phone] * SST tube (10/04/2024 12:00 AM EDT) [facility] Extra Tube Hold for add-ons. 10/04/2024 9:01 PM EDT [facility] Comment:Auto resulted. Blood Venous blood specimen / Unknown 10/04/2024 10/04/2024 7:03 PM EDT Gonzalo CANADA LAB BLOOD ORDERABLES Final Res ult [facility] [address] [place] [address], [place] [phone] * (ABNORMAL) Urinalysis microscopic only (10/04/2024 12:00 AM EDT) [facility] RBC, Urine 2.9 0 - 4 /HPF [...] Final Res ult [facility] [address] [place] [address], [place] [phone] * (ABNORMAL) CBC auto differential (10/04/2024 12:00 AM EDT) WBC 7.0 4.8 - 10.8 K/mcL LAB HEMETOLOGY METHOD [facility] RBC 3.90 3.80 - 4.80 M/mcL LAB HEMETOLOGY METHOD 10/04/2024 8:05 PM [facility] Hemoglobin 11.9 11.5 - 16.0 g/dL LAB HEMETOLOGY METHOD 10/04/2024 8:05 PM EDT [facility] Hematocrit 37.9 35.0 - 47.0 % LAB HEMETOLOGY METHOD 10/04/2024 8:[facility] MCV 97.4 79.0 - 98.0 FL LAB HEMETOLOGY METHOD 10/04/2024 8:05 PM [facility] MCH 30.6 27.0 - 32.0 pcg LAB HEMETOLOGY METHOD 10/04/2024 8:05 [facility] MCHC 31.4(L) 32.0 - 37.0 g/dL LAB HEMETOLOGY METHOD 10/04/2024 8:05 PM [facility] RDW 13.8 11.0 - 15.0 % LAB HEMETOLOGY METHOD 10/04/2024 8:05 PM [facility] Platelets 194 130 - 400 K/mcL LAB HEMETOLOGY METHOD 10/04/2024 8:05 PM [facility] MPV 11.4(H) 7.0 - 11.0 FL LAB HEMETOLOGY METHOD 10/04/2024 8:05 PM [facility] NRBC 0.0 <1.0 % LAB HEMETOLOGY METHOD 10/04/2024 8:05 PM [facility] NRBC Absolute 0.00 <0.10 K/mcL LAB HEMETOLOGY METHOD 10/04/2024 8:05 PM [facility] Neutrophils Relative 58.4 % LAB HEMETOLOGY METHOD 10/04/2024 8:05 PM [facility] Lymphocytes Relative 26.4 % LAB HEMETOLOGY METHOD 10/04/2024 8:05 PM [facility] Monocytes Relative 8.0 % LAB HEMETOLOGY METHOD 10/04/2024 8:05 PM [facility] Eosinophils Relative 5.7 % LAB HEMETOLOGY METHOD 10/04/2024 8:05 PM [facility] Basophils Relative 1.1 % LAB HEMETOLOGY METHOD 10/04/2024 8:05 PM [facility] Immature Granulocytes Relative 0.4 % LAB HEMETOLOGY METHOD 10/04/2024 8:05 PM [facility] Neutrophils Absolute 4.08 1.50 - 7.00 K/mcL LAB HEMETOLOGY METHOD 10/04/2024 8:05 PM EDT [facility] Lymphocytes Absolute 1.85 1.00 - 5.00 K/mcL LAB HEMETOLOGY METHOD 10/04/2024 8:05 PM EDT [facility] Monocytes Absolute 0.56 0.20 - 1.00 K/mcL LAB HEMETOLOGY METHOD 10/04/2024 8:05 PM EDT [facility] Eosinophils Absolute 0.40 0.00 - 0.50 K/[facility] LAB HEMETOLOGY METHOD 10/04/2024 8:05 PM [...] Final Res ult [facility] [address] [place] [address], * Magnesium (10/04/2024 12:00 AM EDT) Magnesium 2.2 1.9 - 2.6 mg/dL LAB CHEMISTRY METHOD 10/04/2024 8:11 PM EDT [facility] Blood Venous blood specimen / Unknown 10/04/2024 10/04/2024 7:03 PM EDT Gonzalo CANADA LAB BLOOD ORDERABLES Final Res ult [facility] [address] [place] [address], [place] [phone] * (ABNORMAL) Hemoglobin A1c (10/04/2024 12:00 AM EDT) [facility] Hemoglobin A1C 6.7(H) <6.5 % LAB CHEMISTRY METHOD 10/05/2024 12:47 PM EDT [facility] Mean Bld Glu Estim. 146 mg/dL LAB CHEMISTRY METHOD 10/05/2024 12:47 PM EDT [facility] Blood Venous blood specimen / Unknown 10/04/2024 10/04/2024 7:03 PM EDT us Gonzalo CANADA LAB BLOOD ORDERABLES Final Res ult [facility] [address] [place] [address], * Thyroid stimulating hormone with reflex to free t4 and free t3 (10/04/2024 12:00 AM EDT) [facility] TSH 1.01 0.40 - 4.00 mcIU/mL LAB CHEMISTRY METHOD 10/04/2024 9:03 PM EDT [facility] Blood Venous blood specimen / Unknown 10/04/2024 10/04/2024 7:03 PM EDT us Gonzalo CANADA LAB BLOOD ORDERABLES Final Res ult [facility] [address] [place] [address], [place] [phone] * C-reactive protein (10/04/2024 12:00 AM EDT) [facility] C-Reactive Protein <0.29 <=0.50 mg/dL LAB CHEMISTRY METHOD 10/04/2024 8:11 PM EDT [facility] Blood Venous blood specimen / Unknown 10/04/2024 10/04/2024 7:03 PM EDT Gonzalo CANADA LAB BLOOD ORDERABLES Final Res ult [facility] [address] [place] [address], [place] [phone] * (ABNORMAL) Lipid panel with reflex to [...] ORDERABLES Final Res ult Performing Organization Address City/[facility]/ZIP Co de Phone Number [facility] [address] [place] [address], [place] [phone] * (ABNORMAL) Comprehensive metabolic panel (10/04/2024 12:00 AM EDT) Sodium 140 133 - 145 mmol/L LAB CHEMISTRY METHOD 10/04/2024 8:15 PM [facility] Potassium 4.2 3.5 - 5.5 mmol/L LAB CHEMISTRY METHOD 10/04/2024 8:15 PM [facility] Chloride 113(H) 96 - 110 mmol/L LAB CHEMISTRY METHOD 10/04/2024 8:15 PM [facility] CO2 21 21 - 32 mmol/L LAB CHEMISTRY METHOD 10/04/2024 8:15 PM [facility] Anion Gap 6 3 - 11 LAB CHEMISTRY METHOD 10/04/2024 8:15 PM [facility] Glucose 106(H) 70 - 100 mg/dL LAB CHEMISTRY METHOD 10/04/2024 8:15 PM [facility] BUN 40(H) 5 - 25 mg/dL LAB CHEMISTRY METHOD 10/04/2024 8:15 PM [facility] Creatinine 3.15(H) 0.50 - 1.10 mg/dL LAB CHEMISTRY METHOD 10/04/2024 8:15 PM [facility] eGFR 14(L) >=60 mL/min/1. 73m2 LAB CHEMISTRY METHOD 10/04/2024 8:15 PM [facility] Comment:Calculation based on the Chronic Kidney Disease Epidemiology Collaboration (CKD-EPI) equation refit without adjustment for race. BUN/Creatinine Ratio 12.7 LAB CHEMISTRY METHOD 10/04/2024 8:15 PM [facility] Calcium 9.1 8.5 - 10.5 mg/dL LAB CHEMISTRY METHOD 10/04/2024 8:15 PM [facility] AST (SGOT) 13 10 - 42 unit/L LAB CHEMISTRY METHOD 10/04/2024 8:15 PM [facility] ALT (SGPT) 22 10 - [...] Final Res ult [facility] [address] [place] [address], documented in this encounter Visit Diagnoses Diagnosis Essential (primary) hypertension Unspecified essential hypertension Type 2 diabetes mellitus without complications (CMS/HCC V24, CMS/HCC V28) documented in this encounter Care Teams Test Cell Technician Relationship Specialty Start Date End Date Venu Ramos MD [address] PCP - General Internal Medicine 02/17/14 documented as of this encounter
--- OUTSIDE RECORDS SUMMARY | 2025-03-06 15:21 | XMS_ITS | Encounter Summary ---
Author Organization [facility] Address [address] [place] [address] Care Team Providers Care Top Loader Name Role Phone Venu Ramos MD Primary Care Provider Encounter Details Date Type Department Care Team (Latest Contact Info) Description 07/04/2024 Lab Requisition [facility] - Main Lab [address] [facility] [place] [address] Gonzalo Aguilar PA [address] [facility] [address] [place], [place] [id number] Other fatigue; Encounter for screening for diabetes mellitus; Mixed hyperlipidemia; Type 2 diabetes mellitus without complications (CMS/HCC [...] K/mcL LAB HEMETOLOGY METHOD 07/04/2024 6:58 PM [facility] RBC 3.90 3.80 - 4.80 M/mcL LAB HEMETOLOGY METHOD 07/04/2024 6:58 PM [facility] Hemoglobin 11.9 11.5 - 16.0 g/dL LAB HEMETOLOGY METHOD 07/04/2024 6:58 PM [facility] Hematocrit 37.4 35.0 - 47.0 % LAB HEMETOLOGY METHOD 07/04/2024 6:58 PM [facility] MCV 94.9 79.0 - 98.0 FL LAB HEMETOLOGY METHOD 07/04/2024 6:58 PM [facility] MCH 30.2 27.0 - 32.0 pcg LAB HEMETOLOGY METHOD 07/04/2024 6:58 PM [facility] MCHC 31.8(L) 32.0 - 37.0 g/dL LAB HEMETOLOGY METHOD 07/04/2024 6:58 PM [facility] RDW 13.7 11.0 - 15.0 % LAB HEMETOLOGY METHOD 07/04/2024 6:58 PM [facility] Platelets 195 130 - 400 K/mcL LAB HEMETOLOGY METHOD 07/04/2024 6:58 PM [facility] MPV 11.3(H) 7.0 - 11.0 FL LAB HEMETOLOGY METHOD 07/04/2024 6:58 PM [facility] NRBC 0.0 <1.0 % LAB HEMETOLOGY METHOD 07/04/2024 6:58 PM [facility] NRBC Absolute 0.00 <0.10 K/mcL LAB HEMETOLOGY METHOD 07/04/2024 6:58 PM [facility] Neutrophils Relative 63.4 % LAB HEMETOLOGY METHOD 07/04/2024 6:58 PM [facility] Lymphocytes Relative 17.7 % LAB HEMETOLOGY METHOD 07/04/2024 6:58 PM [facility] Monocytes Relative 11.7 % LAB HEMETOLOGY METHOD 07/04/2024 6:58 PM [facility] Eosinophils Relative 5.8 % LAB HEMETOLOGY METHOD 07/04/2024 6:58 PM [facility] Basophils Relative 1.0 % LAB HEMETOLOGY METHOD 07/04/2024 6:58 PM [facility] Immature Granulocytes Relative 0.4 % LAB HEMETOLOGY METHOD 07/04/2024 6:58 PM [facility] Neutrophils Absolute 5.23 1.50 - 7.00 K/mcL LAB HEMETOLOGY METHOD 07/04/2024 6:58 PM [facility] Lymphocytes Absolute 1.46 1.00 - 5.00 K/mcL LAB HEMETOLOGY METHOD 07/04/2024 6:58 PM EST [facility] Monocytes Absolute 0.96 0.20 - 1.00 K/mcL LAB HEMETOLOGY METHOD 07/04/2024 6:58 PM [facility] Eosinophils Absolute 0.48 0.00 - 0.50 K/mcL LAB HEMETOLOGY METHOD 07/04/2024 6:58 PM [facility] Basophils Absolute 0.08 0.00 - 0.20 K/[facility] LAB HEMETOLOGY METHOD 07/04/2024 6:58 PM [facility] Immature Granulocytes Absolute 0.03 0.00 - 0.03 K/mcL LAB HEMETOLOGY METHOD 07/04/2024 6:58 PM [facility] Blood Venous blood specimen / Unknown 07/04/2024 07/04/2024 6:18 PM EST Gonzalo [place] LAB BLOOD ORDERABLES Final Res ult [facility] [address] [place] [address], [place] [phone] * SST tube (07/04/2024 12:00 AM EST) Extra Tube Hold for add-ons. 07/04/2024 8:01 PM EST [facility] Comment:Auto resulted. Blood Venous blood specimen / Unknown 07/04/2024 07/04/2024 6:18 PM EST Gonzalo [place] LAB BLOOD ORDERABLES Final Res ult [facility] [address] [place] [address], [place] [phone] * (ABNORMAL) Hemoglobin A1c (07/04/2024 12:00 AM EST) Hemoglobin A1C 7.0(H) <6.5 % LAB CHEMISTRY METHOD 07/04/2024 9:16 PM EST [facility] Mean Bld Glu Estim. 154 mg/dL LAB CHEMISTRY METHOD 07/04/2024 9:16 PM EST [facility] Blood Venous blood specimen / Unknown 07/04/2024 07/04/2024 6:18 PM EST us Gonzalo [place] LAB BLOOD ORDERABLES Final Res ult [facility] [address] [place] [address], [place] [phone] * LDL cholesterol, direct (07/04/2024 12:00 AM EST) Pathologist [facility] LDL Direct 89 <=100 mg/dL LAB CHEMISTRY METHOD 07/04/2024 7:13 PM EST [facility] Blood Venous blood specimen / Unknown 07/04/2024 07/04/2024 6:18 PM EST us Gonzalo [place] LAB BLOOD ORDERABLES Final Res ult [facility] [address] [place] [address], [place] [phone] * (ABNORMAL) Lipid panel with reflex to direct LDL (07/04/2024 12:00 AM EST) Pathologist [facility] Cholesterol 165 0 - 200 mg/dL LAB CHEMISTRY METHOD 07/04/2024 7:14 PM [facility] Triglycerides 346(H) 0 - 150 mg/dL LAB CHEMISTRY METHOD 07/04/2024 7:14 PM [facility] HDL 33(L) >=40 mg/dL LAB CHEMISTRY METHOD 07/04/2024 7:14 PM [facility] LDL Calculated 63 0 - 100 mg/dL LAB CHEMISTRY METHOD 07/04/2024 7:14 PM EST [facility] VLDL Cholesterol Jose Maria 69.2 mg/dL LAB CHEMISTRY METHOD 07/04/2024 7:14 PM [facility] Non HDL Chol. (LDL+VLDL) 132 <145 mg/dL LAB CHEMISTRY METHOD 07/04/2024 7:14 PM [facility] Chol/HDL Ratio 5.0(H) 0.0 - 4.4 LAB CHEMISTRY METHOD 07/04/2024 7:14 PM [facility] Blood Venous blood specimen / Unknown 07/04/2024 07/04/2024 6:18 PM EST us Gonzalo [place] LAB BLOOD ORDERABLES Final Res ult [facility] [address] [place] [address], [place] [phone] * (ABNORMAL) Comprehensive metabolic panel (07/04/2024 12:00 AM EST) Sodium 138 133 - 145 mmol/L LAB CHEMISTRY METHOD 07/04/2024 7:13 PM [facility] Potassium 4.7 3.5 - 5.5 mmol/L LAB CHEMISTRY METHOD 07/04/2024 7:13 PM [facility] Chloride 107 96 - 110 mmol/L LAB CHEMISTRY METHOD 07/04/2024 7:13 PM [facility] CO2 25 21 - 32 mmol/L LAB CHEMISTRY METHOD 07/04/2024 7:13 PM [facility] Anion Gap 6 3 - 11 LAB CHEMISTRY METHOD 07/04/2024 7:13 PM [facility] Glucose 184(H) 70 - 100 mg/dL LAB CHEMISTRY METHOD 07/04/2024 7:13 PM [facility] BUN 44(H) 5 - 25 mg/dL LAB CHEMISTRY METHOD 07/04/2024 7:13 PM [facility] Creatinine 3.32(H) 0.50 - 1.10 mg/dL LAB CHEMISTRY METHOD 07/04/2024 7:13 PM [facility] eGFR 14(L) >=60 mL/min/1. 73m2 LAB CHEMISTRY METHOD 07/04/2024 7:13 PM [facility] Comment:Calculation based on the Chronic Kidney Disease Epidemiology Collaboration (CKD-EPI) equation refit without adjustment for race. BUN/Creatinine Ratio 13.3 LAB CHEMISTRY METHOD 07/04/2024 7:13 PM [facility] Calcium 9.9 8.5 - 10.5 mg/dL LAB CHEMISTRY METHOD 07/04/2024 7:13 PM [facility] AST (SGOT) 9(L) 10 - 42 unit/L LAB CHEMISTRY METHOD 07/04/2024 7:13 PM [facility] ALT (SGPT) 22 10 - 60 unit/L LAB CHEMISTRY METHOD 07/04/2024 7:13 PM [facility] Alkaline Phosphatase 70 42 - 121 unit/L LAB CHEMISTRY METHOD 07/04/2024 7:13 PM [facility] Total Protein 7.6 6.0 - 8.0 g/dL LAB CHEMISTRY METHOD 07/04/2024 7:13 PM [facility] Albumin 4.1 3.2 - 5.0 g/dL LAB CHEMISTRY METHOD 07/04/2024 7:13 PM [facility] Total Bilirubin 0.5 0.0 - 1.4 mg/dL LAB CHEMISTRY METHOD 07/04/2024 7:13 PM [facility] Blood Venous blood specimen / Unknown 07/04/2024 07/04/2024 6:18 PM EST us Gonzalo [place] LAB BLOOD ORDERABLES Final Res ult [facility] [address] [place] [address], documented in this encounter Visit Diagnoses Diagnosis Other fatigue Encounter for screening for diabetes mellitus Mixed hyperlipidemia Type 2 diabetes mellitus without complications (CMS/HCC V24, CMS/HCC V28) documented in this encounter Care Teams Top Loader Relationship Specialty Start Date End Date Venu Ramos MD 299 [facility] [address] [place], [place] PCP - General Internal Medicine 02/17/14 documented as of this encounter
--- OUTSIDE RECORDS SUMMARY | 2025-03-06 15:21 | XMS_ITS | Clinical Summary ---
Author Organization [address] Address [address] [place] [phone] Phone Care Team Providers Care Teletypesetter Name Role Phone Venu Moreira MD Primary Care Provider [phone] Surgical History Surgery Date Site/Laterality Comments LASER ABLATION OF THE CERVIX PROCEDURE: [place] CAUTERY CERVIX LASER ABLATION Medical History Medical [...] mellitus) type II controlled with renal manifestation (CMS/HCC V24, CMS/HCC V28) 07/31/2010 DX:DM (diabetes mellitus) t ype II controlled with renal manifestation ([facility]) Family History Medical History Relation Name Comments [...] Td or Tdap) 04/06/2017 04/06/2007 RSV Immunization Adult Patients (1 - 1-dose 75+ series) 12/20/2018 Falls Risk Assessment 05/10/2022 Medicare Annual Wellness Visit 05/10/2022 Social Influencers of Health Screening 05/10/2022 Diabetes: Annual Urine Albumin-Creatinine Ratio (uACR) 05/24/2022 Depression Screening 06/08/2024 COVID-19 Vaccine ( season) 2025 Influenza Vaccine (#1) 2025 2, 02/19/2011, 04/26/2010, Additional history exists Diabetes: Blood Sugar Control Test (HGBA1C) 04/05/2025 10/04/2024, 07/04/2024 Diabetes: Annual GFR (Glomerular Filtration Rate) 10/04/2025 10/04/2024, 07/04/2024 Hypertension/CHF/CAD Annual BMP Blood Test 10/04/2025 10/04/2024, 07/04/2024 Cholesterol Screening (Lipid Panel) 10/04/2029 10/04/2024, 07/04/2024, 07/04/2024 Osteoporosis Screening (Bone Density Screening) [...] age to complete this topic Meningococcal B Vaccine Aged Out No l onger eligible based on patient's age to complete this topic RSV Immunization Patients Under 20 months Aged Out No longer eligible based on patient's age to complete this topic Varicella Vaccines Aged Out No longer eligible based on patient's age to complete this topic Procedures Procedure Name Priority Date/Time Associated Diagnosis Comments COMPREHENSIVE METABOLIC PANEL Routine 10/04/2024 12:00 AM EDT Essential (primary) hypertension Type 2 diabetes mellitus without complications ([facility]/HCC V24, CMS/[facility] V28) HEMOGLOBIN A1C Routine 10/04/2024 12:00 AM EDT Essential (primary) hypertension Type 2 diabetes mellitus without complications ([facility]/HCC V24, CMS/[facility] V28) LIPID PANEL WITH REFLEX TO DIRECT LDL Routine 10/04/2024 12:00 AM EDT Essential (primary) hypertension Type 2 diabetes mellitus without complications (CMS/HCC V24, CMS/[facility] V28) JANE DEXA AXIAL SKELETON Routine 11/22/2021 10:45 AM EDT Other specified disorders of bone density and structure, multiple sites from Last 3 Months or Most Recently Relevant to Health Maintenance Results * (ABNORMAL) Lipid panel with reflex to direct LDL (10/04/2024 12:00 AM EDT) Cholesterol 148 0 - 200 mg/dL LAB CHEMISTRY METHOD 10/04/2024 8:15 PM EDT [facility] Triglycerides 252(H) 0 - 150 mg/dL LAB CHEMISTRY METHOD 10/04/2024 8:15 PM EDT [facility] HDL 35(L) >=40 mg/dL LAB CHEMISTRY METHOD 10/04/2024 8:15 PM EDT [facility] LDL Calculated 63 0 - 100 mg/dL LAB CHEMISTRY METHOD 10/04/2024 8:15 PM EDT [facility] VLDL Cholesterol Jose Maria 50.4 mg/dL LAB CHEMISTRY METHOD 10/04/2024 8:15 PM EDT [facility] Non HDL Chol. (LDL+VLDL) 113 <145 mg/dL LAB CHEMISTRY METHOD 10/04/2024 8:15 PM EDT [facility] Chol/HDL Ratio 4.2 0.0 - 4.4 LAB CHEMISTRY METHOD 10/04/2024 8:15 PM EDT [facility] Blood Venous blood specimen / Unknown 10/04/2024 10/04/2024 7:03 PM EDT us Gonzalo [place] LAB BLOOD ORDERABLES Final Res ult Performing Organization Address [facility]/ZIP Co de Phone Number [facility] [address] [place] [address], [place] [phone] * (ABNORMAL) Hemoglobin A1c (10/04/2024 12:00 AM EDT) Hemoglobin A1C 6.7(H) <6.5 % LAB CHEMISTRY METHOD 10/05/2024 12:47 PM EDT [facility] Mean Bld Glu Estim. 146 mg/dL LAB CHEMISTRY METHOD 10/05/2024 12:47 PM EDT [facility] Blood Venous blood specimen / Unknown 10/04/2024 10/04/2024 7:03 PM EDT us Gonzalo [place] LAB BLOOD ORDERABLES Final Res ult [facility] [address] [place] [address], [place] [phone] * (ABNORMAL) Comprehensive metabolic panel (10/04/2024 12:00 AM EDT) Sodium 140 133 - 145 mmol/L LAB CHEMISTRY METHOD 10/04/2024 8:15 PM [facility] Potassium 4.2 3.5 - 5.5 mmol/L LAB CHEMISTRY METHOD 10/04/2024 8:15 PM [facility] Chloride 113(H) 96 - 110 mmol/L LAB CHEMISTRY METHOD 10/04/2024 8:15 PM [facility] CO2 21 21 - 32 mmol/L LAB CHEMISTRY METHOD 10/04/2024 8:15 PM [facility] Anion Gap 6 3 - 11 LAB CHEMISTRY METHOD 10/04/2024 8:15 PM [facility] Glucose 106(H) 70 - 100 mg/dL LAB CHEMISTRY METHOD 10/04/2024 8:15 PM [facility] BUN 40(H) 5 - 25 mg/dL LAB CHEMISTRY METHOD 10/04/2024 8:15 PM [facility] Creatinine 3.15(H) 0.50 - 1.10 mg/dL LAB CHEMISTRY METHOD 10/04/2024 8:15 PM [facility] eGFR 14(L) >=60 mL/min/1. 73m2 LAB CHEMISTRY METHOD 10/04/2024 8:15 PM [facility] Comment:Calculation based on the Chronic Kidney Disease Epidemiology Collaboration (CKD-EPI) equation refit without adjustment for race. BUN/Creatinine Ratio 12.7 LAB CHEMISTRY METHOD 10/04/2024 8:15 PM [facility] Calcium 9.1 8.5 - 10.5 mg/dL LAB CHEMISTRY METHOD 10/04/2024 8:15 PM [facility] AST (SGOT) 13 10 - 42 unit/L LAB CHEMISTRY METHOD 10/04/2024 8:15 PM [facility] ALT (SGPT) 22 10 - 60 unit/L LAB CHEMISTRY METHOD 10/04/2024 8:15 PM EDT [facility] Alkaline Phosphatase 71 42 - 121 unit/L LAB CHEMISTRY METHOD 10/04/2024 8:15 PM EDT [facility] Total Protein 7.7 6.0 - 8.0 g/dL LAB CHEMISTRY METHOD 10/04/2024 8:15 PM EDT [facility] Albumin 4.2 3.2 - 5.0 g/dL LAB CHEMISTRY METHOD 10/04/2024 8:15 PM EDT [facility] Total Bilirubin 0.6 0.0 - 1.4 mg/dL LAB CHEMISTRY METHOD 10/04/2024 8:15 PM EDT [facility] Blood Venous blood specimen / Unknown 10/04/2024 10/04/2024 7:03 PM EDT us Gonzalo [place] LAB BLOOD ORDERABLES Final Res ult [facility] [address] [place] [address], * JANE DEXA AXIAL SKELETON (11/22/2021 10:45 AM EDT) Anatomical Region Laterality Modality Mammography 11/22/2021 9:50 AM EDT Narrative 11/22/2021 10:45 AM EDT [facility] Diagnostic Imaging Department [address] [place] [address] Patient: LYNNEMADELEINE I /Age/Sex: 1945 - 75 - F Unit#: [id number] Location/Status: SPDIMAM/REG CLI Mnemonic/Ordering Site: MAMDEXAAX/SPMAM Ordering Physician: VENU MOREIRA MD Jane Dexa Axial Skeleton - 11/22/21 - 1013 HISTORY: The patient is a 75-year-old postmenopausal female with clinical concern for metabolic bone disease. FINDINGS: Dual [...] 105% of that of age matched controls. This yields a T-score of -1.2 and a [...] the prior examination of 08/10/2019. There has been a decrease of 3.9% in bone mineral density in the right femur and a decrease of 3.3% in bone mineral density in the left femur. 2. FRAX analysis yields a 10-year probability of major osteoporotic fracture of 20.7% and a 10-year probability of hip fracture of 5.2%. Code 56253 Dictating Physician: LIANA KIRKLAND MD Electronically Signed by: LIANA KIRKLAND MD Dic Date/Time: 11/22/21 1044 Sign date/Time: 11/22/21 1045 Procedure Note Liana Kirkland MD - 05/28/2022 [facility] Diagnostic Imaging Department [address] [place] [id number] Patient: MADELEINE BATISTA I /Age/Sex: 1945 - 75 - F Unit#: [id number] Location/Status: SPDIMAM/REG CLI Mnemonic/Ordering Site: MAMDEXAAX/SPMAM Ordering Physician: VENU MOREIRA MD Jane Dexa Axial Skeleton - 11/22/21 - 1013 [...] density of the femurs bilaterally is 0.855 gm/cz4ijlmm is 85% of that of young normals [...] probability of hip fracture of 5.2%. Code 02405 Dictating Physician: LIANA KIRKLAND MD Electronically Signed by: LIANA KIRKLAND MD Dic Date/Time: 11/22/21 1044 Sign date/Time: 11/22/21 1045 Venu Moreira MD IM BI PROCEDURES Final Res ult from Last 3 Months or Most Recently Relevant to Health Maintenance Insurance [employer] Care Teams Teletypesetter Relationship Specialty Start Date End Date Venu Moreira MD [address] PCP - General Internal Medicine 02/17/14
--- OUTSIDE RECORDS SUMMARY | 2025-03-06 15:21 | XMS_ITS | Clinical Summary ---
Author Organization [facility] Address [address] [address] Phone Care Team Providers Care Efficiency Manager Name Role Phone Unknown, Unknown Primary Care Provider Demetrio ervin Social History Tobacco Use Types Packs/Day Years Used Date Smoking Tobacco: Never Assessed Education Answer Date Recorded Are you interested in more education? Not on johana e 10/04/2022 Are you concerned about learning? Not on file 10/04/2022 No 10/04/2022 No 10/04/2022 Digital Access Answer Date Recorded No 11/04/2022 No 11/04/2022 Reliable internet access at home? Not on file 11/04/2022 Device with a working camera? Not on file Comments Unknown Sex and Gender Information Value Date Recorded Sex Assigned at Not on file Legal Sex Female 10:56 AM EDT Gender Identity Not on file Sexual Orientation Not on file Plan of Treatment Not on file Medical Devices Not on file Insurance [employer] RE[employer] Care Teams Efficiency Manager Relationship Specialty Start Date End Date Unknown, Unknown, PCP - General 12/11/21 Additional Source Comments The information contained in this document represents components of the legal health record. It is not the complete legal health record.[facility]
--- OUTSIDE RECORDS SUMMARY | 2025-03-06 15:22 | XMS_ITS | Clinical Summary ---
Author Organization [facility] Address [address] [place] [address] Phone Care Team Providers Care Core Sucker Name Role Phone Venu Ramos MD Primary Care Provider [phone] Allergies No known active allergies Medications alendronate [...] Visual Foot Exam 05/15/2021 Influenza Vaccine (#1) 2025 Pneumococcal Vaccine: Peds (0 to 5 Years) and At-Risk Patients (6 to 49 Years) Discontinued 04/26/2010, 05/20/2002 Hepatitis B Vaccine Aged Out No longe r eligible based on patient's age to complete this topic Insurance Medicare [facility] Medicare Care Teams Core Sucker Relationship Specialty Start Date End Date Venu Ramos MD [address] [place] [address] [place] [address] PCP - General 06/18/20
[2025-03-06 19:19] LABS: Parathyroid Hormone Intact 149.9 pg/mL (8.7-77.1)
== END 2025-03-06 13:45 | disposition home or self-care (01) ==
LOC: HO.LAB 13:44
PROVIDERS: Visit Provider Internal Medicine Hypertension Specialist
DX: N18.9 Chronic kidney disease, unspecified (principal)
CPT/HCPCS: 36415; 80048; 83970; 84100; 85027

== ENCOUNTER 2025-03-13 11:17 | Outpatient (AMB) | payer MEDICARE, SELFPAY ==
--- OUTSIDE RECORDS SUMMARY | 2024-07-04 07:30 | XMS_ITS ---
Author Organization [facility] [place] Address [address] [place] [address] Care Team Providers Care Pipe Foreman Name Role Phone Gonzalo Aguilar Unavailable [phone] REASON FOR VISIT Follow-up Appt Encounters Encounter Location Date Provider Diagnosis [facility], [address] [place] [phone] 07/04/2024 Gonzalo Aguilar Plan Of Treatment No Information Progress Notes * LYNNE, JUNE IDOB: (79 yo F)Acc No.[id number]:07/04/2024 Progress Notes Patient: Juan RAMOS November Provider: Fiona [place] :1945 A ge:78 Y S ex:Female Date:07/04/2024 Address:[address] [place], [place] [phone] Subjective: * Chief Complaints: * F ollow-up Appt * Ocular Surgical History: Objective: Vision Examination: * Electronic signature of Oni Aguilar PA-C on 03/13/2025 at 01:51 PM EDT Sign off status: Pending * Provider: Fiona CANA[place] Date: 0 07/04/2024 Generated for Minii ng/Fanog/eTransmitting on: 1 01:51 PM EDT
--- OUTSIDE RECORDS SUMMARY | 2024-07-04 07:30 | XMS_ITS ---
Author Organization [facility] [place] Address [address] [facility] [address] [place] [address] Care Team Providers Care Computer Repair Technician Name Role Phone Migration, Provider Unavailable Unavailable REASON FOR VISIT Follow-up Appt Encounters Encounter Location Date Provider Diagnosis [facility] [address] [place] [phone] 07/04/2024 Provider Migration Plan Of Treatment No Information Progress Notes * LYNNE, JUNE IDOB: (79 yo F)Acc No.[id number]:07/04/2024 Progress Notes Patient: Juan RAMOS NOVEMBER I Provider: Patsy Chase :1945 A ge:78 Y S ex:Female Date:07/04/2024 Address:[address] [place], [place] [id number] Subjective: * Chief Complaints: * F ollow-up Appt * Ocular Surgical History: Objective: Vision Examination: * Electronic signature of Prov ider Migration on 03/13/2025 at 01:51 PM EDT Sign off status: Pending * Provider: Patsy savage Migration Date: 0 07/04/2024 Generated for Tati agustin/Jaimie/eTjosephinesmitting on: 1 01:51 PM EDT
--- OUTSIDE RECORDS SUMMARY | 2024-10-04 07:30 | XMS_ITS ---
Author Organization [facility] [place] Address [address] [place] [address] Care Team Providers Care Oil Transport Driver Name Role Phone Gonzalo Aguilar Unavailable [phone] REASON FOR VISIT Follow-up Appt Medications Medication SIG (Take, Route, Frequency, Duration) Notes Start Date End Date Status Simvastatin 10 MG Tablet 1 tablet in the evening Orally Once a day; Duration: 90 days Active Encounters Encounter Location Date Provider Diagnosis [address] [address] 10/04/2024 Gonzalo Aguilar Plan Of Treatment Medication Medication Name Sig Start Date Stop Date Notes Simvastatin 10 MG Tablet 1 tablet in the evening Orally Once a day; Duration: 90 days Progress Notes * LYNNENovember IDOB: (79 yo F)Acc No.[id number]:10/04/2024 Progress Notes Patient: Juan RAMOS November Provider: Fiona CANA[place] :1945 A ge:78 Y S ex:Female Date:10/04/2024 Address:[address] [place], [place] [id number] Subjective: * Chief Complaints: * F ollow-up Appt * Ocular Surgical History: Objective: Vision Examination: Plan: * Treatment: * Electronic signature of Oni Aguilar PA-C on 03/13/2025 at 01:51 PM EDT Sign off status: Pending * Provider: Fiona CANADA Date: 0 10/04/2024 Generated for Printi ng/Fanog/eTransmitting on: 1 01:51 PM EDT
--- OUTSIDE RECORDS SUMMARY | 2025-01-19 11:30 | XMS_ITS ---
Author Organization [facility] [place] Address [address] [facility] [address] [place] [address] Care Team Providers Care Information Technology Security Analyst Name Role Phone Carlos Manuel Candida Unavailable [phone] REASON FOR VISIT Medication management Medications Medication SIG (Take, Route, Frequency, Duration) Notes Start Date End Date Status Albuterol Sulfate HFA 108 (90 Base) MCG/ACT Aerosol Solution 1 puff as needed Inhalation every 4 hrs Active Farxiga 5 MG Tablet 1 tablet Orally Once a day Active Colestipol HCl 1 GM Tablet 1 tablet Oral ly Twice a day Active Alendronate Sodium 70 MG Tablet 1 tablet 30 minutes before the first food, beverage or medicine of the day with plain water Orally Active amLODIPine Besylate 5 MG Tablet 1 tablet Orally Once a day Active Simvastatin 10 MG Tablet 1 tablet in the evening Orally Once a day Active Vitamin D3 50 MCG (1999 UT) Tablet 1 tablet Orally Once a day Active Losartan Potassium 25 MG Tablet 1 tablet Orally Once a day Active Montelukast Sodium 10 MG Tablet 1 tablet Orally Once a day Active Trelegy Ellipta 100-62.5-25 MCG/ACT Aerosol Powder Breath Activated 1 puff Inhalation Once a day Active Encounters Encounter Location Date Provider Diagnosis [facility], [address] [address] 01/19/2025 Candida Horowitz Plan Of Treatment No Information Progress Notes * November IDOB: 4 (79 yo F)Acc No.[id number]:01/19/2025 Patient: Juan RAMOS NOVEMBER I Provider: Patrice Horowitz :1945 A ge:79 Y S ex:Female Date:01/19/2025 Address:[address] [place] [address] [place] [facility] Subjective: * Chief Complaints: * M edication management * Medical History: Asthma Hyperlipidemia Hypertension Diabetes * Medications: T akingVitamin D3 50 MCG (2000 UT) Tablet 1 tablet Orally Once a day Simvastatin 10 MG Tablet 1 tablet in the evening Orally Once a day Trelegy Ellipta 100-62.5-25 MCG/ACT Aerosol Powder Breath Activated 1 puff Inhalation Once a day Montelukast Sodium 10 MG Tablet 1 tablet Orally Once a day Losartan Potassium 25 MG Tablet 1 tablet Orally Once a day Farxiga 5 MG Tablet 1 tablet Orally Once a day Colestipol HCl 1 GM Tablet 1 tablet Orally Twice a day amLODIPine Besylate 5 MG Tablet 1 tablet Orally Once a day Alendronate Sodium 70 MG Tablet 1 tablet 30 minutes before the first food, beverage or medicine of the day with plain water Orally Albuterol Sulfate HFA 108 (90 Base) MCG/ACT Aerosol Solution 1 puff as needed Inhalation every 4 hrs Taking Vitamin D3 50 MCG (2000 UT) Tablet 1 tablet Orally Once a day Taking Simvastatin 10 MG Tablet 1 tablet in the evening Orally Once a day Taking Trelegy Ellipta 100-62.5-25 MCG/ACT Aerosol Powder Breath Activated 1 puff Inhalation Once a day Taking Montelukast Sodium 10 MG Tablet 1 tablet Orally Once a day Taking Losartan Potassium 25 MG Tablet 1 tablet Orally Once a day Taking Farxiga 5 MG Tablet 1 tablet Orally Once a day Taking Colestipol HCl 1 GM Tablet 1 tablet Orally Twice a day Taking amLODIPine Besylate 5 MG Tablet 1 tablet Orally Once a day Taking Alendronate Sodium 70 MG Tablet 1 tablet 30 minutes before the first food, beverage or medicine of the day with plain water Orally Taking Albuterol Sulfate HFA 108 (90 Base) MCG/ACT Aerosol Solution 1 puff as needed Inhalation every 4 hrs Billing Information: * Procedure Codes: * Electronic signature of Yennifer Horowitz on 03/13/2025 at 01:51 PM EDT Sign off status: Pending * Provider: Patrice Horowitz Date: 0 01/19/2025 Generated for Tati agustin/Jaimie/Maria Del Carmen on: 01:51 PM EDT
[2025-03-13 11:19] VITALS: BP 120/60; PULSE 94; O2SAT 93; BMI 27.1
--- NOTE | 2025-03-13 11:19 | HO.NEPHOV ---
Vital Signs 03/13/25 11:19 Height 5 ft 6 in Weight 168 lb BMI 27.1 BP 120/60 Blood Pressure Location Rt brachial Position Sitting Pulse 94 Pulse Source Pulse Oximeter Pulse Oximetry (%) 93 Oxygen Delivery Method Room Air Intake Visit Reasons: 3mon follow-up w/labs, confirmed [employer] Regrooving Machine Operator Required: No Accompanied by: Son Allergies shellfish Allergy (Mild, Uncoded 10/05/23 11:36) Unknown Medication List - Last Reconciled 03/13/25 by Fadi Stokes MD albuterol sulfate 90 mcg/actuation 2 puffs inhalation Q4H PRN alendronate 70 mg PO QWEEK amlodipine 5 mg PO DAILY calcitriol 0.25 mcg PO DAILY cholecalciferol (vitamin D3) 50 mcg PO .QOD colestipol 1 g PO DAILY PRN dapagliflozin propanediol (Farxiga) 10 mg PO DAILY znvragtkhdl-esckowsos-bqqvhwga 200-62.5-25 mcg (Trelegy Ellipta) 1 inh inhalation DAILY losartan 25 mg PO DAILY montelukast 10 mg PO DAILY simvastatin 10 mg PO BEDTIME HPI Comments Details: Elderly woman with a history of longstanding diabetes mellitus with 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 h/o P-ANCA positivity She is here for further follow-up. No specific complaints today. 08/15/24 Sha loose stools - on Cholestepol and it helps She stopped Farxiga- Too expensive ( about $400 for 3 months) 12/08/24 The patient is an 78-year-old female presenting with chronic kidney disease. Her kidney function is currently stable at 15-17%, which has been consistent over recent evaluations. She has been advised to maintain hydration and monitor her kidney function regularly. The patient also has a history of asthma, which is managed with her current medication regimen. She reports no recent exacerbations and denies any significant respiratory symptoms. Additionally, the patient experiences occasional hyperglycemia, though she does not monitor her blood sugar levels daily. She has been advised to keep her blood sugar under control to prevent complications. 03/13/25 - The patient is an 79-year-old female presenting with chronic kidney disease secondary to diabetic nephropathy. - Diabetic nephropathy diagnosed by biopsy, under nephrology care for several years. 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 - Management includes blood pressure and sugar control, avoiding nephrotoxic drugs, adequate hydration. - Medications: amlodipine, losartan, vitamin D. - Labs: Hemoglobin 11.6 g/dL, A1c 6.5%. in December 2024 - Scheduled for cataract surgery in April, stable health status. - History of stable asthma. [facility] Family History Mother Diabetes Hypertension H/O kidney removal Social History Alcohol intake: never Patient Tobacco Use Status: Former Tobacco user Physical Exam Vital Signs: Last Vital Signs Pulse 94 03/13/25 11:19 BP 120/60 03/13/25 11:19 Pulse Ox 93 03/13/25 11:19 Oxygen Delivery Method Room Air 03/13/25 11:19 BMI result Body Mass Index 27.1 Comfortable Neck supple no JVD. Lungs entry equal no rales. Heart S1-S2 heard no gallop or rub. Abdomen soft nontender. Neuro alert awake oriented. No asterixis. Extremities no edema. Results Reviewed Nephrology Results: Hgb, (12.0-16.0) 11.6 g/dl L 03/06/25 WBC, (4.8-10.8) 8.0 X10*3/uL 03/06/25 Plt Count, (160-400) 178 X10*3/uL 03/06/25 Sodium, (135-145) 145 mmol/L 03/06/25 Potassium, (3.3-5.1) 4.2 mmol/L 03/06/25 Chloride, (96-108) 115 mmol/L H 03/06/25 Carbon Dioxide, (22-29) 23 mmol/L 03/06/25 BUN, (9-16) 38 mg/dL H 03/06/25 Creatinine, (0.5-1.4) 2.78 mg/dL H 03/06/25 Calcium, (8.4-10.2) 9.6 mg/dL 03/06/25 Phosphorus, (2.7-4.5) 3.4 mg/dL 03/06/25 PTH Intact, (8.7-77.1) 149.9 pg/mL H 03/06/25 Urine Protein, (Neg-Trace) 100 (2+) mg/dL H 02/01/24 Urine Creatinine 63.53 mg/dL 02/01/24 Assessment & Plan Assessment & Plan (1) CKD (chronic kidney disease): Code(s): N18.9 - Chronic kidney disease, unspecified Category: Medical (2) Diabetes mellitus: Code(s): E11.9 - Type 2 diabetes mellitus without complications Category: Medical Plan Elderly woman with longstanding diabetes mellitus with CKD 4. 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 At present renal function stable at baseline. Goal is to slow the portion disease Continue to avoid nephrotoxic agents. Optimize blood pressure and maintain blood pressure less than 130/80. Continue with losartan for renal protection. Creatinine has been relatively stable from 2022 till dats h/o P-ANCA positivity Off Januvia PTH elevated On Calcitriol 0.25 Watch Ca and PTH Anemia- HgB is stable at 11.6 and stable No indication for KAZ Discussed possible need for dialysis in the near future. s/p referral for dialysis education Seen by Nurse educator Answered all questions Orders: Orders Complete Blood Count no Diff 4 Months N18.9 - Chronic kidney disease, unspecified Parathyroid Hormone Intact 4 Months N18.9 - Chronic kidney disease, unspecified Basic Metabolic Panel 4 Months N18.9 - Chronic kidney disease, unspecified Phosphorus 4 Months N18.9 - Chronic kidney disease, unspecified Coding Level of Care Code Est Pt Level 4 (74148) Diagnoses CKD (chronic kidney disease) N18.9 Diabetes mellitus E11.9
--- OUTSIDE RECORDS SUMMARY | 2025-03-13 13:51 | XMS_ITS | Encounter Summary ---
Author Organization [facility] Address [address] [place] [id number] Care Team Providers Care Scale Clerk Name Role Phone Venu Ramos MD Primary Care Provider Encounter Details Date Type Department Care Team (Latest Contact Info) Description 07/04/2024 Lab Requisition [facility] - Main Lab [address] [facility] [place] [address] Gonzalo Aguilra PA [address] [place] [address] [place], [place] [id number] Other fatigue; Encounter for screening for diabetes [...] K/mcL LAB HEMETOLOGY METHOD 07/04/2024 6:58 PM [facility] RBC 3.90 3.80 - 4.80 M/mcL LAB HEMETOLOGY METHOD 07/04/2024 6:58 PM [facility] Hemoglobin 11.9 11.5 - 16.0 g/dL LAB HEMETOLOGY METHOD 07/04/2024 6:58 PM [facility] Hematocrit 37.4 35.0 - 47.0 % LAB HEMETOLOGY METHOD 07/04/2024 6:58 PM [facility] MCV 94.9 79.0 - 98.0 FL LAB HEMETOLOGY METHOD 07/04/2024 6:58 PM [facility] MCH 30.2 27.0 - 32.0 pcg LAB HEMETOLOGY METHOD 07/04/2024 6:58 PM [facility] MCHC 31.8(L) 32.0 - 37.0 g/dL LAB HEMETOLOGY METHOD 07/04/2024 6:58 PM [facility] RDW 13.7 11.0 - 15.0 % LAB HEMETOLOGY METHOD 07/04/2024 6:58 PM [facility] Platelets 195 130 - 400 K/mcL LAB HEMETOLOGY METHOD 07/04/2024 6:58 PM [facility] MPV 11.3(H) 7.0 - 11.0 FL LAB HEMETOLOGY METHOD 07/04/2024 6:58 PM [facility] NRBC 0.0 <1.0 % LAB HEMETOLOGY METHOD 07/04/2024 6:58 PM [facility] NRBC Absolute 0.00 <0.10 K/mcL LAB HEMETOLOGY METHOD 07/04/2024 6:58 PM [facility] Neutrophils Relative 63.4 % LAB HEMETOLOGY METHOD 07/04/2024 6:58 PM [facility] Lymphocytes Relative 17.7 % LAB HEMETOLOGY METHOD 07/04/2024 6:58 PM [facility] Monocytes Relative 11.7 % LAB HEMETOLOGY METHOD 07/04/2024 6:58 PM [facility] Eosinophils Relative 5.8 % LAB HEMETOLOGY METHOD 07/04/2024 6:58 PM [facility] Basophils Relative 1.0 % LAB HEMETOLOGY METHOD 07/04/2024 6:58 PM [facility] Immature Granulocytes Relative 0.4 % LAB HEMETOLOGY METHOD 07/04/2024 6:58 PM [facility] Neutrophils Absolute 5.23 1.50 - 7.00 K/mcL LAB HEMETOLOGY METHOD 07/04/2024 6:58 PM [facility] Lymphocytes Absolute 1.46 1.00 - 5.00 K/mcL LAB HEMETOLOGY METHOD 07/04/2024 6:58 PM EST [facility] Monocytes Absolute 0.96 0.20 - 1.00 K/mcL LAB HEMETOLOGY METHOD 07/04/2024 6:58 PM [facility] Eosinophils Absolute 0.48 0.00 - 0.50 K/mcL LAB HEMETOLOGY METHOD 07/04/2024 6:58 PM [facility] Basophils Absolute 0.08 0.00 - 0.20 K/[facility] LAB HEMETOLOGY METHOD 07/04/2024 6:58 PM [facility] Immature Granulocytes Absolute 0.03 0.00 - 0.03 K/mcL LAB HEMETOLOGY METHOD 07/04/2024 6:58 PM [facility] Blood Venous blood specimen / Unknown 07/04/2024 07/04/2024 6:18 PM EST Gonzalo [place] LAB BLOOD ORDERABLES Final Res ult [facility] [address] [place] [address], [place] [phone] * SST tube (07/04/2024 12:00 AM EST) Extra Tube Hold for add-ons. 07/04/2024 8:01 PM EST [facility] Comment:Auto resulted. Blood Venous blood specimen / Unknown 07/04/2024 07/04/2024 6:18 PM EST Gonzalo [place] LAB BLOOD ORDERABLES Final Res ult [facility] [address] [place] [address], [place] [phone] * (ABNORMAL) Hemoglobin A1c (07/04/2024 12:00 AM EST) Hemoglobin A1C 7.0(H) <6.5 % LAB CHEMISTRY METHOD 07/04/2024 9:16 PM EST [facility] Mean Bld Glu Estim. 154 mg/dL LAB CHEMISTRY METHOD 07/04/2024 9:16 PM EST [facility] Blood Venous blood specimen / Unknown 07/04/2024 07/04/2024 6:18 PM EST us Gonzalo [place] LAB BLOOD ORDERABLES Final Res ult [facility] [address] [place] [address], [place] [phone] * LDL cholesterol, direct (07/04/2024 12:00 AM EST) Pathologist [facility] LDL Direct 89 <=100 mg/dL LAB CHEMISTRY METHOD 07/04/2024 7:13 PM EST [facility] Blood Venous blood specimen / Unknown 07/04/2024 07/04/2024 6:18 PM EST us Gonzalo [place] LAB BLOOD ORDERABLES Final Res ult [facility] [address] [place] [address], [place] [phone] * (ABNORMAL) Lipid panel with reflex to direct LDL (07/04/2024 12:00 AM EST) Pathologist [facility] Cholesterol 165 0 - 200 mg/dL LAB CHEMISTRY METHOD 07/04/2024 7:14 PM [facility] Triglycerides 346(H) 0 - 150 mg/dL LAB CHEMISTRY METHOD 07/04/2024 7:14 PM [facility] HDL 33(L) >=40 mg/dL LAB CHEMISTRY METHOD 07/04/2024 7:14 PM [facility] LDL Calculated 63 0 - 100 mg/dL LAB CHEMISTRY METHOD 07/04/2024 7:14 PM EST [facility] VLDL Cholesterol Jose Maria 69.2 mg/dL LAB CHEMISTRY METHOD 07/04/2024 7:14 PM [facility] Non HDL Chol. (LDL+VLDL) 132 <145 mg/dL LAB CHEMISTRY METHOD 07/04/2024 7:14 PM [facility] Chol/HDL Ratio 5.0(H) 0.0 - 4.4 LAB CHEMISTRY METHOD 07/04/2024 7:14 PM [facility] Blood Venous blood specimen / Unknown 07/04/2024 07/04/2024 6:18 PM EST us Gonzalo [place] LAB BLOOD ORDERABLES Final Res ult [facility] [address] [place] [address], [place] [phone] * (ABNORMAL) Comprehensive metabolic panel (07/04/2024 12:00 AM EST) Sodium 138 133 - 145 mmol/L LAB CHEMISTRY METHOD 07/04/2024 7:13 PM [facility] Potassium 4.7 3.5 - 5.5 mmol/L LAB CHEMISTRY METHOD 07/04/2024 7:13 PM [facility] Chloride 107 96 - 110 mmol/L LAB CHEMISTRY METHOD 07/04/2024 7:13 PM [facility] CO2 25 21 - 32 mmol/L LAB CHEMISTRY METHOD 07/04/2024 7:13 PM [facility] Anion Gap 6 3 - 11 LAB CHEMISTRY METHOD 07/04/2024 7:13 PM [facility] Glucose 184(H) 70 - 100 mg/dL LAB CHEMISTRY METHOD 07/04/2024 7:13 PM [facility] BUN 44(H) 5 - 25 mg/dL LAB CHEMISTRY METHOD 07/04/2024 7:13 PM [facility] Creatinine 3.32(H) 0.50 - 1.10 mg/dL LAB CHEMISTRY METHOD 07/04/2024 7:13 PM [facility] eGFR 14(L) >=60 mL/min/1. 73m2 LAB CHEMISTRY METHOD 07/04/2024 7:13 PM [facility] Comment:Calculation based on the Chronic Kidney Disease Epidemiology Collaboration (CKD-EPI) equation refit without adjustment for race. BUN/Creatinine Ratio 13.3 LAB CHEMISTRY METHOD 07/04/2024 7:13 PM [facility] Calcium 9.9 8.5 - 10.5 mg/dL LAB CHEMISTRY METHOD 07/04/2024 7:13 PM [facility] AST (SGOT) 9(L) 10 - 42 unit/L LAB CHEMISTRY METHOD 07/04/2024 7:13 PM [facility] ALT (SGPT) 22 10 - 60 unit/L LAB CHEMISTRY METHOD 07/04/2024 7:13 PM [facility] Alkaline Phosphatase 70 42 - 121 unit/L LAB CHEMISTRY METHOD 07/04/2024 7:13 PM [facility] Total Protein 7.6 6.0 - 8.0 g/dL LAB CHEMISTRY METHOD 07/04/2024 7:13 PM [facility] Albumin 4.1 3.2 - 5.0 g/dL LAB CHEMISTRY METHOD 07/04/2024 7:13 PM [facility] Total Bilirubin 0.5 0.0 - 1.4 mg/dL LAB CHEMISTRY METHOD 07/04/2024 7:13 PM [facility] Blood Venous blood specimen / Unknown 07/04/2024 07/04/2024 6:18 PM EST us Gonzalo [place] LAB BLOOD ORDERABLES Final Res ult [facility] [address] [place] [address], documented in this encounter Visit Diagnoses Diagnosis Other fatigue Encounter for screening for diabetes mellitus Mixed hyperlipidemia Type 2 diabetes mellitus without complications (CMS/HCC V24, CMS/HCC V28) documented in this encounter Care Teams Scale Clerk Relationship Specialty Start Date End Date Venu Ramos MD [address] [facility] [address] [place], [place] PCP - General Internal Medicine 02/17/14 documented as of this encounter
--- OUTSIDE RECORDS SUMMARY | 2025-03-13 13:51 | XMS_ITS | Patient Health Record ---
Author Organization [facility] [place] Address [address] [facility] [address] [place] [address] Care Team Providers Care Welt Cutter Name Role Phone Gonzalo Aguilar Unavailable [phone] Migration, Provider Unavailable Unavailable Candida Horowitz Unavailable [phone] Ashtyn Coronado Unavailable [phone] Reason For Referral No Information Medications Medication [...] Active Encounters Encounter Location Date Provider Diagnosis [facility], [address] [address] 04/04/2024 Provider Migration [address] [address] 05/02/2024 Provider Migration [address] [address] 05/23/2024 Provider Migration [facility] [place] [address] [place] [phone] 06/13/2024 Provider Migration [facility] [place] [address] [place] [phone] 07/04/2024 Gonzalo Aguilar [facility] [place] [address] [place] [phone] 07/04/2024 Provider Migration [facility] [place] [address] [place] [phone] 10/04/2024 Gonzalo Aguilar [facility] [place] [address] [place] [phone] 01/25/2025 Ashtyn Coronado Medication management Z79.899 [facility] [place] [address] [address] 01/25/2025 Candida Horowitz [facility] [place] [address] [address] 02/24/2025 Ashtyn Coronado Assessments Encounter Date Diagnosis (ICD Code) Assessment Notes Treatment Notes Treatment Clinical Notes Section Notes 01/25/2025 Medication management (ICD-10 - Z79.899) Telehealth for medication management Plan Of Treatment No Information Insurance Providers Payer Name Payer Address Payer Phone Subscriber Number Group Number Insured Name Patient Relationship to Insured Coverage Start Date Coverage End Date [facility] Medicare Plan [address] [address] [place] [address] [id number] November Self - patient is the insured Medical (General) History Medical History History ICD Code asthma hyperlipidemia hypertension diabetes
--- OUTSIDE RECORDS SUMMARY | 2025-03-13 13:51 | XMS_ITS | Encounter Summary ---
Author Organization [employer] Address [address] [place] [address] Care Team Providers Care Rug Hooker Name Role Phone Venu Ramos MD Primary Care Provider Encounter Details Date Type Department Care Team (Latest Contact Info) Description 10/04/[address] [facility] - Main Lab [address] [facility] [place] [address] Gonzalo Aguilar PA [address] [facility] [address] [place], [place] [id number] Essential (primary) hypertension; Type 2 diabetes mellitus [...] LAB CHEMISTRY METHOD 10/05/2024 9:41 AM EDT [facility] Blood Venous blood specimen / Unknown 10/04/2024 10/04/2024 7:03 PM EDT Gonzalo [place] LAB BLOOD ORDERABLES Final Res ult [facility] [address] [place] [address], [place] [phone] * SST tube (10/04/2024 12:00 AM EDT) [facility] Extra Tube Hold for add-ons. 10/04/2024 9:01 PM EDT [facility] Comment:Auto resulted. Blood Venous blood specimen / Unknown 10/04/2024 10/04/2024 7:03 PM EDT Gonzalo [place] LAB BLOOD ORDERABLES Final Res ult [facility] [address] [place] [address], [place] [phone] * (ABNORMAL) Urinalysis microscopic only (10/04/2024 12:00 AM EDT) [facility] RBC, Urine 2.9 0 - 4 /HPF LAB URINALYSIS - AUTOMATED METHOD 10/04/2024 8:38 PM EDT [facility] WBC, Urine 20.8(H) 0 - 4 /HPF LAB URINALYSIS - AUTOMATED METHOD 10/04/2024 8:38 PM EDT [facility] Squamous Epithelial, Urine 38 0 - 60 /LPF LAB URINALYSIS - AUTOMATED METHOD 10/04/2024 8:38 PM EDT [facility] Bacteria, Urine Negative Negative /HPF LAB URINALYSIS - AUTOMATED METHOD 10/04/2024 8:38 PM EDT [facility] Hyaline Casts, Urine 2.8 0 - 3 /LPF LAB URINALYSIS - AUTOMATED METHOD 10/04/2024 8:38 PM EDT [facility] Urine Urine specimen obtained by clean catch procedure / Unknown 10/04/2024 10/04/2024 7:03 PM EDT us Gonzalo [place] LAB URINE ORDERABLES Final Res ult [facility] [address] [place] [address], [place] [phone] * (ABNORMAL) CBC auto differential (10/04/2024 12:00 AM EDT) WBC 7.0 4.8 - 10.8 K/mcL LAB HEMETOLOGY METHOD [facility] RBC 3.90 3.80 - 4.80 M/mcL LAB HEMETOLOGY METHOD 10/04/2024 8:05 PM [facility] Hemoglobin 11.9 11.5 - 16.0 g/dL LAB HEMETOLOGY METHOD 10/04/2024 8:05 PM EDT [facility] Hematocrit 37.9 35.0 - 47.0 % LAB HEMETOLOGY METHOD 10/04/2024 8:05 PM [facility] MCV 97.4 79.0 - 98.0 FL LAB HEMETOLOGY METHOD 10/04/2024 8:05 PM [facility] MCH 30.6 27.0 - 32.0 pcg LAB HEMETOLOGY METHOD 10/04/2024 8:05 PM [facility] MCHC 31.4(L) 32.0 - 37.0 g/dL [...] LAB HEMETOLOGY METHOD 10/04/2024 8:05 PM EDT [facility] Lymphocytes Absolute 1.85 1.00 - 5.00 K/mcL LAB HEMETOLOGY METHOD 10/04/2024 8:05 PM EDT [facility] Monocytes Absolute 0.56 0.20 - 1.00 K/mcL LAB HEMETOLOGY METHOD 10/04/2024 8:05 PM EDT [facility] Eosinophils Absolute 0.40 0.00 - 0.50 K/[facility] LAB HEMETOLOGY METHOD 10/04/2024 8:05 PM EDT [facility] Basophils Absolute 0.08 0.00 - 0.20 K/mcL LAB HEMETOLOGY METHOD 10/04/2024 8:05 PM EDT [facility] Immature Granulocytes Absolute 0.03 0.00 - 0.03 K/mcL LAB HEMETOLOGY METHOD 10/04/2024 8:05 PM EDT [facility] Blood Venous blood specimen / Unknown 10/04/2024 10/04/2024 7:03 PM EDT Gonzalo [place] LAB BLOOD ORDERABLES Final Res ult [facility] [address] [place] [address], * Magnesium (10/04/2024 12:00 AM EDT) Magnesium 2.2 1.9 - 2.6 mg/dL LAB CHEMISTRY METHOD 10/04/2024 8:11 PM EDT [facility] Blood Venous blood specimen / Unknown 10/04/2024 10/04/2024 7:03 PM EDT Gonzalo [place] LAB BLOOD ORDERABLES Final Res ult [facility] [address] [place] [address], [place] [phone] * (ABNORMAL) Hemoglobin A1c (10/04/2024 12:00 AM EDT) [facility] Hemoglobin A1C 6.7(H) <6.5 % LAB CHEMISTRY METHOD 10/05/2024 12:47 PM EDT [facility] Mean Bld Glu Estim. 146 mg/dL LAB CHEMISTRY METHOD 10/05/2024 12:47 PM EDT [facility] Blood Venous blood specimen / Unknown 10/04/2024 10/04/2024 7:03 PM EDT us Gonzalo [place] LAB BLOOD ORDERABLES Final Res ult [facility] [address] [place] [address], * Thyroid stimulating hormone with reflex to free t4 and free t3 (10/04/2024 12:00 AM EDT) [facility] TSH 1.01 0.40 - 4.00 mcIU/mL LAB CHEMISTRY METHOD 10/04/2024 9:03 PM EDT [facility] Blood Venous blood specimen / Unknown 10/04/2024 10/04/2024 7:03 PM EDT us Gonzalo [place] LAB BLOOD ORDERABLES Final Res ult [facility] [address] [place] [address], [place] [phone] * C-reactive protein (10/04/2024 12:00 AM EDT) [facility] C-Reactive Protein <0.29 <=0.50 mg/dL LAB CHEMISTRY METHOD 10/04/2024 8:11 PM EDT [facility] Blood Venous blood specimen / Unknown 10/04/2024 10/04/2024 7:03 PM EDT Gonzalo [place] LAB BLOOD ORDERABLES Final Res ult [facility] [address] [place] [address], [place] [phone] * (ABNORMAL) Lipid panel with reflex to direct LDL (10/04/2024 12:00 AM EDT) Cholesterol 148 0 - 200 mg/dL LAB CHEMISTRY METHOD 10/04/2024 8:15 PM EDT [facility] Triglycerides 252(H) 0 - 150 mg/dL LAB CHEMISTRY METHOD 10/04/2024 8:15 PM EDT [facility] HDL 35(L) >=40 mg/dL LAB CHEMISTRY METHOD 10/04/2024 8:15 PM EDT [facility] LDL Calculated 63 0 - 100 mg/dL LAB CHEMISTRY METHOD 10/04/2024 8:15 PM EDT [facility] VLDL Cholesterol Jose Maria 50.4 mg/dL LAB CHEMISTRY METHOD 10/04/2024 8:15 PM EDT [facility] Non HDL Chol. (LDL+VLDL) 113 <145 mg/dL LAB CHEMISTRY METHOD 10/04/2024 8:15 PM EDT [facility] Chol/HDL Ratio 4.2 0.0 - 4.4 LAB CHEMISTRY METHOD 10/04/2024 8:15 PM EDT [facility] Blood Venous blood specimen / Unknown 10/04/2024 10/04/2024 7:03 PM EDT us Gonzalo [place] LAB BLOOD ORDERABLES Final Res ult Performing Organization Address City/[facility]/ZIP Co de Phone Number [facility] [address] [place] [address], [place] [phone] * (ABNORMAL) Comprehensive metabolic panel (10/04/2024 12:00 [...] LAB CHEMISTRY METHOD 10/04/2024 8:15 PM EDT [facility] Alkaline Phosphatase 71 42 - 121 unit/L LAB CHEMISTRY METHOD 10/04/2024 8:15 PM EDT [facility] Total Protein 7.7 6.0 - 8.0 g/dL LAB CHEMISTRY METHOD 10/04/2024 8:15 PM EDT [facility] Albumin 4.2 3.2 - 5.0 g/dL LAB CHEMISTRY METHOD 10/04/2024 8:15 PM EDT [facility] Total Bilirubin 0.6 0.0 - 1.4 mg/dL LAB CHEMISTRY METHOD 10/04/2024 8:15 PM EDT [facility] Blood Venous blood specimen / Unknown 10/04/2024 10/04/2024 7:03 PM EDT us Gonzalo [place] LAB BLOOD ORDERABLES Final Res ult [facility] [address] [place] [address], documented in this encounter Visit Diagnoses Diagnosis Essential (primary) hypertension Unspecified essential hypertension Type 2 diabetes mellitus without complications (CMS/HCC V24, CMS/HCC V28) documented in this encounter Care Teams Rug Hooker Relationship Specialty Start Date End Date Venu Ramos MD [address] PCP - General Internal Medicine 02/17/14 documented as of this encounter
--- OUTSIDE RECORDS SUMMARY | 2025-03-13 13:51 | XMS_ITS | Clinical Summary ---
Author Organization [facility] Address [address] [address] Phone Care Team Providers Care Spanish Instructor Name Role Phone Unknown, Unknown Primary Care [...] [employer] Care Teams Spanish Instructor Relationship Specialty Start Date End Date Unknown, Unknown, PCP - General 12/11/21 Additional Source Comments The information contained in this document represents components of the legal health record. It is not the complete legal health record.[facility]
--- OUTSIDE RECORDS SUMMARY | 2025-03-13 13:51 | XMS_ITS | Clinical Summary ---
Author Organization [address] Address [address] [place] [address] Phone Care Team Providers Care Ships Or Barges Loader Name Role Phone Venu Moreira MD Primary Care Provider [phone] Surgical History Surgery Date Site/Laterality Comments LASER ABLATION OF THE CERVIX PROCEDURE: [facility]UT[facility] CERVIX LASER ABLATION Medical History Medical [...] II controlled with renal manifestation ([facility]) Family History Medical History Relation Name Comments [...] hypertension Type 2 diabetes mellitus without complications ([facility]/HCC V24, CMS/[facility] V28) HEMOGLOBIN A1C Routine 10/04/2024 12:00 AM EDT Essential (primary) hypertension Type 2 diabetes mellitus without complications ([facility]/HCC V24, CMS/[facility] V28) LIPID PANEL WITH REFLEX TO DIRECT LDL Routine 10/04/2024 12:00 AM EDT Essential (primary) hypertension Type 2 diabetes mellitus without complications (CMS/HCC V24, CMS/[facility] V28) JANE DEXA AXIAL SKELETON Routine 11/22/2021 10:45 AM EDT Other specified disorders of bone density and structure, multiple sites from Last 3 Months or Most Recently Relevant to Health Maintenance Results * (ABNORMAL) Lipid panel with reflex to direct LDL (10/04/2024 12:00 AM EDT) Cholesterol 148 0 - 200 mg/dL LAB CHEMISTRY METHOD 10/04/2024 8:15 PM EDT [facility] Triglycerides 252(H) 0 - 150 mg/dL LAB CHEMISTRY METHOD 10/04/2024 8:15 PM EDT [facility] HDL 35(L) >=40 mg/dL LAB CHEMISTRY METHOD 10/04/2024 8:15 PM EDT [facility] LDL Calculated 63 0 - 100 mg/dL LAB CHEMISTRY METHOD 10/04/2024 8:15 PM EDT [facility] VLDL Cholesterol Jose Maria 50.4 mg/dL LAB CHEMISTRY METHOD 10/04/2024 8:15 PM EDT [facility] Non HDL Chol. (LDL+VLDL) 113 <145 mg/dL LAB CHEMISTRY METHOD 10/04/2024 8:15 PM EDT [facility] Chol/HDL Ratio 4.2 0.0 - 4.4 LAB CHEMISTRY METHOD 10/04/2024 8:15 PM EDT [facility] Blood Venous blood specimen / Unknown 10/04/2024 10/04/2024 7:03 PM EDT us Gonzalo [place] LAB BLOOD ORDERABLES Final Res ult Performing Organization Address [facility]/ZIP Co de Phone Number [facility] [address] [place] [address], [place] [phone] * (ABNORMAL) Hemoglobin A1c (10/04/2024 12:00 AM EDT) Hemoglobin A1C 6.7(H) <6.5 % LAB CHEMISTRY METHOD 10/05/2024 12:47 PM EDT [facility] Mean Bld Glu Estim. 146 mg/dL LAB CHEMISTRY METHOD 10/05/2024 12:47 PM EDT [facility] Blood Venous blood specimen / Unknown 10/04/2024 10/04/2024 7:03 PM EDT us Gonzalo [place] LAB BLOOD ORDERABLES Final Res ult [facility] [address] [place] [address], [place] [phone] * (ABNORMAL) Comprehensive metabolic panel (10/04/2024 12:00 AM EDT) Sodium 140 133 - 145 mmol/L LAB CHEMISTRY METHOD 10/04/2024 8:15 PM [facility] Potassium 4.2 3.5 - 5.5 mmol/L LAB CHEMISTRY METHOD 10/04/2024 8:15 PM [facility] Chloride 113(H) 96 - 110 mmol/L LAB CHEMISTRY METHOD 10/04/2024 8:15 PM [facility] CO2 21 21 - 32 mmol/L LAB CHEMISTRY METHOD 10/04/2024 8:15 PM [facility] Anion Gap 6 3 - 11 LAB CHEMISTRY METHOD 10/04/2024 8:15 PM [facility] Glucose 106(H) 70 - 100 mg/dL LAB CHEMISTRY METHOD 10/04/2024 8:15 PM [facility] BUN 40(H) 5 - 25 mg/dL LAB CHEMISTRY METHOD 10/04/2024 8:15 PM [facility] Creatinine 3.15(H) 0.50 - 1.10 mg/dL LAB CHEMISTRY METHOD 10/04/2024 8:15 PM [facility] eGFR 14(L) >=60 mL/min/1. 73m2 LAB CHEMISTRY METHOD 10/04/2024 8:15 PM [facility] Comment:Calculation based on the Chronic Kidney Disease Epidemiology Collaboration (CKD-EPI) equation refit without adjustment for race. BUN/Creatinine Ratio 12.7 LAB CHEMISTRY METHOD 10/04/2024 8:15 PM [facility] Calcium 9.1 8.5 - 10.5 mg/dL LAB CHEMISTRY METHOD 10/04/2024 8:15 PM [facility] AST (SGOT) 13 10 - 42 unit/L LAB CHEMISTRY METHOD 10/04/2024 8:15 PM [facility] ALT (SGPT) 22 10 - 60 unit/L LAB CHEMISTRY METHOD 10/04/2024 8:15 PM EDT [facility] Alkaline Phosphatase 71 42 - 121 unit/L LAB CHEMISTRY METHOD 10/04/2024 8:15 PM EDT [facility] Total Protein 7.7 6.0 - 8.0 g/dL LAB CHEMISTRY METHOD 10/04/2024 8:15 PM EDT [facility] Albumin 4.2 3.2 - 5.0 g/dL LAB CHEMISTRY METHOD 10/04/2024 8:15 PM EDT [facility] Total Bilirubin 0.6 0.0 - 1.4 mg/dL LAB CHEMISTRY METHOD 10/04/2024 8:15 PM EDT [facility] Blood Venous blood specimen / Unknown 10/04/2024 10/04/2024 7:03 PM EDT us Gonzalo [place] LAB BLOOD ORDERABLES Final Res ult [facility] [address] [place] [address], * JANE DEXA AXIAL SKELETON (11/22/2021 10:45 AM EDT) Anatomical Region Laterality Modality Mammography 11/22/2021 9:50 AM EDT Narrative 11/22/2021 10:45 AM EDT [facility] Diagnostic Imaging Department [address] [place] [address] Patient: LYNNEMADELEINE I /Age/Sex: 1945 - 75 - F Unit#: [id number] Location/Status: SPDIMAM/REG CLI Mnemonic/Ordering Site: MAMDEXAAX/SPMAM Ordering [...] probability of hip fracture of 5.2%. Code 61670 Dictating Physician: LIANA KIRKLAND MD Electronically Signed by: LIANA KIRKLAND MD Dic Date/Time: 11/22/21 1044 Sign date/Time: 11/22/21 1045 Procedure Note Liana Kirkland MD - 05/28/2022 [facility] Diagnostic Imaging Department [address] [place] [id number] Patient: MADELEINE BATISTA I /Age/Sex: 1945 - 75 - F Unit#: [id number] Location/Status: SPDIMAM/REG CLI Mnemonic/Ordering Site: MAMDEXAAX/SPMAM Ordering [...] density of the femurs bilaterally is 0.855 gm/ng7wwvti is 85% of that of young normals [...] probability of hip fracture of 5.2%. Code 04317 Dictating Physician: LIANA KIRKLAND MD Electronically Signed by: LIANA KIRKLAND MD Dic Date/Time: 11/22/21 1044 Sign date/Time: 11/22/21 1045 Venu Moreira MD IM BI PROCEDURES Final Res ult from Last 3 Months or Most Recently Relevant to Health Maintenance Insurance [employer] [place] [address] Care Teams Ships Or Barges Loader Relationship Specialty Start Date End Date Venu Moreira MD [address] PCP - General Internal Medicine 02/17/14
--- OUTSIDE RECORDS SUMMARY | 2025-03-13 13:52 | XMS_ITS | Clinical Summary ---
Author Organization [facility] Address [address] [place] [address] Phone Care Team Providers Care Auto Body Worker Name Role Phone Venu Ramos MD Primary Care Provider [phone] Allergies No known active allergies Medications alendronate [...] age to complete this topic Insurance Medicare [facility] Medicare Care Teams Auto Body Worker Relationship Specialty Start Date End Date Venu Ramos MD [address] [place] [address] [address] [place] [address] PCP - General 06/18/20
== END 2025-03-13 11:34 | disposition home or self-care (01) ==
LOC: HO.HKA 11:17
PROVIDERS: PCP Internal Medicine; Visit Provider Internal Medicine Hypertension Specialist
DX: N18.9 Chronic kidney disease, unspecified (principal); E11.9 Type 2 diabetes mellitus without complications
CPT/HCPCS: 99214

== ENCOUNTER → 2025-03-13 11:17 | Outpatient (BNVA) | payer MEDICARE, SELFPAY | PROVIDERS: PCP Internal Medicine; Visit Provider Internal Medicine Hypertension Specialist | DX: E11.22 Type 2 diabetes mellitus with diabetic chronic kidney disease (principal); I12.9 Hypertensive chronic kidney disease with stage 1 through stage 4 chronic kidney disease, or unspecified chronic kidney disease; N18.4 Chronic kidney disease, stage 4 (severe) | CPT/HCPCS: 99212 ==